=== PATIENT | female | born 1955 | race Caucasian/White ===

== ENCOUNTER → 2017-12-09 09:16 | Outpatient (CLI) | payer BC, SELFPAY ==
[2017-12-09 12:24] LABS: Absolute Lymphocyte Count 1.89 X10^3/ul (0.83-4.51); Absolute Neutrophil Count 3.3 X10^3/uL (2.0-7.7); Basophil# 0.02 X10^3/uL; Basophil% 0.3 % (0-1); Eosinophils% 3.3 % (0-5); Hematocrit 39.5 % (37-47); Hemoglobin 12.7 g/dl (12.0-15.0); Lymphocyte # 1.89 X10^3/ul (4.0); Lymphocyte % 31.1 % (19-41); Mean Corp Hgb Conc 32.2 g/gl (32-36); Mean Corpuscular Hgb 29.3 pg (27.0-32.0); Mean Corpuscular Volume 91.2 fL (81-99); Mean Platelet Vol. 10.8 fl (6.2-12.0); Monocyte# 0.71 X10^3/uL; Monocyte% 11.7 % (0-10); Neutrophil # 3.26 X10^3/uL (2.7-7.7); Neutrophil % 53.6 % (47-70); Platelet Count 286 K/mm3 (150-450); RBC Distribution Width CV 13.7 % (11.6-14.6); RBC Distribution Width SD 45.5 fl (35.1-43.9); Red Blood Count 4.33 M/mm3 (4.2-5.4); White Blood Count 6.1 K/mm3 (4.4-11.0)
[2017-12-09 12:36] LABS: POSITIVE COUNT NO; POSITIVE DIFFERENTIAL NO; POSITIVE MORPHOLOGY NO
[2017-12-09 12:37] LABS: Hemoglobin A1c 5.8 % (4.2-6.3)
[2017-12-09 12:40] LABS: ALB/GLOB Ratio 1.2 RATIO (0.9-2.4); AST(SGOT) 18 U/L (15-37); Alanine Aminotransfer ALT/SGPT 26 U/L (13-56); Albumin, Serum 3.7 g/dL (3.2-5.0); Alkaline Phosphatase 64 U/L (45-117); Anion Gap 4 (5-15); BUN 20 mg/dL (7-18); BUN/Creat Ratio 30.7 RATIO (10-20); Calcium,Total 8.4 mg/dL (8.5-10.1); Chloride 104 mmol/L (98-107); Creatinine, Serum 0.65 mg/dL (0.55-1.02); EST Glomerular Filtration Rate 98 mL/min (>60); Est Glom Filt Rate - Afr Amer 119 mL/min (>60); Globulin 3.2 g/dL (2.2-4.2); Glucose 98 mg/dL (74-106); Potassium 3.9 mmol/L (3.5-5.1); Protein, Total 6.9 g/dL (6.4-8.2); Sodium Level 139 mmol/L (136-145); T4 Free Direct 1.25 ng/dL (0.76-1.46); Thyroid Stim Hormone (TSH) 1.24 uIU/mL (0.358-3.74)
== END ==
PROVIDERS: Family Provider Family Medicine; PCP Family Medicine; Visit Provider Family Medicine
DX: E03.9 Hypothyroidism, unspecified (principal); I10 Essential (primary) hypertension; R73.01 Impaired fasting glucose
CPT/HCPCS: 36415; 80053; 83036; 84439; 84443; 85025

== ENCOUNTER → 2018-12-13 08:31 | Outpatient (CLI) | payer BC, SELFPAY ==
[2018-12-13 10:42] LABS: Absolute Lymphocyte Count 2.44 X10^3/ul (0.83-4.51); Absolute Neutrophil Count 2.4 X10^3/uL (2.0-7.7); Basophil# 0.04 X10^3/uL; Basophil% 0.7 % (0-1); Eosinophil# 0.22 X10^3/uL; Eosinophils% 3.8 % (0-5); Hematocrit 39.9 % (37-47); Hemoglobin 13.1 g/dl (12.0-15.0); Lymphocyte # 2.44 X10^3/ul (4.0); Lymphocyte % 42.3 % (19-41); Mean Corp Hgb Conc 32.8 g/gl (32-36); Mean Corpuscular Hgb 29.3 pg (27.0-32.0); Mean Corpuscular Volume 89.3 fL (81-99); Mean Platelet Vol. 10.7 fl (6.2-12.0); Monocyte# 0.68 X10^3/uL; Monocyte% 11.8 % (0-10); Neutrophil # 2.39 X10^3/uL (2.7-7.7); Neutrophil % 41.4 % (47-70); Platelet Count 239 K/mm3 (150-450); RBC Distribution Width CV 14.1 % (11.6-14.6); RBC Distribution Width SD 46.1 fl (35.1-43.9); Red Blood Count 4.47 M/mm3 (4.2-5.4); White Blood Count 5.8 K/mm3 (4.4-11.0)
[2018-12-13 10:53] LABS: POSITIVE COUNT NO; POSITIVE DIFFERENTIAL NO; POSITIVE MORPHOLOGY NO
[2018-12-13 11:00] LABS: ALB/GLOB Ratio 1.1 RATIO (0.9-2.4); AST(SGOT) 17 U/L (15-37); Alanine Aminotransfer ALT/SGPT 26 U/L (13-56); Albumin, Serum 3.8 g/dL (3.2-5.0); Alkaline Phosphatase 61 U/L (45-117); Anion Gap 6 (5-15); BUN 23 mg/dL (7-18); BUN/Creat Ratio 29.6 RATIO (10-20); Calcium,Total 8.7 mg/dL (8.5-10.1); Chloride 105 mmol/L (98-107); Creatinine, Serum 0.78 mg/dL (0.55-1.02); EST Glomerular Filtration Rate 80 mL/min (>60); Est Glom Filt Rate - Afr Amer 96 mL/min (>60); Globulin 3.4 g/dL (2.2-4.2); Glucose 108 mg/dL (74-106); Potassium 3.8 mmol/L (3.5-5.1); Protein, Total 7.2 g/dL (6.4-8.2); Sodium Level 141 mmol/L (136-145); Thyroid Stim Hormone (TSH) 0.35 uIU/mL (0.358-3.74)
== END ==
PROVIDERS: Family Provider Family Medicine; PCP Family Medicine; Visit Provider Family Medicine
DX: I10 Essential (primary) hypertension (principal); R73.01 Impaired fasting glucose; G25.81 Restless legs syndrome; E03.9 Hypothyroidism, unspecified
CPT/HCPCS: 36415; 80053; 84443; 85025

== ENCOUNTER → 2019-01-31 | Outpatient (CLI) | payer BC, SELFPAY | END | disposition home or self-care (01) | LOC: LAB.FUTURE 11:02 | PROVIDERS: Family Provider Family Medicine; PCP Family Medicine; Visit Provider Family Medicine | DX: E03.9 Hypothyroidism, unspecified (principal) | CPT/HCPCS: 36415; 84443 ==

== ENCOUNTER → 2020-07-09 09:59 | Outpatient (CLI) | payer OTHER, SELFPAY ==
[2020-07-09 12:20] LABS: Absolute Lymphocyte Count 1.84 X10^3/uL (0.83-4.51); Absolute Neutrophil Count 4.1 X10^3/uL (2.0-7.7); Basophil# 0.05 X10^3/uL; Basophil% 0.7 % (0-1); Eosinophil# 0.15 X10^3/uL; Eosinophils% 2.2 % (0-5); Hematocrit 42.5 % (37-47); Hemoglobin 13.4 g/dL (12.0-15.0); Lymphocyte # 1.84 X10^3/ul (4.0); Lymphocyte % 27.1 % (19-41); Mean Corp Hgb Conc 31.5 g/dL (32-36); Mean Corpuscular Hgb 28.6 pg (27.0-32.0); Mean Corpuscular Volume 90.8 fL (81-99); Mean Platelet Vol. 11.3 fl (6.2-12.0); Monocyte# 0.64 X10^3/uL; Monocyte% 9.4 % (0-10); NRBC Flagged by Analyzer 0 % (0-5); Neutrophil # 4.09 X10^3/uL (2.7-7.7); Neutrophil % 60.5 % (47-70); Platelet Count 263 K/mm3 (150-450); RBC Distribution Width CV 13.8 % (11.6-14.6); RBC Distribution Width SD 46.3 fl (35.1-43.9); Red Blood Count 4.68 M/mm3 (4.2-5.4); White Blood Count 6.8 K/mm3 (4.4-11.0)
[2020-07-09 12:52] LABS: ALB/GLOB Ratio 1.1 RATIO (0.9-2.4); AST(SGOT) 16 U/L (15-37); Alanine Aminotransfer ALT/SGPT 30 U/L (13-56); Albumin, Serum 3.8 g/dL (3.2-5.0); Alkaline Phosphatase 68 U/L (45-117); Anion Gap 8 (5-15); BUN 26 mg/dL (7-18); BUN/Creat Ratio 36.3 RATIO (10-20); Calcium,Total 8.7 mg/dL (8.5-10.1); Chloride 104 mmol/L (98-107); Creatinine, Serum 0.72 mg/dL (0.55-1.02); EST Glomerular Filtration Rate 87 mL/min (>60); Est Glom Filt Rate - Afr Amer 105 mL/min (>60); Globulin 3.4 g/dL (2.2-4.2); Glucose 99 mg/dL (74-106); Potassium 3.6 mmol/L (3.5-5.1); Protein, Total 7.2 g/dL (6.4-8.2); Sodium Level 140 mmol/L (136-145); Thyroid Stim Hormone (TSH) 0.95 uIU/mL (0.358-3.74)
== END ==
PROVIDERS: PCP Family Medicine; Visit Provider Family Medicine
DX: E03.9 Hypothyroidism, unspecified (principal); I10 Essential (primary) hypertension; R73.01 Impaired fasting glucose
CPT/HCPCS: 36415; 80053; 84443; 85025

== ENCOUNTER → 2021-01-07 09:55 | Outpatient (CLI) | payer MEDICARE, OTHER, SELFPAY ==
[2021-01-07 12:47] LABS: Absolute Lymphocyte Count 2.02 X10^3/uL (0.83-4.51); Absolute Neutrophil Count 4.6 X10^3/uL (2.0-7.7); Basophil# 0.04 X10^3/uL; Basophil% 0.5 % (0-1); Eosinophil# 0.18 X10^3/uL; Eosinophils% 2.4 % (0-5); Hematocrit 44.2 % (37-47); Hemoglobin 14.1 g/dL (12.0-15.0); Lymphocyte # 2.02 X10^3/ul (0.83-4.51); Lymphocyte % 26.8 % (19-41); Mean Corp Hgb Conc 31.9 g/dL (32-36); Mean Corpuscular Volume 90.9 fL (81-99); Mean Platelet Vol. 11.7 fl (6.2-12.0); Monocyte% 9.3 % (0-10); NRBC Flagged by Analyzer 0 % (0-5); Neutrophil # 4.57 X10^3/uL (2.7-7.7); Neutrophil % 60.7 % (47-70); Platelet Count 302 K/mm3 (150-450); RBC Distribution Width CV 13.4 % (11.6-14.6); RBC Distribution Width SD 45.4 fl (35.1-43.9); Red Blood Count 4.86 M/mm3 (4.2-5.4); White Blood Count 7.5 K/mm3 (4.4-11.0)
[2021-01-07 13:15] LABS: Anion Gap 5 (5-15); BUN 19 mg/dL (7-18); BUN/Creat Ratio 23.2 RATIO (10-20); Calcium,Total 9.1 mg/dL (8.5-10.1); Chloride 104 mmol/L (98-107); Creatinine, Serum 0.82 mg/dL (0.55-1.02); EST Glomerular Filtration Rate 74 mL/min (>60); Est Glom Filt Rate - Afr Amer 90 mL/min (>60); Glucose 102 mg/dL (74-106); Potassium 3.8 mmol/L (3.5-5.1); Sodium Level 140 mmol/L (136-145); T4 Free Direct 1.16 ng/dL (0.76-1.46); Thyroid Stim Hormone (TSH) 1.06 uIU/mL (0.358-3.74)
== END ==
PROVIDERS: PCP Family Medicine; Referring Provider Family Medicine; Visit Provider Family Medicine
DX: I10 Essential (primary) hypertension (principal); R73.01 Impaired fasting glucose; E03.9 Hypothyroidism, unspecified; R53.83 Other fatigue
CPT/HCPCS: 36415; 80048; 84439; 84443; 85025

== ENCOUNTER → 2021-02-06 09:15 | Outpatient (CLI) | payer MEDICARE, OTHER, SELFPAY ==
[2021-02-06 12:39] LABS: Thyroid Stim Hormone (TSH) 0.89 uIU/mL (0.358-3.74)
== END ==
PROVIDERS: PCP Family Medicine; Referring Provider Family Medicine; Visit Provider Family Medicine
DX: E03.9 Hypothyroidism, unspecified (principal)
CPT/HCPCS: 36415; 84443

== ENCOUNTER 2021-09-29 07:30 | Emergency (ER) | payer MEDICARE, OTHER, SELFPAY ==
[2021-09-29 07:31] VITALS: BP 151/86; PULSE 108; RESP 18; TEMP 36; O2SAT 92; BMI 37.3
--- NOTE | 2021-09-29 07:44 | CT_ITS ---
STUDY: CT ABDOMEN AND PELVIS WITH CONTRAST REASON FOR EXAM: Female, 65 years old. Abdominal pain -- IV PO Contrast RADIATION DOSAGE (If Supplied By Facility): CTDIvol = ( 20.22 ) mGy, DLP = ( 1380.55 ) mGycm TECHNIQUE: Transaxial images were obtained from the dome of the diaphragm to the symphysis pubis with oral contrast. Oral and amp; IV Gastrografin and amp; 100mL Isovue-370 was administered. Sagittal and coronal images were reconstructed. Individualized dose optimization techniques were used for this CT. COMPARISON: None. FINDINGS: The visualized lung bases are unremarkable. The visualized portions of the heart are within normal limits. Normal liver. Normal gallbladder and extrahepatic biliary system. Normal spleen. Normal pancreas. Normal bilateral adrenal glands. Normal right kidney. Normal left kidney. Normal visualized stomach. Moderately dilated ileum. Irregular circumferential wall thickening of the mid sigmoid colon worrisome for colonic carcinoma. Moderate dilatation of the colon proximal to the suspected mass. There is non-visualization of the appendix. Normal abdominal aorta. Normal inferior vena cava. Normal retroperitoneum. Normal urinary bladder. Small amount of free fluid in the pelvis. Normal abdominal wall. Normal osseous structures. 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 Electronically Signed: Tashi Brown MD at 11:04 EST Tel , Service support ,
--- NOTE | 2021-09-29 07:46 | ED.VIS.GI ---
HPI HPI - GI History of Present Illness Chief Complaint: Abd Pain Informant: patient Abdominal Pain/Flank Pain Onset: Weeks (1) Context: Gradual Onset Timing: Intermittent Quality: Aching, Burning and Stabbing Location: Diffuse Worsened by: Movement Relieved by: Nothing Nausea/Vomiting/Emesis GI Symptom: Positive for Nausea and Vomiting Diarrhea/Melena/Hematochezia GI Symptom: Negative for Diarrhea, Melena and Hematochezia Associated Symptoms Associated Symptoms: Negative for Dysuria, Frequency and Hematuria Narrative Narrative: Patient presents with abdominal pain and constipation that has been getting worse over the past week. Patient states it is gradually getting worse. Patient states her pain is burning, stabbing, and aching. Patient states her pain comes and goes. Patient states her pain is diffuse across her abdomen. Patient states it is worse when she moves certain ways. Patient states she has been constipated for the past week. Patient states she has tried magnesium citrate, seae-[id number]-[id number] enemas, and rull-jcg-sirpfac laxatives without relief. Patient states she started having some nausea and vomiting over the last couple days. Patient states her emesis is mostly dry heaves. Patient denies any melena or hematochezia. Patient denies any urinary complaints. [facility] Medical History (Updated 09/29/21 @ 13:[address] Maurice Plummer, ) Abnormal CT scan, colon Anxiety Depression Hypertension Hypothyroidism Home Medications fluoxetine 40 mg PO DAILY 09/29/21 [History Last Taken Unknown] hydrochlorothiazide 25 mg PO DAILY 09/29/21 [History Last Taken Unknown] hydrocodone-acetaminophen 1 tab PO Q6H PRN PRN 3 Days #10 tablet 09/29/21 [Rx Last Taken Unknown] levothyroxine 125 mcg PO DAILY 09/29/21 [History Last Taken Unknown] omeprazole 20 mg PO DAILY #30 capsule 09/29/21 [Rx Last Taken Unknown] ondansetron 4 mg PO Q8H PRN PRN #10 tab 09/29/21 [Rx Last Taken Unknown] Allergy/AdvReac Type Severity Reaction Status Date / Time Penicillins Allergy Anaphylaxis Verified 09/29/21 07:30 Social History Smoking Status: Unknown if ever smoked ROS ROS ED Constitutional Constitutional ED: Denies chills or fever(s) Eyes Eyes: Denies blurry vision or change in vision ENT ENT ED: Denies rhinorrhea or sore throat Cardiovascular Cardiovascular: Denies chest pain or palpitations Respiratory/Chest Respiratory/Chest: Reports dyspnea; Denies cough Gastrointestinal Gastrointestinal: Reports abdominal pain, constipation, nausea and vomiting Genitourinary Genitourinary ED: Denies dysuria or hematuria Musculoskeletal Musculoskeletal: Denies back pain or neck pain Integumentary Denies abscess or rash Neurologic Neurologic: Denies headache(s) or weakness Allergic/Immunologic Allergic/Immunologic ED: Denies mouth swelling or urticaria EXAM Physical Exam Const Vital Signs: 09/29/21 07:31 09/29/21 11:16 Temperature 96.8 F L 98.5 F Temperature Source Temporal Oral Pulse Rate 108 H 66 Respiratory Rate 18 16 Blood Pressure 151/86 H 155/65 H Blood Pressure Mean 107 95 Pulse Ox 92 95 Oxygen Delivery Method Room Air Room Air Positive well nourished and well developed General Appearance ED: well developed HEENT Reports moist mucous membranes Neck supple and no JVD Resp normal respiratory effort and clear to auscultation bilaterally Cardio regular rate, regular rhythm and no murmurs GI normal to inspection, nondistended, normoactive bowel sounds Palpation: soft and tender epigastric, LLQ, RLQ, LUQ, RUQ, periumbilical and suprapubic; Negative for guarding or rebound tenderness present Extremity normal to inspection General Extremety ED: Negative for edema or tenderness General Extremity: Negative for edema Neuro oriented x3, CN's II-XII intact bilaterally and no sensory deficits noted Sensorium / Orientation: alert Motor Exam: strength 5/5 throughout Psych mental status grossly normal Skin no rashes or lesions noted MDM MDM MDM Narrative Medical decision making narrative: Patient was given IV fluids, morphine, and Zofran. CBC shows a mild leukocytosis of 14.1. Hemoglobin was 15.6. Comprehensive metabolic profile showed a hypokalemia of 2.9. BUN was slightly elevated at 29. Creatinine was normal. Lipase was normal. Urinalysis does not show any evidence of urinary tract infection. CT scan of the abdomen pelvis was obtained. There is both colonic carcinoma of the sigmoid colon with moderate colonic and ileal obstruction. Because of this, case was discussed with Dr. Husain from general surgery. She was in to evaluate the patient and will follow up with the patient as an outpatient. She recommended discharging the patient home with [place], Zofran, and omeprazole. She will contact patient tomorrow to schedule follow-up treatments. Patient is feeling better on reevaluation. Patient was given a dose of potassium here prior to discharge. Patient understands and is agreeable with the plan. All questions were answered. Lab Data Attestation: I reviewed the patient's lab results. Labs: Laboratory Results - last 24 hr 09/29/21 09/29/21 09/29/21 08:00 08:00 10:10 WBC 14.1 H RBC 5.29 Hgb 15.6 H Hct 46.1 MCV 87.1 MCH 29.5 MCHC 33.8 RDW Std Deviation 41.9 RDW Coeff of [place]lee 13.2 Plt Count 366 MPV 10.7 Immature Gran % (Auto) 0.300 Neut % (Auto) 73.6 H Lymph % (Auto) 13.8 L [place] % (Auto) 11.9 H Eos % (Auto) 0.1 Baso % (Auto) 0.3 Absolute Neuts (auto) 10.4 H Absolute Lymphs (auto) 1.94 Nucleated RBC % 0 [address] Path Review May foll Sodium 137 Potassium 2.9 L Chloride 98 Carbon Dioxide 26.0 Anion Gap 13 BUN 29 H Creatinine 0.89 Estim Creat Clear Calc 68.15 Est GFR (MDRD) Af Amer 82 Est GFR (MDRD) Non-Af 68 BUN/Creatinine Ratio 32.6 H Glucose 149 H Calcium 9.9 Total Bilirubin 1.10 H AST 20 ALT 26 Alkaline Phosphatase 72 Total Protein 7.8 Albumin 3.9 Globulin 3.9 Albumin/Globulin Ratio 1.0 Lipase 27 L Urine Color Yellow Urine Clarity Clear Urine pH 6.0 Ur Specific [place] 1.025 Urine Protein 30 H Urine Glucose (UA) Normal Urine Ketones 150 A* Urine Occult Blood 25 H Urine Nitrite Negative Urine Bilirubin 3 H Urine Urobilinogen 4 H Ur Leukocyte Esterase Negative Urine RBC 0 SEEN Urine WBC 0 SEEN Ur Squamous Epith Cells 0-5 SEEN Urine Bacteria 0 SEEN Urine Mucus 0 SEEN Radiography Diagnostic Testing: Clinical Impression(s) from Imaging Studies Abdomen/Pelvis CT 09/29/21 07:44 IMPRESSION: 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 Electronically Signed: Tashi Brown MD at 11:04 EST Tel , Service support , Discharge Plan Triage Chief Complaint: Abd Pain ED Provider: Maurice Plummer Dx/Rx/DC Orders Clinical Impression: Abnormal CT scan, colon Instructions: ED Abdominal Pain Unkn Cause Fem Prescriptions: New hydrocodone-acetaminophen [hydrocodone-acetaminophen] 1 TABLET tablet 1 tab PO Q6H PRN PRN (Reason: Pain) 3 Days Qty: 10 RF: 0 omeprazole [omeprazole] 20 MG capsule 20 mg PO DAILY Qty: 30 RF: 0 ondansetron [ondansetron] 4 MG tablet 4 mg PO Q8H PRN PRN (Reason: Nausea) Qty: 10 RF: 0 No Action fluoxetine 40 mg capsule 40 mg PO DAILY RF: 0 levothyroxine 125 mcg tablet 125 mcg PO DAILY RF: 0 hydrochlorothiazide 25 mg tablet 25 mg PO DAILY RF: 0 Primary Care Provider: Raz Washington Referrals: Abi Husain MD [STAFF PHYSICIAN] - As soon as possible Raz Washington MD [Primary Care Provider] - Disposition Disposition: Home, Self Care
[2021-09-29] MEDS: 0.9% Normal Saline 1,000 ML 1000 ML IV (07:58)
[2021-09-29] MEDS: Ondansetron 4 MG/2 ML Vial IV ×2 (07:58→13:34)
[2021-09-29] MEDS: Morphine 4 MG/ML Syringe IV (07:58)
[2021-09-29 08:10] LABS: Absolute Lymphocyte Count 1.94 X10^3/uL (0.83-4.51); Absolute Neutrophil Count 10.4 X10^3/uL (2.0-7.7); Basophil# 0.04 X10^3/uL; Basophil% 0.3 % (0-1); Eosinophil# 0.01 X10^3/uL; Eosinophils% 0.1 % (0-5); Hematocrit 46.1 % (37-47); Hemoglobin 15.6 g/dL (12.0-15.0); Lymphocyte # 1.94 X10^3/ul (0.83-4.51); Lymphocyte % 13.8 % (19-41); Mean Corp Hgb Conc 33.8 g/dL (32-36); Mean Corpuscular Hgb 29.5 pg (27.0-32.0); Mean Corpuscular Volume 87.1 fL (81-99); Mean Platelet Vol. 10.7 fl (6.2-12.0); Monocyte# 1.67 X10^3/uL; Monocyte% 11.9 % (0-10); NRBC Flagged by Analyzer 0 % (0-5); Neutrophil # 10.39 X10^3/uL (2.7-7.7); Neutrophil % 73.6 % (47-70); POSITIVE DIFFERENTIAL YES; Platelet Count 366 K/mm3 (150-450); RBC Distribution Width CV 13.2 % (11.6-14.6); RBC Distribution Width SD 41.9 fl (35.1-43.9); Red Blood Count 5.29 M/mm3 (4.2-5.4); White Blood Count 14.1 K/mm3 (4.4-11.0)
[2021-09-29 08:11] LABS: Differential Indicated SCAN CRITERIA MET
[2021-09-29 08:24] LABS: AST(SGOT) 20 U/L (15-37); Alanine Aminotransfer ALT/SGPT 26 U/L (13-56); Albumin, Serum 3.9 g/dL (3.2-5.0); Alkaline Phosphatase 72 U/L (45-117); Anion Gap 13 (5-15); BUN 29 mg/dL (7-18); BUN/Creat Ratio 32.6 RATIO (10-20); Calcium,Total 9.9 mg/dL (8.5-10.1); Chloride 98 mmol/L (98-107); Creatinine, Serum 0.89 mg/dL (0.55-1.02); EST Glomerular Filtration Rate 68 mL/min (>60); Est Glom Filt Rate - Afr Amer 82 mL/min (>60); Estimated Creatinine Clearance 68.15 ml/min; Globulin 3.9 g/dL (2.2-4.2); Glucose 149 mg/dL (74-106); Lipase 27 U/L (73-393); Potassium 2.9 mmol/L (3.5-5.1); Protein, Total 7.8 g/dL (6.4-8.2); Sodium Level 137 mmol/L (136-145)
[2021-09-29 10:16] LABS: Bacteria 0 SEEN /hpf (None Seen); Mucous, Urine 0 SEEN /hpf (<or=2+); Red Blood Cells-Urine 0 SEEN /hpf (0-5); White Blood Cells 0 SEEN /hpf (0-5)
[2021-09-29 10:17] LABS: Color, Urine Yellow (Yellow); Glucose, Dipstick Normal (Normal); Leukocyte Esterase-Dipstick Negative /ul (Negative); Nitrite-Dipstick Negative (Negative); Occult Blood-Urine 25 /ul (Negative); Protein-Dipstick 30 mg/dl (Negative); Specific Gravity, Urine 1.025 (1.002-1.030); Urine Clarity Clear (Clear); Urine Urobilinogen 4 mg/dl (Normal)
[2021-09-29 10:22] LABS: Ketone-Dipstick 150 mg/dl (Negative); Urine Bilirubin Dipstick 3 mg/dL (Negative)
[2021-09-29 10:24] LABS: Squamous Epithelial Cells - UA 0-5 SEEN /hpf (5-10)
[2021-09-29 11:16] VITALS: BP 155/65; PULSE 66; RESP 16; TEMP 36.9; O2SAT 95
--- NOTE | 2021-09-29 13:01 | CON.PCM.SX_ITS ---
Assessment & Plan Assessment/Plan (1) Abnormal CT scan, colon: PLAN: Will plan for patient to stay on clear liquid diet, avoid carbonated beverages. I will contact her tomorrow to schedule for colonoscopy Discharge from ED on PPI, zofran and pain meds Her cell phone number is HPI Consult Data Date of Consult: 09/29/21 HPI Narrative HPI Narrative: KATIANA MIRANDA, is a 65 F who presents with abdominal pain. I was asked by Dr. Maurice Plummer to evaluate this patient at [facility]. The patient notes an increasing problem with constipation for the past several weeks.. She states that she has jeny using miralax, enemas, and suppositories. Her last bowel movement which she states was small was Thursday morning (yesterday). She has been passing flatus. She does complain of lower abdominal sharp pain intermittently, sometimes 8 out of 10, but presently 4 out of 10. She states that in the past several days, she has had the abdominal pain. She notes increased intraabdominal bloating and increased eructation. She has also noted dry heaves and nausea and with decreased appetite. She denies fevers. She presented to [facility] ED and found to have elevated WBC with left shift. CT scan is suggestive of large bowel obstruction She had a colonoscopy in 2012, but couldn't advance beyond splenic flexure, barium enema was read out as no colonic lesions. She denies anemia. She denies blood in her stools, she denies melena. She denies hematemesis. No colon cancer noted in immediate family. [facility] Medical History Abnormal CT scan, colon Anxiety Depression Hypertension Hypothyroidism Home Medications fluoxetine 40 mg PO DAILY 09/29/21 [History Last Taken Unknown] hydrochlorothiazide 25 mg PO DAILY 09/29/21 [History Last Taken Unknown] hydrocodone-acetaminophen 1 tab PO Q6H PRN PRN 3 Days #10 tablet 09/29/21 [Rx Last Taken Unknown] levothyroxine 125 mcg PO DAILY 09/29/21 [History Last Taken Unknown] omeprazole 20 mg PO DAILY #30 capsule 09/29/21 [Rx Last Taken Unknown] ondansetron 4 mg PO Q8H PRN PRN #10 tab 09/29/21 [Rx Last Taken Unknown] Allergy/AdvReac Type Severity Reaction Status Date / Time Penicillins Allergy Anaphylaxis Verified 09/29/21 07:30 Surgical History no surgical history no surgical history (Past surgical history: hysterectomy and tonsillectomy) Social History Smoking Status: Unknown if ever smoked ROS Constitutional Constitutional: Reports anorexia; Denies fever(s) Respiratory/Chest Respiratory/Chest: Reports shortness of breath with exertion Gastrointestinal Gastrointestinal: Reports other Details: see HPI Genitourinary Genitourinary: Denies hematuria Musculoskeletal Musculoskeletal: Reports joint pain Integumentary Integumentary: Reports jaundice Neurologic Neurologic: Reports abnormal gait Physical Exam Const alert, oriented x3 and no apparent distress HEENT normocephalic and head/scalp atraumatic Eyes EOMs intact bilaterally Neck supple Resp normal respiratory effort and no retractions Cardio Rate: regular rate GI soft to palpation GI Narrative: abdomen is soft and benign, no peritoneal signs noted, obese, cannot determine if any masses/organomegaly/hernias due to body habitus Extremity General Extremity: Negative for edema Skin no jaundice Lab / Micro Data Result Diagrams: 09/29/21 08:00 09/29/21 08:00 Labs: Laboratory Results - last 24 hr 09/29/21 08:00: WBC 14.1 H, RBC 5.29, Hgb 15.6 H, Hct 46.1, MCV 87.1, MCH 29.5, MCHC 33.8, RDW Std Deviation 41.9, RDW Coeff of Marlee 13.2, Plt Count 366, MPV 10.7, Immature Gran % (Auto) 0.300, Neut % (Auto) 73.6 H, Lymph % (Auto) 13.8 L, [place] % (Auto) 11.9 H, Eos % (Auto) 0.1, Baso % (Auto) 0.3, Absolute Neuts (auto) 10.4 H, Absolute Lymphs (auto) 1.94, Nucleated RBC % 0, Diff Path Review January09/29/21 08:00: Sodium 137, Potassium 2.9 L, Chloride 98, Carbon Dioxide 26.0, Anion Gap 13, BUN 29 H, Creatinine 0.89, Estim Creat Clear Calc 68.15, Est GFR ( MDRD) Af Amer 82, Est GFR (MDRD) Non-Af 68, BUN/Creatinine Ratio 32.6 H, Glucose 149 H, Calcium 9.9, Total Bilirubin 1.10 H, AST 20, ALT 26, Alkaline Phosphatase 72, Total Protein 7.8, Albumin 3.9, Globulin 3.9, Albumin/Globulin Ratio 1.0, Lipase 27 L 09/29/21 10:10: Urine Color Yellow, Urine Clarity Clear, Urine pH 6.0, Ur Specific [place] 1.025, Urine Protein 30 H, Urine Glucose (UA) Normal, Urine Ketones 150 A*, Urine Occult Blood 25 H, Urine Nitrite Negative, Urine Bilirubin 3 H, Urine Urobilinogen 4 H, Ur Leukocyte Esterase Negative, Urine RBC 0 SEEN, Urine WBC 0 SEEN, Ur Squamous Epith Cells 0-5 SEEN, Urine Bacteria 0 SEEN, Urine Mucus 0 SEEN Radiology Impression Abdomen/Pelvis CT 09/29/21 07:44 IMPRESSION: 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 Electronically Signed: Tashi Brown MD at 11:04 EST Tel , Service support ,
[2021-09-29 13:28] VITALS: BP 149/72; PULSE 78; RESP 18; O2SAT 99
[2021-09-29] MEDS: Potassium Chloride Oral Tablet 20 MEQ 40 MEQ PO (13:34)
[2021-09-30 13:52] LABS: Pathologist Review Reviewed
== END 2021-09-29 13:58 | disposition home or self-care (01) ==
PROVIDERS: Emergency Provider Emergency Medicine; PCP Family Medicine; Visit Provider Emergency Medicine
DX: R93.3 Abnormal findings on diagnostic imaging of other parts of digestive tract (principal); R11.2 Nausea with vomiting, unspecified; I10 Essential (primary) hypertension; E03.9 Hypothyroidism, unspecified; Z79.899 Other long term (current) drug therapy
CPT/HCPCS: 74177; 80053; 81001; 83690; 85025; 96361; 96374; 96375; 96376; 99284; J7030; Q9967; A4216; J2405

== ENCOUNTER 2021-10-08 07:56 | Outpatient (CLI) | payer MEDICARE, OTHER, SELFPAY ==
--- NOTE | 2021-10-08 08:08 | RAD_ITS ---
STUDY: GASTROGRAFIN ENEMA. REASON FOR EXAM: Female, 65 years old. Colonic obstruction FLUOROSCOPY TIME (if supplied): ( 62 seconds ) minutes/seconds. 14 images were obtained. TECHNIQUE: A college scouting coordinator film was obtained. Following this, contrast was introduced retrograde through the rectum. COMPARISON: None. FINDINGS: On the college scouting coordinator film, there is a gaseous distention of the colon and multiple small bowel loops. Retrograde flow of GASTROGRAFIN was obtained. There is retrograde obstruction to the flow of contrast in the mid sigmoid level. RAD/Barium Enema No Air Cont IMPRESSION: Obstruction to the retrograde flow of GASTROGRAFIN in the mid sigmoid level. Electronically Signed: [place] MD at 9:47 EST , Service support ,
== END 2021-10-08 23:59 | disposition short-term general hospital (02) ==
LOC: RAD 07:57
PROVIDERS: PCP Family Medicine; Referring Provider Surgery; Visit Provider Surgery
DX: K56.609 Unspecified intestinal obstruction, unspecified as to partial versus complete obstruction (principal)
CPT/HCPCS: 74270

== ENCOUNTER 2021-10-08 11:48 | Inpatient (IN) | payer MEDICARE, OTHER, SELFPAY ==
[2021-10-08] VITALS (8 sets, daily range): BP systolic 111–152; BP diastolic 51–85; PULSE 64–95; RESP 16–18; TEMP 36.3–37.1; O2SAT 95–99; BMI 35.9; BMI 37.5
--- NOTE | 2021-10-08 12:30 | EX.ED.DYSGE1 ---
HPI History of Present Illness Chief Complaint: Abd Pain Informant: patient Onset/Context/Timing Onset: Weeks Narrative Narrative: Patient sent in by Dr. Chacon secondary to large bowel obstruction. Patient reportedly was seen on the and found to have a large bowel obstruction. Dr. Husain attempted a colonoscopy but was unable to get through. She had a barium enema today that shows continued obstruction. Dr. Chacon was sending the patient to the emergency room. Dr. Gardiner was going to try a colonoscopy with possible stent placement. If this was unsuccessful Dr. Chacon may be taking the patient to surgery. Patient reports intermittent problems with constipation in the past but never anything this severe. She states she has not had a natural bowel movement in approximately week and a half. [facility] Medical History Abnormal CT scan, colon Anxiety Depression Hypertension Hypothyroidism Home Medications fluoxetine 40 mg PO DAILY 09/29/21 [History Last Taken Unknown] hydrochlorothiazide 25 mg PO DAILY 09/29/21 [History Last Taken Unknown] hydrocodone-acetaminophen 1 tab PO Q6H PRN PRN 3 Days #10 tablet 09/29/21 [Rx Last Taken Unknown] levothyroxine 125 mcg PO DAILY 09/29/21 [History Last Taken Unknown] omeprazole 20 mg PO DAILY #30 capsule 09/29/21 [Rx Last Taken Unknown] ondansetron 4 mg PO Q8H PRN PRN #10 tab 09/29/21 [Rx Last Taken Unknown] Allergy/AdvReac Type Severity Reaction Status Date / Time lisinopril Allergy Other Verified 10/08/21 13:00 Penicillins Allergy Anaphylaxis Verified 10/08/21 11:49 Social History Smoking Status: Unknown if ever smoked ROS ROS ED Constitutional Constitutional ED: Denies chills or fever(s) Eyes Eyes: Denies change in vision ENT ENT ED: Denies sore throat Cardiovascular Cardiovascular: Denies chest pain Respiratory/Chest Respiratory/Chest: Denies cough or dyspnea Gastrointestinal Gastrointestinal: Reports constipation, nausea, vomiting and other Details: Nausea and vomiting early in the course of illness, improved with antiemetics. ; Denies abdominal pain or diarrhea Genitourinary Genitourinary ED: Denies dysuria Musculoskeletal Musculoskeletal: Denies back pain Integumentary Denies rash Neurologic Neurologic: Denies headache(s) or weakness Psychiatric Psychiatric: Denies anxiety or depression Allergic/Immunologic Allergic/Immunologic ED: Denies urticaria EXAM Physical Exam Const Vital Signs: 10/08/21 11:48 Temperature 97.3 F L Temperature Source Temporal Pulse Rate 95 Respiratory Rate 18 Blood Pressure 152/82 H Blood Pressure Mean 105 Pulse Ox 98 Oxygen Delivery Method Room Air Positive well nourished and well developed General Appearance ED: well developed HEENT Reports moist mucous membranes Eyes PERRL and EOMs intact bilaterally Neck supple Chest Wall inspection of chest normal and palpation of chest normal Resp normal respiratory effort and clear to auscultation bilaterally Cardio regular rate and regular rhythm GI GI Narrative: Mild tenderness to palpation. No guarding or rebound. Hypoactive bowel sounds present. Palpation: soft Neuro Sensorium / Orientation: alert Psych mental status grossly normal Skin no rashes or lesions noted MDM MDM MDM Narrative Medical decision making narrative: Lab work and COVID test obtained per Dr. Chacon's request. Lab Data Labs: Laboratory Results - last 24 hr 10/08/21 10/08/21 12:18 12:35 WBC 12.8 H RBC 4.95 Hgb 14.9 Hct 43.3 MCV 87.5 MCH 30.1 MCHC 34.4 RDW Std Deviation 44.4 H RDW Coeff of [place] 14.0 Plt Count 341 MPV 10.0 Immature Gran % (Auto) 1.300 H Neut % (Auto) 68.1 Lymph % (Auto) 19.2 [place] % (Auto) 10.9 H Eos % (Auto) 0.2 Baso % (Auto) 0.3 Absolute Neuts (auto) 8.7 H Absolute Lymphs (auto) 2.46 Nucleated RBC % 0 PT 13.9 INR 1.1 APTT 30.3 Treatment and Re-Evaluation Comments:: Dr. Gardiner has been paged but I have yet to speak with him. I was notified by the OR that they are ready to take her down to endoscopy. I will speak with Dr. Gardiner when he is available but patient will be taken down to the endoscopy suite. Discharge Plan Triage Chief Complaint: Abd Pain ED Provider: Katey Collado Dx/Rx/DC Orders Clinical Impression: Large bowel obstruction Primary Care Provider: Raz Washington Disposition Disposition: [facility]
[2021-10-08 12:34] LABS: Absolute Lymphocyte Count 2.46 X10^3/uL (0.83-4.51); Absolute Neutrophil Count 8.7 X10^3/uL (2.0-7.7); Basophil# 0.04 X10^3/uL; Basophil% 0.3 % (0-1); Eosinophil# 0.03 X10^3/uL; Eosinophils% 0.2 % (0-5); Hematocrit 43.3 % (37-47); Hemoglobin 14.9 g/dL (12.0-15.0); Lymphocyte # 2.46 X10^3/ul (0.83-4.51); Lymphocyte % 19.2 % (19-41); Mean Corp Hgb Conc 34.4 g/dL (32-36); Mean Corpuscular Hgb 30.1 pg (27.0-32.0); Mean Corpuscular Volume 87.5 fL (81-99); Monocyte# 1.39 X10^3/uL; Monocyte% 10.9 % (0-10); NRBC Flagged by Analyzer 0 % (0-5); Neutrophil % 68.1 % (47-70); Platelet Count 341 K/mm3 (150-450); RBC Distribution Width SD 44.4 fl (35.1-43.9); Red Blood Count 4.95 M/mm3 (4.2-5.4); White Blood Count 12.8 K/mm3 (4.4-11.0)
[2021-10-08 12:51] LABS: International Normalized Ratio 1.1; Prothrombin Time (Protime)PT. 13.9 SECONDS (11.7-14.9)
[2021-10-08 12:52] LABS: Partial Thromboplast Time 30.3 Seconds (24.1-36.2)
[2021-10-08 13:10] LABS: AST(SGOT) 31 U/L (15-37); Alanine Aminotransfer ALT/SGPT 40 U/L (13-56); Albumin, Serum 3.8 g/dL (3.2-5.0); Alkaline Phosphatase 69 U/L (45-117); Anion Gap 11 (5-15); BUN 9 mg/dL (7-18); BUN/Creat Ratio 10.2 RATIO (10-20); Bilirubin, Direct 0.14 mg/dL (0.00-0.30); Calcium,Total 8.8 mg/dL (8.5-10.1); Chloride 103 mmol/L (98-107); Creatinine, Serum 0.88 mg/dL (0.55-1.02); EST Glomerular Filtration Rate 68 mL/min (>60); Est Glom Filt Rate - Afr Amer 83 mL/min (>60); Estimated Creatinine Clearance 68.92 ml/min; Globulin 3.2 g/dL (2.2-4.2); Glucose 105 mg/dL (74-106); Potassium 3.2 mmol/L (3.5-5.1); Prealbumin 21.3 mg/dL (20.0-40.0); Sodium Level 140 mmol/L (136-145)
[2021-10-08] MEDS: 0.9% Normal Saline 1,000 ML 15 ML IV (13:27)
--- NOTE | 2021-10-08 14:51 | EX.PCM.CON.G ---
HPI Consult Data Date of Consult: 10/08/21 HPI Narrative HPI Narrative: KATIANA MIRANDA, is a 65 F who presents to the ED with abdominal pain. She was here back on 09/29/2021 with worsening abdominal pain after having several weeks of worsening constipation. She had tried MiraLAX, enemas, suppositories and was not able to have a good bowel movement. She came into the ED for worsening abdominal distention and was seen by Dr. Abi Husain. A CT scan of the abdomen pelvis was suggestive of a large bowel obstruction. A colonoscopy for decompression was attempted but was unsuccessful. The patient was sent home and a consultation was put in for Dr. Anamaria Chacon to evaluate the patient. I was contacted for possible colonic stent placement. I requested that the patient get a double contrast barium enema. It displayed obstruction at the level of the sigmoid colon. Today she is coming for possible colonic decompression and possible sigmoid colectomy versus stent placement. All other 16 review of systems are negative except as per positive mentioned HPI [facility] Medical History Abnormal CT scan, colon Anxiety Depression Hypertension Hypothyroidism Home Medications fluoxetine 40 mg PO DAILY 09/29/21 [History Last Taken Unknown] hydrochlorothiazide 25 mg PO DAILY 09/29/21 [History Last Taken Unknown] hydrocodone-acetaminophen 1 tab PO Q6H PRN PRN 3 Days #10 tablet 09/29/21 [Rx Last Taken Unknown] levothyroxine 125 mcg PO DAILY 09/29/21 [History Last Taken Unknown] omeprazole 20 mg PO DAILY #30 capsule 09/29/21 [Rx Last Taken Unknown] ondansetron 4 mg PO Q8H PRN PRN #10 tab 09/29/21 [Rx Last Taken Unknown] Allergy/AdvReac Type Severity Reaction Status Date / Time Penicillins Allergy Anaphylaxis Verified Surgical History no surgical history Past surgical history: hysterectomy and tonsillectomy) Social History Smoking Status: Unknown if ever smoked Radiology Impression Abdomen/Pelvis CT 09/29/21 07:44 IMPRESSION: 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 Double contrast barium enema 10/08/21 Obstruction to the retrograde flow of GASTROGRAFIN in the mid sigmoid level. [facility] Medical History Abnormal CT scan, colon Anxiety Depression Hypertension Hypothyroidism Home Medications fluoxetine 40 mg PO DAILY 09/29/21 [History Last Taken Unknown] hydrochlorothiazide 25 mg PO DAILY 09/29/21 [History Last Taken Unknown] hydrocodone-acetaminophen 1 tab PO Q6H PRN PRN 3 Days #10 tablet 09/29/21 [Rx Last Taken Unknown] levothyroxine 125 mcg PO DAILY 09/29/21 [History Last Taken 10/08/21 09:30] omeprazole 20 mg PO DAILY #30 capsule 09/29/21 [Rx Last Taken Unknown] ondansetron 4 mg PO Q8H PRN PRN #10 tab 09/29/21 [Rx Last Taken Unknown] Allergy/AdvReac Type Severity Reaction Status Date / Time lisinopril Allergy Other Verified 10/08/21 13:00 Penicillins Allergy Anaphylaxis Verified 10/08/21 11:49 Social History Smoking Status: Unknown if ever smoked ROS Gastrointestinal Gastrointestinal: Reports bloating and early satiety Physical Exam Const alert General Appearance: cooperative Orientation / Consciousness: oriented to person HEENT hearing grossly normal bilaterally Head and Scalp: normal to inspection Face and Sinus: face symmetric Nose: external nose normal Mouth: oral and palatal mucosa normal Eyes conjunctivae normal General Eye: normal appearance of both eyes Neck full ROM General: normal visual inspection Lymph Lymphatic: no lymphadenopathy noted Chest inspection of chest normal and palpation of chest normal Chest: symmetrical chest wall rise Resp normal respiratory effort Effort and Inspection: able to speak in complete sentences Cardio regular rate GI Auscultation: normoactive bowel sounds Percussion: normal to percussion Rectal Exam: deferred Neuro Speech: speech normal Gait (Neuro): normal gait Lab / Micro Data Result Diagrams: 10/08/21 12:18 10/08/21 12:18 Labs: Laboratory Results - last 24 hr 10/08/21 12:18: WBC 12.8 H, RBC 4.95, Hgb 14.9, Hct 43.3, MCV 87.5, MCH 30.1, MCHC 34.4, RDW Std Deviation 44.4 H, RDW Coeff of Marlee 14.0, Plt Count 341, MPV 10.0, Immature Gran % (Auto) 1.300 H, Neut % (Auto) 68.1, Lymph % (Auto) 19.2, Worth % (Auto) 10.9 H, Eos % (Auto) 0.2, Baso % (Auto) 0.3, Absolute Neuts (auto) 8.7 H, Absolute Lymphs (auto) 2.46, Nucleated RBC % 0 10/08/21 12:18: Sodium 140, Potassium 3.2 L, Chloride 103, Carbon Dioxide 26.0, Anion Gap 11, BUN 9, Creatinine 0.88, Estim Creat Clear Calc 68.92, Est GFR (MDRD) Af Amer 83, Est GFR (MDRD) Non-Af 68, BUN/Creatinine Ratio 10.2, Glucose 105, Calcium 8.8, Total Bilirubin 0.50, Direct Bilirubin 0.14, AST 31, ALT 40, Alkaline Phosphatase 69, Total Protein 7.0, Albumin 3.8, Globulin 3.2, Prealbumin 21.3 10/08/21 12:35: PT 13.9, INR 1.1, APTT 30.3 Micro: Microbiology 10/08/21 12:35 Nasal Secretion SARS-CoV-2 Antigen (Rapid) - Final Assessment & Plan Assessment/Plan (1) Large bowel obstruction: PLAN: I will attempt decompression by colonoscopy. She was explained alternatives, risk, benefits including not withstanding bleeding, infection, sepsis, perforation, need for emergent . She will have an ASA of 1.
--- NOTE | 2021-10-08 16:01 | OP.CCLET_ITS ---
05/29/2022 Raz Washington Re : Colonoscopy procedure for Joanne Issa Dear Padmini This procedure was performed on Friday, October 08, 2021. My impressions and recommendations are as follows: Impressions : - Stricture in the sigmoid colon. - No specimens collected. Recommendations : - Admit the patient to hospital [facility] for ongoing care. - NPO. - No recommendation at this time regarding repeat colonoscopy. - Continue present medications. My findings are described in the full procedure note, which is enclosed. If I can be of further assistance, please feel free to contact me at . Sincerely, Yannick Gardiner, DO 10/08/2021 4:00:49 PM This report has been signed electronically.
--- NOTE | 2021-10-08 16:01 | OP.COLON_ITS ---
Patient Name: Joanne Issa Procedure Date: 10/08/2021 3:08 PM Date of : 1955 Age: 65 Procedure: Colonoscopy Indications: Abnormal barium enema Providers: Yannick Gardiner DO Medicines: See the Anesthesia note for documentation of the administered medications Patient Profile: This is a 65 year old female. Last Colonoscopy: 10 years ago. Complications: No immediate complications. Procedure: Pre-Anesthesia Assessment: - Prior to the procedure, a History and Physical was performed, and patient medications and allergies were reviewed. The patient is competent. The risks and benefits of the procedure and the sedation options and risks were discussed with the patient. All questions were answered and informed consent was obtained. Patient identification and proposed procedure were verified by the physician in the pre-procedure area. Mental Status Examination: alert and oriented. Respiratory Examination: clear to auscultation. CV Examination: normal. Prophylactic Antibiotics: The patient does not require prophylactic antibiotics. Prior Anticoagulants: The patient has taken no previous anticoagulant or antiplatelet agents. ASA Grade Assessment: II - A patient with mild systemic disease. After reviewing the risks and benefits, the patient was deemed in satisfactory condition to undergo the procedure. The anesthesia plan was to use moderate sedation / analgesia (conscious sedation). Immediately prior to administration of medications, the patient was re-assessed for adequacy to receive sedatives. The heart rate, respiratory rate, oxygen saturations, blood pressure, adequacy of pulmonary ventilation, and response to care were monitored throughout the procedure. The physical status of the patient was re-assessed after the procedure. After I obtained informed consent, the scope was passed under direct vision. Throughout the procedure, the patient's blood pressure, pulse, and oxygen saturations were monitored continuously. The colonoscope was introduced through the anus and advanced to the sigmoid colon to examine a stricture. This was the intended extent. The colonoscopy was performed without difficulty. The patient tolerated the procedure well. The quality of the bowel preparation was good. Moderate Sedation: Moderate (conscious) sedation was administered by the endoscopy nurse and supervised by the endoscopist. The patient's oxygen saturation, heart rate, blood pressure and response to care were monitored. Total physician intraservice time was 15 minutes. Scope In: 3:13:55 PM Scope Out: 3:50:00 PM Total Procedure Duration Time 0 hours 36 minutes 5 seconds Findings: The perianal and digital rectal examinations were normal. A benign-appearing, intrinsic severe stenosis measuring of unknown length was found in the sigmoid colon and was non-traversed. Impression: - Stricture in the sigmoid colon. - No specimens collected. Recommendation: - Admit the patient to hospital [facility] for ongoing care. - NPO. - No recommendation at this time regarding repeat colonoscopy. - Continue present medications. Procedure Code(s): --- Professional --- 29035, 53, Colonoscopy, flexible; diagnostic, including collection of specimen(s) by brushing or washing, when performed (separate procedure) 25696, 59, Moderate sedation services provided by the same physician or other qualified health home health care worker performing the diagnostic or therapeutic service that the sedation supports, requiring the presence of an independent trained observer to assist in the monitoring of the patient's level of consciousness and physiological status; initial 15 minutes of intraservice time, patient age 5 years or older CPT copyright 2017 [employer]. All rights reserved. The codes documented in this report are preliminary and upon machine riveter review may be revised to meet current compliance requirements. Yannick Gardiner DO 10/08/2021 4:00:49 PM This report has been signed electronically. Number of Addenda: 1 Note Initiated On: 10/08/2021 3:08 PM Addendum Number: 1 Addendum Date: 05/29/2022 6:15:03 AM MAC was used instead of moderate sedation for the patient. Yannick Gardiner DO 05/29/2022 6:15:09 AM This report has been signed electronically.
--- NOTE | 2021-10-08 16:07 | PCM.HP.STD ---
HPI - General General Date of Admission: 10/08/21 HPI Narrative KATIANA MIRANDA, is a 65 F who presented initially to the ER due to abdominal pain nausea and vomiting. Patient states since 09/23/2021 she has not been able to eat any solid food. Patient had a CT abdomen pelvis done on 09/29/2021 at the ER which showed a large bowel obstruction due to a stricture in the sigmoid. Patient denies previous episodes of diverticulitis. Last colonoscopy in 2012 was incomplete but BE was normal. Patient did see surgery and had an outpatient follow-up for colonoscopy last Thursday; however unable to get to the area of concern due to stool in the rectum. Patient did get a Gastrografin enema today which showed a very tight stricture and minimal contrast was able to get into the stricture and does not really look like any contrast got past. Dr. Gardiner did try to do a colonoscopy to get past the strictured area however he was not successful. [facility] Medical History Abnormal CT scan, colon Anxiety Depression Diverticulitis Hypertension Hypothyroidism Migraines Home Medications fluoxetine 40 mg PO DAILY 09/29/21 [History Last Taken Unknown] hydrochlorothiazide 25 mg PO DAILY 09/29/21 [History Last Taken Unknown] levothyroxine 125 mcg PO DAILY 09/29/21 [History Last Taken 10/08/21 09:30] omeprazole 20 mg PO DAILY #30 capsule 09/29/21 [Rx Last Taken Unknown] ondansetron 4 mg PO Q8H PRN PRN #10 tab 09/29/21 [Rx Last Taken Unknown] losartan 25 mg PO DAILY 10/08/21 [History Last Taken Unknown] Allergy/AdvReac Type Severity Reaction Status Date / Time lisinopril Allergy Other Verified 10/08/21 13:00 Penicillins Allergy Anaphylaxis Verified 10/08/21 11:49 Social History Smoking Status: Former smoker ROS Constitutional Constitutional: Reports anorexia; Denies chills ENT HEENT: Denies dizziness Cardiovascular Cardiovascular: Denies chest pain Respiratory/Chest Respiratory/Chest: Denies shortness of breath at rest Gastrointestinal Gastrointestinal: Reports abdominal pain and constipation; Denies diarrhea, heartburn, hematemesis, melena, nausea or vomiting Genitourinary Genitourinary: Denies burning urination Musculoskeletal Musculoskeletal: Denies joint pain Integumentary Integumentary: Denies rash Neurologic Neurologic: Denies abnormal gait, abnormal hearing or focal weakness Endocrine Endocrinology: Denies palpitations Hematologic/Lymphatic Hematologic/Lymphatic: Denies anemia, easy bleeding or easy bruising Vital Signs Vital Signs Vital Signs: 10/08/21 11:48 10/08/21 15:53 10/08/21 15:55 Temperature 97.3 F L 97.6 F L Temperature Source Temporal Temporal Pulse Rate 95 69 73 Respiratory Rate 18 16 16 Respiratory Pattern Normal Blood Pressure 152/82 H 119/85 H 127/58 H Blood Pressure Mean 105 96 81 Blood Pressure Source Monitor Monitor Blood Pressure Position Left Lateral Left Lateral Blood Pressure Location Right Arm Right Arm Baseline BP 152/82 152/82 Pulse Ox 98 97 98 Oxygen Delivery Method Room Air Room Air Room Air 10/08/21 16:00 Temperature Temperature Source Pulse Rate 69 Respiratory Rate 16 Respiratory Pattern Blood Pressure 132/65 H Blood Pressure Mean 87 Blood Pressure Source Monitor Blood Pressure Position Left Lateral Blood Pressure Location Right Arm Baseline BP 152/82 Pulse Ox 97 Oxygen Delivery Method Room Air Weight Weight: 250 lb Body Mass Index (BMI) 35.9 Physical Exam Const alert, oriented x3 and no apparent distress HEENT normocephalic and head/scalp atraumatic Resp normal respiratory effort Cardio regular rate GI soft to palpation; Negative for non-distended Palpation: Negative for tender or guarding Extremity no clubbing, cyanosis or edema Neuro CN's II-XII intact bilaterally Psych mental status grossly normal Results Lab / Micro Data Result Diagrams: 10/08/21 12:18 10/08/21 12:18 Labs: Laboratory Results - last 24 hr 10/08/21 12:18: WBC 12.8 H, RBC 4.95, Hgb 14.9, Hct 43.3, MCV 87.5, MCH 30.1, MCHC 34.4, RDW Std Deviation 44.4 H, RDW Coeff of Marlee 14.0, Plt Count 341, MPV 10.0, Immature Gran % (Auto) 1.300 H, Neut % (Auto) 68.1, Lymph % (Auto) 19.2, Harlan % (Auto) 10.9 H, Eos % (Auto) 0.2, Baso % (Auto) 0.3, Absolute Neuts (auto) 8.7 H, Absolute Lymphs (auto) 2.46, Nucleated RBC % 0 10/08/21 12:18: Sodium 140, Potassium 3.2 L, Chloride 103, Carbon Dioxide 26.0, Anion Gap 11, BUN 9, Creatinine 0.88, Estim Creat Clear Calc 68.92, Est GFR (MDRD) Af Amer 83, Est GFR (MDRD) Non-Af 68, BUN/Creatinine Ratio 10.2, Glucose 105, Calcium 8.8, Total Bilirubin 0.50, Direct Bilirubin 0.14, AST 31, ALT 40, Alkaline Phosphatase 69, Total Protein 7.0, Albumin 3.8, Globulin 3.2, Prealbumin 21.3 10/08/21 12:35: PT 13.9, INR 1.1, APTT 30.3 Micro: Microbiology 10/08/21 12:35 Nasal Secretion SARS-CoV-2 Antigen (Rapid) - Final Assessment & Plan Assessment/Plan (1) Large bowel obstruction: PLAN: Did review patient's previous CT scans barium enemas as well as labs with the patient and her [id number]. Patient was unable to get decompressed with GI due to tight stricture/anatomy. Discussed with patient and her [id number] we will plan for a laparoscopic sigmoidectomy, possible open. Including risks, but not limited to, bleeding, infection (superficial or intraabdominal), injury to another organ (small bowel, colon, ureter, etc.) requiring additional procedures, and blood clots. Also, discussed the pre-op, and antibiotics. All questions were answered. Scheduled for 730 tomorrow morning. Karina Chacon M.D. Pager: [phone] [facility] [address] [place] [address], [facility], [address] [place] [address] Office: [phone] Charges/Coding Visit Charges Inpatient E&M: 75914 Init Hosp L3
--- NOTE | 2021-10-08 16:09 | EKG12_ITS ---
Test Reason : PRE OP Blood Pressure : / mmHG Vent. Rate : 075 BPM Atrial Rate : 075 BPM P-R Int : 158 ms QRS Dur : 092 ms QT Int : 390 ms P-R-T Axes : 000 211 144 degrees QTc Int : 435 ms Suspect arm lead reversal, interpretation assumes no reversal Normal sinus rhythm Anterolateral infarct , age undetermined Abnormal ECG Confirmed by SADIA DOWD, TRISTAN ([id number]), videotape editor LKUE FABIAN ([id number]) on 10/09/2021 1:34:00 PM Referred By: aKrina Chacon Confirmed By:TRISTAN MCCULLOUGH MD
[2021-10-08] MEDS: metroNIDAZOLE 500 MG Tablet 1000 MG PO ×3 (17:26→21:59)
[2021-10-08] MEDS: Potassium Chloride Oral Tablet 20 MEQ 40 MEQ PO (17:43)
--- NOTE | 2021-10-08 19:50 | PCS.PANDOC ---
PANDEMIC DOCUMENTATION INITIATED: Date: 10/08/2021 Time: 9374
[2021-10-09] VITALS (17 sets, daily range): BP systolic 77–152; BP diastolic 41–82; PULSE 71–97; RESP 16–20; TEMP 36.1–37.2; O2SAT 92–98
--- NOTE | 2021-10-09 | COL._PTH ---
PATIENT: KATIANA MIRANDA LOC: MS2 U#:[id number] AGE/SX: 65/F ROOM: [facility] RE10/08/[address]: Dr. Karina Chacon MD : 1955 BED: 1 DIS: 10/13/2021 SPEC #: [id number] RECD: 10/09/21 14:21 STATUS: ANUJ RETerrence #: [id number] RAMONE: 10/09/21 00:[address]: Karina Chacon DEPT: SURGICAL PATHOLOGY RECD BY: Jose Roberto Nowak ENTERED: 10/10/21 12:18 SP TYPE: COLON OTHR DR: Dr. Raz Washington MD Tissues: A - Colon, NOS B - Colon Donuts C - Colon Donuts Procedures: Surgery Specimen Level III Surgery Specimen Level HEADER OPERATION: Laparoscopic sigmoid colectomy with TAP block PRE-OP DIAGNOSIS: Sigmoid mass with obstruction TISSUE SUBMITTED: A ? Sigmoid colon, long stitch ? distal, B ? Rectal donut, C ? Sigmoid donut MICROSCOPIC DIAGNOSIS A. Sigmoid colon, colectomy: Diverticulosis with focal area of marked stricture formation. Separate segment of colon with mucosal congestion and hemorrhage. See comment. B. Rectal donut: Colonic donut, no pathologic diagnosis. A minute benign lymph node. C. Sigmoid donut: Colonic donut, no pathologic diagnosis. SJ:rg 10/11/2021 COMMENT A. Area of stricture show marked thickening of the bowel wall. This case was reviewed and diagnosis discussed with Dr. Chacon on 10/11/2021 at 12:28 p.m. MICROSCOPIC DESCRIPTION Slides are reviewed. GROSS DESCRIPTION A - Received in fixative is one container labeled with the patient's name and designated sigmoid colon, long stitch - distal. The specimen consists of a segment of colon with attached pericolonic adipose tissue measuring 16 cm in length. Both resection margins are stapled. 6 cm away from the distal resection margin an area of stricture is noted. The serosal surface is inked black. The colon appears to be dilated proximal to the stricture. Corresponding to the area of stricture, a pedunculated congested polyp is noted in the mucosa measuring 1 cm in length. No additional mucosal lesion is identified. Sections of the other areas reveal a few diverticula. The bowel wall also shows thickening in the area of stricture. Also present in the container is a detached piece of bowel tissue with a staple on one side measuring 1.5 cm in length and 4 cm in diameter. The mucosa is congested in this area. No mucosal lesion is identified. Sections of pericolonic adipose tissue do not reveal any obviously enlarged lymph node. Manager Of Medical sections are submitted in 12 cassettes as follows: 1 - distal resection margin, 2??proximal resection margin, 3 - polyp, entirely submitted with underlying wall, 4-7 - area of stricture, 8?&?9 - diverticula, 10 - separately received segment of bowel wall, 11 & 12 - pericolonic adipose tissue. B - Received in fixative is one container labeled with the patient's name and designated rectal donut. The specimen consists of a donut-shaped piece of colonic tissue measuring 1 x 1 x 1.5 cm. The specimen is bisected and submitted entirely in one cassette. C - Received in fixative is one container labeled with the patient's name and designated sigmoid donut. The specimen consists of a strip of colonic tissue measuring 5 x 1 x 0.3 cm. Multiple sutures are noted. Manager Of Medical sections are submitted in one cassette. / MORELIA:ashleigh 10/10/2021 TC:5 CPT: 49413, 34208 x2
[2021-10-09] MEDS: Lactated Ringers 1,000 ML 40 ML IV (01:31)
[2021-10-09 03:18] LABS: Absolute Lymphocyte Count 2.09 X10^3/uL (0.83-4.51); Basophil# 0.04 X10^3/uL; Basophil% 0.5 % (0-1); Eosinophil# 0.06 X10^3/uL; Eosinophils% 0.7 % (0-5); Hematocrit 38.6 % (37-47); Hemoglobin 12.9 g/dL (12.0-15.0); Lymphocyte # 2.09 X10^3/ul (0.83-4.51); Lymphocyte % 24.6 % (19-41); Mean Corp Hgb Conc 33.4 g/dL (32-36); Mean Corpuscular Hgb 29.7 pg (27.0-32.0); Mean Corpuscular Volume 88.9 fL (81-99); Mean Platelet Vol. 10.4 fl (6.2-12.0); Monocyte# 1.25 X10^3/uL; Monocyte% 14.7 % (0-10); NRBC Flagged by Analyzer 0 % (0-5); Neutrophil # 4.99 X10^3/uL (2.7-7.7); Neutrophil % 58.7 % (47-70); Platelet Count 295 K/mm3 (150-450); RBC Distribution Width CV 13.9 % (11.6-14.6); RBC Distribution Width SD 45.1 fl (35.1-43.9); Red Blood Count 4.34 M/mm3 (4.2-5.4); White Blood Count 8.5 K/mm3 (4.4-11.0)
[2021-10-09 03:44] LABS: Anion Gap 7 (5-15); BUN 8 mg/dL (7-18); BUN/Creat Ratio 13.4 RATIO (10-20); Calcium,Total 8.2 mg/dL (8.5-10.1); Chloride 105 mmol/L (98-107); EST Glomerular Filtration Rate 107 mL/min (>60); Est Glom Filt Rate - Afr Amer 130 mL/min (>60); Estimated Creatinine Clearance 97.69 ml/min; Glucose 102 mg/dL (74-106); Potassium 3.1 mmol/L (3.5-5.1); Sodium Level 138 mmol/L (136-145)
[2021-10-09] MEDS: Ciprofloxacin 400 MG/200 ML BAG 200 MG IV (06:00)
[2021-10-09] MEDS: metroNIDAZOLE 500 MG/100 ML BAG 100 MG IV (07:56)
[2021-10-09] MEDS: BUPIVACAINE LIPOSOME/PF 20 ML VIAL OPERA.SITE (08:30)
[2021-10-09] MEDS: 0.9% Normal Saline (Pres. free 10 ML Vial (08:30)
[2021-10-09] MEDS: Bupivacaine 0.25% 30 ML Vial (08:30)
--- NOTE | 2021-10-09 12:05 | PCM.CONS.U ---
HPI Consult Data Date of Consult: 10/09/21 HPI Narrative HPI Narrative: KATIANA MIRANDA, is a 65 female who is having a bowel resection by general surgery and I was called in to see the patient while the patient was under a general anesthetic because of an injury to the ureter it appears that she had a thermal injury to the ureter 50% very high risk of stricture so again I have to proceed with a reconstruction of the ureter. This was on the left side [facility] Medical History Abnormal CT scan, colon Anxiety Depression Diverticulitis Hypertension Hypothyroidism Migraines Home Medications fluoxetine 40 mg PO DAILY 09/29/21 [History Last Taken Unknown] hydrochlorothiazide 25 mg PO DAILY 09/29/21 [History Last Taken Unknown] levothyroxine 125 mcg PO DAILY 09/29/21 [History Last Taken 10/08/21 09:30] omeprazole 20 mg PO DAILY #30 capsule 09/29/21 [Rx Last Taken Unknown] ondansetron 4 mg PO Q8H PRN PRN #10 tab 09/29/21 [Rx Last Taken Unknown] losartan 25 mg PO DAILY 10/08/21 [History Last Taken Unknown] Allergy/AdvReac Type Severity Reaction Status Date / Time lisinopril Allergy Other Verified 10/08/21 13:00 Penicillins Allergy Anaphylaxis Verified 10/08/21 11:49 Social History Smoking Status: Former smoker Lab / Micro Data Result Diagrams: 10/09/21 02:32 10/09/21 02:32 Labs: Laboratory Results - last 24 hr 10/08/21 12:18: WBC 12.8 H, RBC 4.95, Hgb 14.9, Hct 43.3, MCV 87.5, MCH 30.1, MCHC 34.4, RDW Std Deviation 44.4 H, RDW Coeff of Marlee 14.0, Plt Count 341, MPV 10.0, Immature Gran % (Auto) 1.300 H, Neut % (Auto) 68.1, Lymph % (Auto) 19.2, [place] % (Auto) 10.9 H, Eos % (Auto) 0.2, Baso % (Auto) 0.3, Absolute Neuts (auto) 8.7 H, Absolute Lymphs (auto) 2.46, Nucleated RBC % 0 10/08/21 12:18: Sodium 140, Potassium 3.2 L, Chloride 103, Carbon Dioxide 26.0, Anion Gap 11, BUN 9, Creatinine 0.88, Estim Creat Clear Calc 68.92, Est GFR (MDRD) Af Amer 83, Est GFR (MDRD) Non-Af 68, BUN/Creatinine Ratio 10.2, Glucose 105, Calcium 8.8, Total Bilirubin 0.50, Direct Bilirubin 0.14, AST 31, ALT 40, Alkaline Phosphatase 69, Total Protein 7.0, Albumin 3.8, Globulin 3.2, Prealbumin 21.3 10/08/21 12:35: PT 13.9, INR 1.1, APTT 30.3 10/09/21 02:32: WBC 8.5, RBC 4.34, Hgb 12.9, Hct 38.6, MCV 88.9, MCH 29.7, MCHC 33.4, RDW Std Deviation 45.1 H, RDW Coeff of Marlee 13.9, Plt Count 295, MPV 10.4, Immature Gran % (Auto) 0.800, Neut % (Auto) 58.7, Lymph % (Auto) 24.6, [place] % (Auto) 14.7 H, Eos % (Auto) 0.7, Baso % (Auto) 0.5, Absolute Neuts (auto) 5.0, Absolute Lymphs (auto) 2.09, Nucleated RBC % 0 10/09/21 02:32: Sodium 138, Potassium 3.1 L, Chloride 105, Carbon Dioxide 26.0, Anion Gap 7, BUN 8, Creatinine 0.60, Estim Creat Clear Calc 97.69, Est GFR (MDRD) Af Amer 130, Est GFR (MDRD) Non-Af 107, BUN/Creatinine Ratio 13.4, Glucose 102, Calcium 8.2 L Micro: Microbiology 10/08/21 12:35 Nasal Secretion SARS-CoV-2 Antigen (Rapid) - Final
--- NOTE | 2021-10-09 12:06 | PCM.OPRPT ---
Report of Operation Date of Procedure: 10/09/21 Pre-Operative Diagnosis: Left ureteral injury thermal injury mid ureter Post-Operative Diagnosis: Same Surgery/Procedure Performed:: Open repair of ureteral injury with a ureteroureterostomy, and left stent placement Description of Surgical Findings:: 65-year-old female who was in surgery having bowel resection done for obstruction of the sigmoid colon I was called in emergently to see the patient because during the dissection of the colon the left ureter was injured with a LigaSure and the injury was immediately recognized it was a 50% injury of the ureter with darkened injury of the ureter appeared to be a significant injury, I came in the patient was already asleep under general anesthetic the abdomen was opened retractors were in place the bowel had been retracted out of the pelvis and I could see the ureter and then see the injury at this point I discussed with the general surgery the options of management [address] a stent to see if possibly the ureter will heal it is very likely with this approach the patient would end up with a severe stricture in the ureter given the nature of the injury and the thermal injury the other option would be to do an excision of the injury site and a primary anastomosis of the 2 ureters to connect together patient had had prior extensive amount of abdominal surgery and if we just place a stent she did be a high risk that this would fail and would need another major operation to repair it so therefore after discussing the case with the general surgeon and myself I decided to proceed with a repair of the injured ureter with a primary anastomosis and excision of the segment that was injured. The 2 ends of the ureter had already been exposed to the injury site was seen and was crossing over the vessels fairly far away from the bladder I did not think a primary anastomosis from the ureter to the bladder would be an easy procedure plus the patient also needed to have an anastomosis of the colon a very complex procedure therefore I decided to do a primary anastomosis and would excise the damage section so using Platt scissors I transected and remove the damaged section I then this was only a very small section I then spatulated both the ends of the ureter opposite to each other to allow for anastomosis between the 2 ureters. I then placed my first stay stitch from the posterior aspect of the ureter to the posterior aspect of the healthy ureter bringing the 2 ends together we then used a Glidewire up the ureter and also advance a 6 Hebrew by 26 cm stent over the Glidewire then to place the distal aspect of the stent we backloaded the wire through one of the side holes in the stent and then advance pushed the stent down into the bladder. Once this was successfully done this did nicely aligned up the ureter with both sides with the spatulated side opposite to each other I then proceeded with anastomosing the ureters in interrupted fashion circumferentially all the way on the ureter took about five 4-0 Vicryl stitch to reanastomose the ureter and and. After the ureter was anastomosed together was very happy with the repair nice and open. Of note when I was excising the damaged ureter after cutting through the excision the damaged ureter I did have a hydronephrotic drip again consistent with development of a stricture from the thermal injury. After the anastomosis was completed I cut all the excessive suture the surgeons getting continue with the repair of the intestinal blockage and instructions were given to the surgeon to leave a drain around the site of the anastomosis and she will need not leave the stent in plan to leave the stent in for at least 6 weeks allow this heal completely. Certainly it is always possible that they could still scar down given the nature of the injury with a thermal injury but I thought it was a very good repair at the end. Surgeon: fernando Type of Anesthesia: General Drains: 6fr x 26cm stent Admit VTE Documentation VTE Present on Admission: No VTE Mechan Device Prophylaxis: SCD's VTE Pharm Prophylaxis ordered?: No
--- NOTE | 2021-10-09 13:09 | PCM.OPRPT ---
Report of Operation Date of Procedure: 10/09/21 Pre-Operative Diagnosis: Large bowel obstruction, sigmoid mass Post-Operative Diagnosis: Large bowel obstruction, sigmoid mass, injury to left ureter-repaired Surgery/Procedure Performed:: Laparoscopic converted to open sigmoidectomy, mobilization of splenic flexure, placement of VERENA drain, transversus abdominis plane block Description of Surgical Findings:: There was an inadvertent thermal injury to the left ureter. Please see Dr. Brooks's note for more detail on the left ureter primary repair. Surgeon: Karina Chacon Type of Anesthesia: General/Supplemental Anesthesiologist: Steve Zimmer Special Medications: Cipro 400 mg IV x1, Flagyl 500 mg IV x1 Specimen's removed: Sigmoid colon Estimated Blood Loss (mL): 150 cc Description of Procedure: Indications this is a 65-year-old female who initially presented with a large bowel obstruction due to a sigmoid mass/stricture. Patient was unable to be decompressed with colonoscopy. Laparoscopic sigmoidectomy possible open was elected. Description procedure: The patient was placed on operating table in low lithotomy position with appropriate padding. General Anesthesia was induced. Koenig catheter was placed. A timeout was completed verifying correct patient, procedure, site, position, social, and special equipment prior to beginning procedure. The rectum was irrigated with Betadine solution. The abdomen was prepped and draped in usual sterile fashion. An incision was made in the natural skin line above the umbilicus. The fascia was elevated and incised. The peritoneum was elevated and incised. Entry into the peritoneum was confirmed visually and no bowel was noted in the vicinity of the incision. Tee trocar was placed. The abdomen was insufflated with carbon dioxide to a pressure of 12-15 mmHg. Patient tolerated insufflation well. The laparoscope was then inserted and abdomen inspected. No injuries from initial trocar placement were noted. Additional trochars were then inserted in the following locations 5 mm trocar in the right lower quadrant and another in the lower midline. The abdomen was inspected there was noted to be distended small bowel and colon, which interferes with visualization. The table is placed in Trendelenburg position with the left side up. Tap block was done using 20 cc of Exparel, 50 cc of normal saline, 30 cc of Marcaine on lateral sides of the patient. The Eseal was used to mobilize the white line of Toldt up to the splenic flexure along with mobilization of splenic flexure. Due to the distended small bowel and colon decision was made to convert to a laparotomy. Midline incision was enlarged using 10 blade scalpel and electrocautery was used to deepen to the fascia. An extra-large wound protector was placed. In order for adequate visualization the distended gas/fluid filled small bowel was bought through the wound and covered with moist sponges-- intermittently replacing in abdominal cavity. The junction of the rectosigmoid colon was identified and was circumferential dissected. The contour stapler was used to divide the colon at the rectosigmoid junction. The sigmoid mesentery was divided using the Enseal. A high suture ligation of the DENEEN was done with 0 silk suture x2. The area of proximal sigmoid colon plan for the anastomosis appeared normal/viable and divided with the JO stapler. The sigmoid colon was handed off table and marked with long stitch distally and sent to pathology. A thermal injury to the left ureter was noticed immediately upon injury. Dr. Brooks was consulted Intra-Op. Please refer to 's note for repair of left ureter primarily over stent. The proximal sigmoid colon was cut using scissors, good blood supply to edges. 29 sizer fit easily in the colon. Anvil was sutured in place with 1 Prolene. The 29 EEA stapler was introduced to the rectum brought up to the staple line. Was opened and the anvil was attached after ensuring the mesentery was not twisted and there was no tension. The stapler was closed carefully making sure nothing was caught in the stapler. Stapler was fired and carefully removed. The proximal donut was thin/incomplete in 1 area and the distal donut was complete. Placed additional 3-0 silk sutures at the anastomosis. A leak test with air was completed prior to addition silk sutures and after--no evidence of a leak with either test. Abdominal cavity was irrigated with saline and suctioned. 15 Fr VERENA was placed in the LLQ near ureteral anastomosis and exiting the RLQ. Wound protector was removed and all gowns and gloves were changed. The midline incision fascia was closed with a running looped 1 PDS. All wounds were irrigated. Skin was closed skin jacque. 4 x 4 and tape were placed. Sponge and instrument counts were correct at the end of case; however 1 needle was not accounted for fluoroscopy was done to the patient's abdomen which did not show any foreign material consistent with a needle. The patient was extubated. The patient tolerated procedure well and was taken to the postanesthesia care unit in stable condition. Complications Inadvertent thermal injury to the left ureter
--- NOTE | 2021-10-09 13:30 | RAD_ITS ---
STUDY: X-RAY - ABDOMEN/PELVIS REASON FOR EXAM: Female, 65 years old. LOST NEEDLE IN OR TECHNIQUE: Single AP view of the abdomen / pelvis. COMPARISON: None. FINDINGS: No radiopaque foreign body is seen. A left-sided double-J stent catheter is present. RAD/Abdomen Single View IMPRESSION: No radiopaque foreign body is seen. Electronically Signed: North Lowe MD at 14:09 EST , Service support ,
--- NOTE | 2021-10-09 13:30 | CASEMGMT ---
RN CM NOTE: To room for initial RN CM assessment. Pt remains out of room. RN CM to attempt at a later time. Landen CUMMINGSN RN CM
[2021-10-09 16:08] LABS: Hematocrit 42.9 % (37-47); Hemoglobin 14.1 g/dL (12.0-15.0); Mean Corp Hgb Conc 32.9 g/dL (32-36); Mean Corpuscular Hgb 29.6 pg (27.0-32.0); Mean Corpuscular Volume 90.1 fL (81-99); Mean Platelet Vol. 10.6 fl (6.2-12.0); POSITIVE COUNT YES; Platelet Count 263 K/mm3 (150-450); RBC Distribution Width CV 14.1 % (11.6-14.6); RBC Distribution Width SD 47.2 fl (35.1-43.9); Red Blood Count 4.76 M/mm3 (4.2-5.4)
[2021-10-09 16:10] LABS: Anion Gap 8 (5-15); BUN 8 mg/dL (7-18); BUN/Creat Ratio 12.2 RATIO (10-20); Calcium,Total 7.5 mg/dL (8.5-10.1); Chloride 110 mmol/L (98-107); Creatinine, Serum 0.66 mg/dL (0.55-1.02); EST Glomerular Filtration Rate 96 mL/min (>60); Est Glom Filt Rate - Afr Amer 116 mL/min (>60); Estimated Creatinine Clearance 85.72 ml/min; Glucose 168 mg/dL (74-106); Potassium 3.8 mmol/L (3.5-5.1); Sodium Level 140 mmol/L (136-145)
[2021-10-09 16:37] LABS: Scan Indicated on CBC? Y/N YES- FLAGS NOTED; White Blood Count 45.1 K/mm3 (4.4-11.0)
[2021-10-09 16:38] LABS: Differential Comment SCANNED
[2021-10-09] MEDS: Lactated Ringers 1,000 ML 120 ML IV (17:02)
[2021-10-09] MEDS: Morphine 2 MG/ML Syringe IV (19:36)
[2021-10-09] MEDS: 0.9% Saline Lock 10 ML Syringe IV (19:37)
[2021-10-09] MEDS: Enoxaparin 40 MG/0.4 ML Syringe SC (21:52)
[2021-10-09] MEDS: Lactated Ringers 500 ML 999 ML IV (23:50)
[2021-10-10] VITALS (7 sets, daily range): BP systolic 123–149; BP diastolic 60–83; PULSE 86–96; RESP 16–18; TEMP 36.6–37.4; O2SAT 93–98
[2021-10-10] MEDS: Morphine 2 MG/ML Syringe IV ×5 (01:21→20:21)
[2021-10-10 04:23] LABS: Absolute Lymphocyte Count 2.04 X10^3/uL (0.83-4.51); Absolute Neutrophil Count 32.7 X10^3/uL (2.0-7.7); Basophil% 0.3 % (0-1); Hemoglobin 13.8 g/dL (12.0-15.0); Lymphocyte # 2.04 X10^3/ul (0.83-4.51); Lymphocyte % 5.3 % (19-41); Mean Corp Hgb Conc 33.7 g/dL (32-36); Mean Corpuscular Volume 89.1 fL (81-99); Mean Platelet Vol. 10.4 fl (6.2-12.0); Monocyte% 7.6 % (0-10); NRBC Flagged by Analyzer 0 % (0-5); Neutrophil # 32.71 X10^3/uL (2.7-7.7); Neutrophil % 85.5 % (47-70); POSITIVE COUNT YES; POSITIVE DIFFERENTIAL YES; Platelet Count 305 K/mm3 (150-450); RBC Distribution Width CV 14.4 % (11.6-14.6)
[2021-10-10 04:36] LABS: Differential Indicated SCAN CRITERIA MET; White Blood Count 38.3 K/mm3 (4.4-11.0)
[2021-10-10 04:45] LABS: Anion Gap 6 (5-15); BUN 8 mg/dL (7-18); BUN/Creat Ratio 14.7 RATIO (10-20); Calcium,Total 7.5 mg/dL (8.5-10.1); Chloride 108 mmol/L (98-107); Creatinine, Serum 0.54 mg/dL (0.55-1.02); EST Glomerular Filtration Rate 119 mL/min (>60); Est Glom Filt Rate - Afr Amer 144 mL/min (>60); Estimated Creatinine Clearance 104.77 ml/min; Glucose 124 mg/dL (74-106); Potassium 3.7 mmol/L (3.5-5.1); Sodium Level 139 mmol/L (136-145)
[2021-10-10 05:25] LABS: Differential Comment SCANNED
[2021-10-10] MEDS: Lactated Ringers 1,000 ML 120 ML IV ×2 (06:07→18:41)
--- NOTE | 2021-10-10 07:41 | PN.SURG_ITS ---
Subjective Subjective Patient's NG put about 300 out overnight. Patient states she is having flatus from her bottom but also burping/patient also had some stool out in OR/PACU. Patient's white blood cell count was 45 after surgery and this points down to 38. Patient did receive some Decadron to help with postoperative nausea and vomiting at time of surgery Objective Data Objective Data Vital Signs: Vital Signs Temp Pulse Resp BP Pulse Ox 98.5 F 95 18 128/80 H 94 10/10/21 06:23 10/10/21 06:23 10/10/21 06:23 10/10/21 06:23 10/10/21 06:23 Oxygen Flow Rate (L/min) 2 Oxygen Delivery Method Nasal Cannula Weight: 253 lb 15.983 oz Body Mass Index (BMI) 37.5 Intake & Output: Intake and Output for Last 24 Hours 10/08/21 10/09/21 10/10/21 23:59 23:59 23:59 Intake Total 420.75 / 660.75 5420.67 / 5420.67 1670 / 1670 Output Total 1330 / 1330 640 / 640 Balance 420.75 / 660.75 4090.67 / 4090.67 1030 / 1030 Lab / Micro Data Result Diagrams: 10/10/21 04:10 10/10/21 04:10 Labs: Laboratory Results - last 24 hr 10/09/21 15:41: WBC 45.1 H*, RBC 4.76, Hgb 14.1, Hct 42.9, MCV 90.1, MCH 29.6, MCHC 32.9, RDW Std Deviation 47.2 H, RDW Coeff of Marlee 14.1, Plt Count 263, MPV 10.6, Differential Comment SCANNED, Diff Path Review January10/09/21 15:41: Sodium 140, Potassium 3.8, Chloride 110 H, Carbon Dioxide 22.0, Anion Gap 8, BUN 8, Creatinine 0.66, Estim Creat Clear Calc 85.72, Est GFR (MDRD) Af Amer 116, Est GFR (MDRD) Non-Af 96, BUN/Creatinine Ratio 12.2, Glucose 168 H, Calcium 7.5 L 10/10/21 04:10: WBC 38.3 H*, RBC 4.60, Hgb 13.8, Hct 41.0, MCV 89.1, MCH 30.0, MCHC 33.7, RDW Std Deviation 46.0 H, RDW Coeff of Marlee 14.4, Plt Count 305, MPV 10.4, Immature Gran % (Auto) 1.300 H, Neut % (Auto) 85.5 H, Lymph % (Auto) 5.3 L , [place] % (Auto) 7.6, Eos % (Auto) 0.0, Baso % (Auto) 0.3, Absolute Neuts (auto) 32.7 H, Absolute Lymphs (auto) 2.04, Nucleated RBC % 0, Differential Comment SCANNED, Diff Path Review January foll 10/10/21 04:10: Sodium 139, Potassium 3.7, Chloride 108 H, Carbon Dioxide 25.0, Anion Gap 6, BUN 8, Creatinine 0.54 L, Estim Creat Clear Calc 104.77, Est GFR (MDRD) Af Amer 144, Est GFR (MDRD) Non-Af 119, BUN/Creatinine Ratio 14.7, Glucose 124 H, Calcium 7.5 L Micro: Microbiology 10/08/21 12:35 Nasal Secretion SARS-CoV-2 Antigen (Rapid) - Final Radiography Diagnostic Testing: Radiology Impression KUB X-Ray 10/09/21 13:30 IMPRESSION: No radiopaque foreign body is seen. Electronically Signed: North Lowe MD at 14:09 EST , Service support , Physical Exam Const oriented x3 and no apparent distress Resp normal respiratory effort Cardio regular rate GI GI Narrative: Abdomen: Soft, nondistended, tender near incision's dressed dry and intact with jacque, no peritoneal signs, VERENA drain serosanguineous Extremity no clubbing, cyanosis or edema Assessment & Plan Assessment/Plan (1) S/P colectomy: (2) Ureter injury: (3) Large bowel obstruction: PLAN: Postop day 1 status post open sigmoidectomy, repair of left ureter over a stent Continue n.p.o./IV fluids/NG. Patient is having flatus this is likely due to her previous large bowel obstruction as her small bowel and colon were distended with gas previous/during the case. Leukocytosis patient does have an extremely high white blood count 45 after surgery 38 this morning patient did get some Decadron for postoperative nausea and vomiting per anesthesia. Unsure if this is playing into it the blood count. Patient otherwise is doing well--not have any fevers vital signs are stable. We will continue to monitor-- no additional antibiotics at this time--will check lactic acid. Addendum: lactic acid wnl- 1.3 Okay to clamp NG encourage ambulating. VERENA and Koenig will stay in place until Dr. Brooks removes them Karina Chacon M.D. Pager: [phone] [facility] [address] [place] [address], [address] [place] [address] Office: [phone]
[2021-10-10] MEDS: Lactated Ringers 500 ML 999 ML IV (08:57)
[2021-10-10] MEDS: Enoxaparin 40 MG/0.4 ML Syringe SC (08:57)
[2021-10-10 10:58] LABS: Lactic Acid 1.3 mmol/L (0.4-1.9)
--- NOTE | 2021-10-10 13:15 | CASEMGMT ---
RN ALDAIR MEDICAL COMMUNICATION SPECIALIST CM to room to meet with patient for initial transition planning/care coordination assessment. RN ALDAIR introduced self and role at [facility]. Pt voices understanding and consents to assessment at this time. Pt resting in bed in no distress at this time. Pt is A/O at this time and answers all questions appropriately. Care providers, pharmacy, and demographics verified/updated at this time. PCP: Dr Raz [place] Specialists: Dr Husain--surgeon Preferred Pharmacy: [facility] Insurance: [employer], [employer]/Other Commercial Prescription Benefit: Yes Living Will/HPOA: Has both LW and HPOA, who is her , John Masterson LNOK: , John Masterson Living Arrangements: Lives w/ in one-story home w/1 small step to enter. Pt is independent and helps to take care of . Son lives nearby and assisting while pt in the hospital. Transportation: Pt states drives self and states no transportation concerns at this time. also drives some DME: Denies using any DME and denies needs. HHC/SNF: No hx of either. No needs identified. Pt wishes to return home and states has no concerns with going home at time of discharge. CM to follow for any discharge planning/needs. Pt voices no concerns/needs at this time. Advised pt to ask for CM if any questions/concerns/needs arise. Voices understanding. PLAN: Home Landen ZAPATA RN, CM
[2021-10-10] MEDS: BENZOCAINE/MENTHOL 1 LOZENGE MUCOUS MEM (13:24)
[2021-10-10] MEDS: 0.9% Saline Lock 10 ML Syringe IV (20:21)
[2021-10-11 03:00] VITALS: BP 153/62; PULSE 90; RESP 16; TEMP 36.9; O2SAT 94
[2021-10-11] MEDS: 0.9% Saline Lock 10 ML Syringe IV ×2 (03:04→20:09)
[2021-10-11] MEDS: Morphine 2 MG/ML Syringe IV (03:04)
[2021-10-11] MEDS: Lactated Ringers 1,000 ML 120 ML IV (03:04)
[2021-10-11 04:26] LABS: Absolute Lymphocyte Count 1.89 X10^3/uL (0.83-4.51); Absolute Neutrophil Count 18.1 X10^3/uL (2.0-7.7); Basophil# 0.04 X10^3/uL; Basophil% 0.2 % (0-1); Eosinophil# 0.08 X10^3/uL; Eosinophils% 0.4 % (0-5); Hematocrit 32.8 % (37-47); Hemoglobin 10.8 g/dL (12.0-15.0); Lymphocyte # 1.89 X10^3/ul (0.83-4.51); Lymphocyte % 8.4 % (19-41); Mean Corp Hgb Conc 32.9 g/dL (32-36); Mean Corpuscular Hgb 29.9 pg (27.0-32.0); Mean Corpuscular Volume 90.9 fL (81-99); Mean Platelet Vol. 11.3 fl (6.2-12.0); Monocyte# 2.37 X10^3/uL; Monocyte% 10.5 % (0-10); NRBC Flagged by Analyzer 0 % (0-5); Neutrophil # 18.08 X10^3/uL (2.7-7.7); Neutrophil % 79.8 % (47-70); POSITIVE DIFFERENTIAL YES; Platelet Count 245 K/mm3 (150-450); RBC Distribution Width CV 14.4 % (11.6-14.6); RBC Distribution Width SD 47.7 fl (35.1-43.9); Red Blood Count 3.61 M/mm3 (4.2-5.4); White Blood Count 22.6 K/mm3 (4.4-11.0)
[2021-10-11 04:32] LABS: Differential Indicated SCAN CRITERIA MET
[2021-10-11 05:03] LABS: Anion Gap 6 (5-15); BUN 6 mg/dL (7-18); BUN/Creat Ratio 17.6 RATIO (10-20); Calcium,Total 7.3 mg/dL (8.5-10.1); Chloride 105 mmol/L (98-107); Creatinine, Serum 0.34 mg/dL (0.55-1.02); EST Glomerular Filtration Rate 204 mL/min (>60); Est Glom Filt Rate - Afr Amer 247 mL/min (>60); Estimated Creatinine Clearance 166.41 ml/min; Glucose 97 mg/dL (74-106); Potassium 2.9 mmol/L (3.5-5.1); Sodium Level 141 mmol/L (136-145)
[2021-10-11 05:09] LABS: Differential Comment SCANNED
--- NOTE | 2021-10-11 07:05 | PCM.PN.SRG ---
Subjective Subjective Patient had 400 out of the NG overnight. Patient still having flatus and did have some liquid stool last night as well. Potassium is 2.9, white blood count down to 22, patient was up to the chair but did not ambulate yesterday Objective Data Objective Data Vital Signs: Vital Signs Temp Pulse Resp BP Pulse Ox 98.5 F 90 16 153/62 H 94 10/11/21 03:00 10/11/21 03:00 10/11/21 03:00 10/11/21 03:00 10/11/21 03:00 Oxygen Flow Rate (L/min) 2 Oxygen Delivery Method Room Air Weight: 253 lb 15.983 oz Body Mass Index (BMI) 37.5 Intake & Output: Intake and Output for Last 24 Hours 10/09/21 10/10/21 10/11/21 23:59 23:59 23:59 Intake Total 5420.67 / 5420.67 3500 / 3500 1150 / 1150 Output Total 1330 / 1330 1590 / 1840 1150 / 1150 Balance 4090.67 / 4090.67 1910 / 1660 0 / 0 Lab / Micro Data Result Diagrams: 10/11/21 03:37 10/11/21 03:37 Labs: Laboratory Results - last 24 hr 10/10/21 10:22: Lactic Acid 1.3 10/11/21 03:37: WBC 22.6 H, RBC 3.61 L, Hgb 10.8 L, Hct 32.8 L, MCV 90.9, MCH 29.9, MCHC 32.9, RDW Std Deviation 47.7 H, RDW Coeff of Marlee 14.4, Plt Count 245, MPV 11.3, Immature Gran % (Auto) 0.700, Neut % (Auto) 79.8 H, Lymph % (Auto) 8.4 L, Dixon % (Auto) 10.5 H, Eos % (Auto) 0.4, Baso % (Auto) 0.2, Absolute Neuts (auto) 18.1 H, Absolute Lymphs (auto) 1.89, Nucleated RBC % 0, Differential Comment SCANNED, Diff Path Review January10/11/21 03:37: Sodium 141, Potassium 2.9 L, Chloride 105, Carbon Dioxide 30.0, Anion Gap 6, BUN 6 L, Creatinine 0.34 L, Estim Creat Clear Calc 166.41, Est GFR (MDRD) Af Amer 247, Est GFR (MDRD) Non-Af 204, BUN/Creatinine Ratio 17.6, Glucose 97, Calcium 7.3 L Micro: Microbiology 10/08/21 12:35 Nasal Secretion SARS-CoV-2 Antigen (Rapid) - Final Physical Exam Const oriented x3 and no apparent distress Resp normal respiratory effort Cardio regular rate GI GI Narrative: Abdomen: Soft, nondistended, tender near incision's dressed dry and intact with jacque, no peritoneal signs, VERENA drain serosanguineous Extremity no clubbing, cyanosis or edema Assessment & Plan Assessment/Plan (1) S/P colectomy: (2) Ureter injury: (3) Large bowel obstruction: PLAN: Postop day 2 status post open sigmoidectomy, repair of left ureter over a stent Continue n.p.o./IV fluids/NG. Patient is having flatus/also had some liquid stool ---this is likely due to her previous large bowel obstruction as her small bowel and colon were distended with gas previous/during the case. Leukocytosis down to 22 Hypokalemia?2.9 we will give 40 KCl IV as well as 40 KCl liquid down the NG. Okay to clamp NG encourage ambulating. VERENA and Koenig will stay in place until Dr. Brooks removes them Karina Chacon M.D. Pager: [phone] [facility] [address] [place] [address], Outpatient Pavilion, [address] [place] [address] Office: [phone]
[2021-10-11 07:48] VITALS: O2SAT 90
[2021-10-11 09:00] VITALS: BP 154/76; PULSE 89; RESP 16; TEMP 36.6; O2SAT 93
[2021-10-11] MEDS: Potassium Chloride Oral Soln 20 MEQ/15 ML UDC 40 MEQ PO (09:54)
[2021-10-11] MEDS: Enoxaparin 40 MG/0.4 ML Syringe SC (09:57)
[2021-10-11] MEDS: Potassium Chloride 10mEq/100mL 10 MEQ/100 ML IV.SOLN. 100 MEQ IV BOLUS ×4 (10:23→13:49)
[2021-10-11] MEDS: Ketorolac 15 MG/ML Vial IV ×2 (12:33→20:08)
[2021-10-11 13:51] VITALS: BP 145/72; PULSE 86; RESP 16; TEMP 36.6; O2SAT 93
[2021-10-11 16:02] VITALS: BP 133/55; PULSE 84; RESP 16; TEMP 37; O2SAT 95
[2021-10-11] MEDS: Lactated Ringers 1,000 ML 75 ML IV (16:06)
--- NOTE | 2021-10-11 18:21 | NURSING ---
ng to suction for 20 minutes drained [address] green [address] Deleon notified ordered ng removed, ng removed as per ordered allowed sips & chips until am
[2021-10-11 19:53] VITALS: BP 134/77; PULSE 87; RESP 15; TEMP 37; O2SAT 94
[2021-10-12] MEDS: Acetaminophen 325 MG Tablet 650 MG PO ×4 (01:15→21:15)
[2021-10-12 01:24] VITALS: BP 126/84; PULSE 87; RESP 16; TEMP 36.6; O2SAT 98
[2021-10-12] MEDS: Lactated Ringers 1,000 ML 75 ML IV (04:15)
[2021-10-12 05:11] LABS: Absolute Lymphocyte Count 1.77 X10^3/uL (0.83-4.51); Absolute Neutrophil Count 10.7 X10^3/uL (2.0-7.7); Basophil# 0.03 X10^3/uL; Basophil% 0.2 % (0-1); Eosinophil# 0.22 X10^3/uL; Eosinophils% 1.6 % (0-5); Hematocrit 31.9 % (37-47); Hemoglobin 10.3 g/dL (12.0-15.0); Lymphocyte # 1.77 X10^3/ul (0.83-4.51); Lymphocyte % 12.7 % (19-41); Mean Corp Hgb Conc 32.3 g/dL (32-36); Mean Corpuscular Hgb 29.3 pg (27.0-32.0); Mean Corpuscular Volume 90.6 fL (81-99); Mean Platelet Vol. 10.9 fl (6.2-12.0); Monocyte# 1.11 X10^3/uL; NRBC Flagged by Analyzer 0 % (0-5); Neutrophil # 10.74 X10^3/uL (2.7-7.7); Neutrophil % 76.9 % (47-70); Platelet Count 245 K/mm3 (150-450); RBC Distribution Width CV 14.3 % (11.6-14.6); Red Blood Count 3.52 M/mm3 (4.2-5.4)
[2021-10-12 05:24] LABS: Anion Gap 8 (5-15); BUN 5 mg/dL (7-18); BUN/Creat Ratio 25.4 RATIO (10-20); Calcium,Total 7.5 mg/dL (8.5-10.1); Chloride 102 mmol/L (98-107); EST Glomerular Filtration Rate 384 mL/min (>60); Est Glom Filt Rate - Afr Amer 465 mL/min (>60); Estimated Creatinine Clearance 282.89 ml/min; Glucose 84 mg/dL (74-106); Potassium 2.9 mmol/L (3.5-5.1); Sodium Level 139 mmol/L (136-145)
[2021-10-12 07:48] VITALS: BP 132/60; PULSE 70; RESP 18; TEMP 36.4
--- NOTE | 2021-10-12 07:48 | RAD_ITS ---
STUDY: X-RAY - ABDOMEN/PELVIS REASON FOR EXAM: Female, 65 years old. History of ileus TECHNIQUE: Single AP view of the abdomen / pelvis. COMPARISON: 10/09/2021. FINDINGS: Left-sided double J stent catheter is again seen. Drainage catheter and the right-sided the pelvis. Surgical clips in the right lower quadrant and right pelvic region. Nonspecific gas pattern. The gas pattern is nonobstructive at this time. Stable soft tissues and osseous structures. RAD/Abdomen Single View (Portable) IMPRESSION: Nonspecific gas pattern. Electronically Signed: Frandy Crump, at 11:47 EST Tel , Service support ,
--- NOTE | 2021-10-12 07:57 | PN.SURG_ITS ---
Subjective Subjective Patient was able to have the NG removed yesterday as after 6-hour clamp only had 40 cc amount. Patient states she is only occasionally burping is having flatus and stool. VERENA still serosanguineous good urine output will decrease IV fluids Objective Data Objective Data Vital Signs: Vital Signs Temp Pulse Resp BP Pulse Ox 97.6 F L 70 18 132/60 H 98 10/12/21 07:48 10/12/21 07:48 10/12/21 07:48 10/12/21 07:48 10/12/21 01:24 Oxygen Flow Rate (L/min) 2 Oxygen Delivery Method Room Air Weight: 253 lb 15.983 oz Body Mass Index (BMI) 37.5 Intake & Output: Intake and Output for Last 24 Hours 10/10/21 10/11/21 10/12/21 23:59 23:59 23:59 Intake Total 3500 / 3500 2516 / 2516 911.25 / 911.25 Output Total 1590 / 1840 3630 / 3630 1800 / 1800 Balance 1910 / 1660 -1114 / -1114 -888.75 / -888.75 Lab / Micro Data Result Diagrams: 10/12/21 04:34 10/12/21 04:34 Labs: Laboratory Results - last 24 hr 10/12/21 04:34: WBC 14.0 H, RBC 3.52 L, Hgb 10.3 L, Hct 31.9 L, MCV 90.6, MCH 29.3, MCHC 32.3, RDW Std Deviation 47.0 H, RDW Coeff of Marlee 14.3, Plt Count 245, MPV 10.9, Immature Gran % (Auto) 0.600, Neut % (Auto) 76.9 H, Lymph % (Auto) 12.7 L, [place] % (Auto) 8.0, Eos % (Auto) 1.6, Baso % (Auto) 0.2, Absolute Neuts (auto) 10.7 H, Absolute Lymphs (auto) 1.77, Nucleated RBC % 0 10/12/21 04:34: Sodium 139, Potassium 2.9 L, Chloride 102, Carbon Dioxide 29.0, Anion Gap 8, BUN 5 L, Creatinine 0.20 L, Estim Creat Clear Calc 282.89, Est GFR (MDRD) Af Amer 465, Est GFR (MDRD) Non-Af 384, BUN/Creatinine Ratio 25.4 H, Glucose 84, Calcium 7.5 L Micro: Microbiology 10/08/21 12:35 Nasal Secretion SARS-CoV-2 Antigen (Rapid) - Final Physical Exam Const oriented x3 and no apparent distress Resp normal respiratory effort Cardio regular rate GI GI Narrative: Abdomen: Soft, nondistended, tender near incision's dressed dry and intact with jacque, no peritoneal signs, VERENA drain serosanguineous Extremity no clubbing, cyanosis or edema Assessment & Plan Assessment/Plan (1) S/P colectomy: (2) Ureter injury: (3) Large bowel obstruction: PLAN: Postop day 3 status post open sigmoidectomy, repair of left ureter over a stent We will try clears some today. Also check a KUB as difficult to tell if patient still has an ileus as she has been having bowel function ever since surgery but also has been having some burping-which has improved. Leukocytosis down to 14 Hypokalemia?2.9 we will give 40 KCl IV as well as 40 KCl PO x1 and recheck at 6PM---likely low due to diarrhea/hx of large bowel obstruction Out of bed and ambulation VERENA and Koenig will stay in place until Dr. Brooks removes them Karina Chacon M.D. Pager: [phone] [facility] [address] [place] [address], Outpatient Pavilion, [address] [place] [address] Office: [phone]
[2021-10-12 08:00] VITALS: O2SAT 96
[2021-10-12] MEDS: Potassium Chloride Oral Soln 20 MEQ/15 ML UDC 40 MEQ PO (09:45)
[2021-10-12] MEDS: Enoxaparin 40 MG/0.4 ML Syringe SC (09:46)
[2021-10-12] MEDS: FLUoxetine 20 MG Capsule 40 MG PO (09:46)
[2021-10-12] MEDS: Potassium Chloride 10mEq/100mL 10 MEQ/100 ML IV.SOLN. 100 MEQ IV BOLUS (10:00)
[2021-10-12] MEDS: Potassium Chloride 10mEq/100mL 10 MEQ/100 ML IV.SOLN. 60 MEQ IV BOLUS ×3 (11:19→14:46)
[2021-10-12 18:38] LABS: Potassium 3.3 mmol/L (3.5-5.1)
[2021-10-12] MEDS: Potassium Chloride Oral Tablet 20 MEQ 60 MEQ PO (21:03)
[2021-10-12] MEDS: Lactated Ringers 1,000 ML 40 ML IV (21:04)
[2021-10-12 21:23] VITALS: BP 144/72; PULSE 83; RESP 17; TEMP 36.8; O2SAT 95
[2021-10-13] MEDS: Ketorolac 15 MG/ML Vial IV (01:18)
[2021-10-13 03:40] VITALS: BP 115/79; PULSE 78; RESP 16; TEMP 36.4; O2SAT 93
[2021-10-13 05:04] LABS: Absolute Lymphocyte Count 1.63 X10^3/uL (0.83-4.51); Absolute Neutrophil Count 8.2 X10^3/uL (2.0-7.7); Basophil# 0.04 X10^3/uL; Basophil% 0.4 % (0-1); Eosinophil# 0.23 X10^3/uL; Hematocrit 33.4 % (37-47); Hemoglobin 10.9 g/dL (12.0-15.0); Lymphocyte # 1.63 X10^3/ul (0.83-4.51); Lymphocyte % 14.5 % (19-41); Mean Corp Hgb Conc 32.6 g/dL (32-36); Mean Corpuscular Hgb 29.3 pg (27.0-32.0); Mean Corpuscular Volume 89.8 fL (81-99); Monocyte# 1.08 X10^3/uL; Monocyte% 9.6 % (0-10); NRBC Flagged by Analyzer 0 % (0-5); Neutrophil # 8.23 X10^3/uL (2.7-7.7); Neutrophil % 73.1 % (47-70); Platelet Count 292 K/mm3 (150-450); RBC Distribution Width CV 14.1 % (11.6-14.6); RBC Distribution Width SD 45.9 fl (35.1-43.9); Red Blood Count 3.72 M/mm3 (4.2-5.4); White Blood Count 11.3 K/mm3 (4.4-11.0)
[2021-10-13] MEDS: Levothyroxine 125 MCG Tablet PO (05:22)
[2021-10-13 05:33] LABS: Anion Gap 6 (5-15); BUN 4 mg/dL (7-18); BUN/Creat Ratio 12.5 RATIO (10-20); Calcium,Total 7.8 mg/dL (8.5-10.1); Chloride 106 mmol/L (98-107); Creatinine, Serum 0.32 mg/dL (0.55-1.02); EST Glomerular Filtration Rate 219 mL/min (>60); Est Glom Filt Rate - Afr Amer 265 mL/min (>60); Estimated Creatinine Clearance 176.81 ml/min; Glucose 97 mg/dL (74-106); Potassium 3.7 mmol/L (3.5-5.1); Sodium Level 139 mmol/L (136-145)
[2021-10-13 07:58] VITALS: BP 150/84; PULSE 75; RESP 18; TEMP 36.9; O2SAT 98
--- NOTE | 2021-10-13 09:04 | PN.URO_ITS ---
Subjective Subjective 65-year-old female who underwent resection of a bowel obstruction during the surgery left ureter was injured and I came in and did a repair of the injury but with her primary ureteral to ureteral anastomosis. She fortunately has recovered well from her surgery urine output is adequate. VERENA output is low. Her creatinine is normal and her white blood count is resolving. Today I met with the patient and explained the situation I talked to the patient about the options of management for the ureteral injury and why I chose a ureteral to ureteral anastomosis given her current critical situation. We discussed postop care and management she will need to go home with a catheter in and the VERENA drain and I will need to see her in a week to remove the catheter and then the following week after that to remove the VERENA drain she will need to have the stent in for about 6 weeks to allow the anastomosis to heal we discussed the very rare chance that the anastomosis could result in a stricture. All her questions were addr essed and she will need my office information to schedule an appointment next week. Call with questions Objective Data Objective Data Vital Signs: Vital Signs Temp Pulse Resp BP Pulse Ox 98.5 F 75 18 150/84 H 98 10/13/21 07:58 10/13/21 07:58 10/13/21 07:58 10/13/21 07:58 10/13/21 07:58 Oxygen Flow Rate (L/min) 2 Oxygen Delivery Method Room Air Weight: 115.212 kg Body Mass Index (BMI) 37.5 Intake & Output: Intake and Output for Last 24 Hours 10/11/21 10/12/21 10/13/21 23:59 23:59 23:59 Intake Total 2516 / 2516 2225.17 / 2225.17 800 / 800 Output Total 3630 / 3630 4230 / 4230 2450 / 2450 Balance -1114 / -1114 -2004.83 / -2004.83 -1650 / -1650 Lab / Micro Data Result Diagrams: 10/13/21 04:40 10/13/21 04:40 Labs: Laboratory Results - last 24 hr 10/12/21 18:00: Potassium 3.3 L 10/13/21 04:40: WBC 11.3 H, RBC 3.72 L, Hgb 10.9 L, Hct 33.4 L, MCV 89.8, MCH 29.3, MCHC 32.6, RDW Std Deviation 45.9 H, RDW Coeff of Marlee 14.1, Plt Count 292, MPV 10.0, Immature Gran % (Auto) 0.400, Neut % (Auto) 73.1 H, Lymph % (Auto) 14.5 L, [place] % (Auto) 9.6, Eos % (Auto) 2.0, Baso % (Auto) 0.4, Absolute Neuts (auto) 8.2 H, Absolute Lymphs (auto) 1.63, Nucleated RBC % 0 10/13/21 04:40: Sodium 139, Potassium 3.7, Chloride 106, Carbon Dioxide 27.0, Anion Gap 6, BUN 4 L, Creatinine 0.32 L, Estim Creat Clear Calc 176.81, Est GFR (MDRD) Af Amer 265, Est GFR (MDRD) Non-Af 219, BUN/Creatinine Ratio 12.5, Glucose 97, Calcium 7.8 L Micro: Microbiology 10/08/21 12:35 Nasal Secretion SARS-CoV-2 Antigen (Rapid) - Final Radiography Diagnostic Testing: Radiology Impression KUB X-Ray 10/12/21 07:48 IMPRESSION: Nonspecific gas pattern. Electronically Signed: Frandy Crump, at 11:47 EST Tel , Service support ,
--- NOTE | 2021-10-13 09:06 | PCM.DC ---
Discharge Instructions Activity Discharge Activity: May Not Drive (while taking narcotic pain medications.) Dressing / Incision Call your doctor if you observe: Fever of 101 or Higher Catheter: Koenig to leg bag and Koenig to large bag Drain: [place] Additional Dressing/Incision Instructions:: VERENA drain, drain and record daily Follow Up Care Please Follow Up With: Abbe Brooks MD When: Call [phone] for an appointment Test Results: Test results from this visit will be discussed in further detail at your follow-up appointment, if applicable. Discharge Plan Admission Admit Date/Time: 10/08/21 16:10 Attending Provider: Karina Chacon Primary Care Provider: aRz Washington Consulting Providers: Abbe Brooks Discharge Orders/Prescriptions Prescriptions: No Action fluoxetine 40 mg capsule 40 mg PO DAILY RF: 0 levothyroxine 125 mcg tablet 125 mcg PO DAILY RF: 0 hydrochlorothiazide 25 mg tablet 25 mg PO DAILY RF: 0 omeprazole [omeprazole] 20 MG capsule 20 mg PO DAILY Qty: 30 RF: 0 ondansetron [ondansetron] 4 MG tablet 4 mg PO Q8H PRN PRN (Reason: Nausea) Qty: 10 RF: 0 losartan 25 mg Tablet 25 mg PO DAILY RF: 0
--- NOTE | 2021-10-13 09:49 | PN.SURG_ITS ---
Subjective Subjective Patient tolerating full liquids. Still having flatus and bowel movements. Patient is ambulating. Objective Data Objective Data Vital Signs: Vital Signs Temp Pulse Resp BP Pulse Ox 98.5 F 75 18 150/84 H 98 10/13/21 07:58 10/13/21 07:58 10/13/21 07:58 10/13/21 07:58 10/13/21 07:58 Oxygen Flow Rate (L/min) 2 Oxygen Delivery Method Room Air Weight: 253 lb 15.983 oz Body Mass Index (BMI) 37.5 Intake & Output: Intake and Output for Last 24 Hours 10/11/21 10/12/21 10/13/21 23:59 23:59 23:59 Intake Total 2516 / 2516 2225.17 / 2225.17 800 / 800 Output Total 3630 / 3630 4230 / 4230 2450 / 2450 Balance -1114 / -1114 -2003.83 / -2003.83 -0 / -165 Lab / Micro Data Result Diagrams: 10/13/21 04:40 10/13/21 04:40 Labs: Laboratory Results - last 24 hr 10/12/21 18:00: Potassium 3.3 L 10/13/21 04:40: WBC 11.3 H, RBC 3.72 L, Hgb 10.9 L, Hct 33.4 L, MCV 89.8, MCH 29.3, MCHC 32.6, RDW Std Deviation 45.9 H, RDW Coeff of Marlee 14.1, Plt Count 292, MPV 10.0, Immature Gran % (Auto) 0.400, Neut % (Auto) 73.1 H, Lymph % (Auto) 14.5 L, [place] % (Auto) 9.6, Eos % (Auto) 2.0, Baso % (Auto) 0.4, Absolute Neuts (auto) 8.2 H, Absolute Lymphs (auto) 1.63, Nucleated RBC % 0 10/13/21 04:40: Sodium 139, Potassium 3.7, Chloride 106, Carbon Dioxide 27.0, Anion Gap 6, BUN 4 L, Creatinine 0.32 L, Estim Creat Clear Calc 176.81, Est GFR (MDRD) Af Amer 265, Est GFR (MDRD) Non-Af 219, BUN/Creatinine Ratio 12.5, Gluco se 97, Calcium 7.8 L Micro: Microbiology 10/08/21 12:35 Nasal Secretion SARS-CoV-2 Antigen (Rapid) - Final Radiography Diagnostic Testing: Radiology Impression KUB X-Ray 10/12/21 07:48 IMPRESSION: Nonspecific gas pattern. Electronically Signed: Frandy Crump, at 11:47 EST Tel , Service support , Physical Exam Const oriented x3 and no apparent distress Resp normal respiratory effort Cardio regular rate GI GI Narrative: Abdomen: Soft, nondistended, tender near incision's dressed dry and intact with jacque, no peritoneal signs, VERENA drain serosanguineous Extremity no clubbing, cyanosis or edema Assessment & Plan Assessment/Plan (1) S/P colectomy: (2) Ureter injury: (3) Large bowel obstruction: PLAN: Postop day 4 status post open sigmoidectomy, repair of left ureter over a stent Patient is tolerating full's will have transitional diet for lunch if tolerates okay to DC home Leukocytosis down to 11.3--not been on any antibiotics except for during surgery Hypokalemia?resolved 3.7 did give additional 40 mg KCl p.o. today due to patient's diarrhea Continue ambulation VERENA and Koenig will stay in place until follow-up with Dr. Cecilia Chacon M.D. Pager: [phone] [facility] [address] [place] [address], [facility], [address] [place] [address] Office: [phone]
--- NOTE | 2021-10-13 10:02 | DCINST_ITS ---
Discharge Instructions Diet Discharge Diet: Light diet - advance as tolerated Activity Discharge Activity: May Not Drive (while taking narcotic pain medications.) May shower in (days): 1 Lifting Restrictions: no lifting >20 lbs x 2 wks, no strenuous exercise for 4 wks Dressing / Incision Call your doctor if your incision/area has: Continuous Slow Oozing, Sudden Increased Bleeding, Increased Pain/ Swelling, Increased Redness, Foul Smelling Discharge and Swelling at the incision site Call your doctor if you observe: Fever of 101 or Higher Remove Dressing in: 2 days Cleanse incision/area with: Soap & Water Catheter: Koenig to leg bag and Koenig to large bag Drain: [place] Additional Dressing/Incision Instructions:: VERENA drain, drain and record daily Follow Up Care Please Follow Up With: Karina Chacon MD When: Call the office for a follow-up appointment for 10/18/2021 for staple removal; after 5 PM and on the weekends call [phone] with any concerns. Test Results: Test results from this visit will be discussed in further detail at your follow-up appointment, if applicable. Discharge Plan Admission Admit Date/Time: 10/08/21 16:10 Attending Provider: Karina Chacon Primary Care Provider: Raz Washington Consulting Providers: Abbe Brooks Discharge Orders/Prescriptions Prescriptions: New acetaminophen [Tylenol] 325 mg Tablet 650 mg PO Q6H PRN PRN (Reason: PAIN 1-10) Qty: 0 RF: 0 Continued fluoxetine 40 mg capsule 40 mg PO DAILY RF: 0 levothyroxine 125 mcg tablet 125 mcg PO DAILY RF: 0 hydrochlorothiazide 25 mg tablet 25 mg PO DAILY RF: 0 omeprazole 20 MG capsule 20 mg PO DAILY Qty: 30 RF: 0 ondansetron 4 MG tablet 4 mg PO Q8H PRN PRN (Reason: Nausea) Qty: 10 RF: 0 losartan 25 mg Tablet 25 mg PO DAILY RF: 0 Referrals / Follow Up: Abbe Brooks MD [STAFF PHYSICIAN] - (Call [phone] for an appointment) Raz Washington MD [Primary Care Provider] - Karina Chacon MD [STAFF PHYSICIAN] - (Please call the office for follow-up for this Thursday10/18/2021 for staple removal) Disposition Disposition (needs filled in before D/C Order can be placed): Home, Self Care
[2021-10-13] MEDS: Enoxaparin 40 MG/0.4 ML Syringe SC (10:04)
[2021-10-13] MEDS: Pantoprazole Sodium 40 MG Tablet PO (10:05)
[2021-10-13] MEDS: FLUoxetine 20 MG Capsule 40 MG PO (10:05)
--- NOTE | 2021-10-13 10:09 | PCM.DC.SUM ---
Providers Date of Admission: 10/08/21 Primary Care Physician: Dr. Raz Washington MD Consultations 10/11/21 10:15 Consult: Urology Routine Consulting Provider: Abbe Brooks Reason for Consult: intra op consult--completed EMERGENT Consult: No MD Notified: Yes Date Notified: 10/09/21 Time Notified: 10:15 Method of Notification: Verbal Reason For Visit: large bowel obstruction Diagnosis Discharge Diagnosis (1) S/P colectomy: Status: Acute Code(s): Z90.49 - Acquired absence of other specified parts of digestive tract (2) Ureter injury: Status: Acute Code(s): S37.10XA - Unspecified injury of ureter, initial encounter (3) Large bowel obstruction: Status: Resolved Code(s): K56.609 - Unspecified intestinal obstruction, unspecified as to partial versus complete obstruction Medications at Discharge Home Medications fluoxetine 40 mg PO DAILY 09/29/21 hydrochlorothiazide 25 mg PO DAILY 09/29/21 levothyroxine 125 mcg PO DAILY 09/29/21 omeprazole 20 mg PO DAILY #30 capsule 09/29/21 ondansetron 4 mg PO Q8H PRN PRN #10 tab 09/29/21 losartan 25 mg PO DAILY 10/08/21 acetaminophen [Tylenol] 650 mg PO Q6H PRN PRN #0 tab 10/13/21 Hospital Course Operations colectomy (Open sigmoidectomy on 10/09/[address] Chacon, repair of left ureter by Dr. Brooks) Procedures Colonoscopy (Aborted due to stricture 10/08/[address] Gardiner) Summary of Care Provided Minutes Spent on Discharge: 15 Hospital Course: Patient was admitted to the hospital on 10/08/2021 after coming to the ER due to patient's known issue of a large bowel obstruction due to a mass/stricture at the sigmoid colon. Dr. Gardiner did attempt to do a colonoscopy to decompress the colon however he was unable to pass this sigmoid mass/stricture. Placement was taken to the OR on 10/09/2021 for laparoscopic converted to open sigmoidectomy due to the distended small bowel/colon. During the case there was an inadvertent injury to the left ureter. Dr. Brooks did come and repair the left ureter over a stent. And a VERENA was placed at the ureter anastomosis. Postoperatively patient did initially have an NG until she was having less burping than that was able to be removed. Patient was having bowel function flatus and liquid stool after the operation. By postop day 3 patient was able to be started on clears and tolerated advance to full's. Postop day 4 patient was placed on transitional and able to be DC home. Patient will be DC'd home with her VERENA per Dr. Brooks annual along with her Koenig. Patient follow-up with me on Thursday for staple removal. Patient states prior to coming into the hospital she was not taking her antihypertensives as she has lost weight due to not really being able to eat anything but liquids since the beginning of September. In the hospital patient was also not on her antihypertensives. Since 10/10/2021 patient did have systolic blood pressures 130s/140s and occasional diastolic in the 80s. Will have patient follow-up with PCP to addressed antihypertensives. Physical Exam Const oriented x3 and no apparent distress Resp normal respiratory effort Cardio regular rate GI GI Narrative: Abdomen: Soft, nondistended, tender near incision's dressed dry and intact with jacque, no peritoneal signs, VERENA drain serosanguineous Extremity no clubbing, cyanosis or edema Weight / BMI Weight Weight: 253 lb 15.983 oz Body Mass Index (BMI) 37.5 ABG / Lab / Microbiology Data Result Diagrams: 10/13/21 04:40 10/13/21 04:40 Laboratory: Laboratory Results - last 24 hr 10/12/21 18:00: Potassium 3.3 L 10/13/21 04:40: WBC 11.3 H, RBC 3.72 L, Hgb 10.9 L, Hct 33.4 L, MCV 89.8, MCH 29.3, MCHC 32.6, RDW Std Deviation 45.9 H, RDW Coeff of Marlee 14.1, Plt Count 292, MPV 10.0, Immature Gran % (Auto) 0.400, Neut % (Auto) 73.1 H, Lymph % (Auto) 14.5 L, [place] % (Auto) 9.6, Eos % (Auto) 2.0, Baso % (Auto) 0.4, Absolute Neuts (auto) 8.2 H, Absolute Lymphs (auto) 1.63, Nucleated RBC % 0 10/13/21 04:40: Sodium 139, Potassium 3.7, Chloride 106, Carbon Dioxide 27.0, Anion Gap 6, BUN 4 L, Creatinine 0.32 L, Estim Creat Clear Calc 176.81, Est GFR (MDRD) Af Amer 265, Est GFR (MDRD) Non-Af 219, BUN/Creatinine Ratio 12.5, Glucose 97, Calcium 7.8 L Microbiology: Microbiology 10/08/21 12:35 Nasal Secretion SARS-CoV-2 Antigen (Rapid) - Final Radiography Diagnostic Testing: Radiology Impression KUB X-Ray 10/12/21 07:48 IMPRESSION: Nonspecific gas pattern. Electronically Signed: Frandy Crump, at 11:47 EST Tel , Service support , D/C Instructions Discharge Diet: Light diet - advance as tolerated May shower in (days): 1 Call your doctor if your incision/area has: Continuous Slow Oozing, Sudden Increased Bleeding, Increased Pain/ Swelling, Increased Redness, Foul Smelling Discharge and Swelling at the incision site Call your doctor if you observe: Fever of 101 or Higher Cleanse incision/area with: Soap & Water Catheter: Koenig to leg bag and Koenig to large bag Drain: [place] Additional Dressing/Incision Instructions: VERENA drain, drain and record daily Please Follow Up With: Karina Chacon MD When: Call the office for a follow-up appointment for 10/18/2021 for staple removal; after 5 PM and on the weekends call [phone] with any concerns. Meaningful Use Info Meaningful Use Diagnoses (Choose all that apply): None applicable Discharge Plan Admission Admit Date/Time: 10/08/21 16:10 Attending Provider: Karina Chacon Primary Care Provider: Raz Washington Consulting Providers: Abbe Brooks Discharge Orders/Prescriptions Prescriptions: New acetaminophen [Tylenol] 325 mg Tablet 650 mg PO Q6H PRN PRN (Reason: PAIN 1-10) Qty: 0 RF: 0 Continued fluoxetine 40 mg capsule 40 mg PO DAILY RF: 0 levothyroxine 125 mcg tablet 125 mcg PO DAILY RF: 0 hydrochlorothiazide 25 mg tablet 25 mg PO DAILY RF: 0 omeprazole 20 MG capsule 20 mg PO DAILY Qty: 30 RF: 0 ondansetron 4 MG tablet 4 mg PO Q8H PRN PRN (Reason: Nausea) Qty: 10 RF: 0 losartan 25 mg Tablet 25 mg PO DAILY RF: 0 Referrals / Follow Up: Abbe Brooks MD [STAFF PHYSICIAN] - (Call [phone] for an appointment) Raz Washington MD [Primary Care Provider] - Karina Chacon MD [STAFF PHYSICIAN] - (Please call the office for follow-up for this Thursday10/18/2021 for staple removal) Disposition Disposition (needs filled in before D/C Order can be placed): Home, Self Care
[2021-10-13] MEDS: Potassium Chloride Oral Tablet 20 MEQ 40 MEQ PO (10:24)
[2021-10-13] MEDS: Acetaminophen 325 MG Tablet 650 MG PO (11:39)
[2021-10-13 14:00] VITALS: BP 128/63; PULSE 82; RESP 16; TEMP 37; O2SAT 98
[2021-10-14 09:10] LABS: Pathologist Review Reviewed
[2021-10-14 09:12] LABS: Pathologist Review Reviewed
[2021-10-14 09:25] LABS: Pathologist Review Reviewed
== END 2021-10-13 16:10 | disposition home or self-care (01) | DRG 331 ==
LOC: ED 12:31 → SDC 12:32 → ACINP 12:35 → SDC 16:26 → MS2 16:26
PROVIDERS: Internal Medicine Gastroenterology; Urology; Admitting Provider Surgery; Emergency Provider Emergency Medicine; PCP Family Medicine; Visit Provider Surgery
PROC: 0DJD8ZZ Inspection of Lower Intestinal Tract, Via Natural or Artificial Opening Endoscopic (ICD-10-PCS; CPT 45378; principal; 2021-10-08 15:30)
PROC: 0DTN0ZZ Resection of Sigmoid Colon, Open Approach (ICD-10-PCS; CPT 44204; principal; 2021-10-09 07:05)
PROC: 0TB70ZZ Excision of Left Ureter, Open Approach (ICD-10-PCS; 2021-10-09 07:05)
DX: K56.699 Other intestinal obstruction unspecified as to partial versus complete obstruction (principal); E03.9 Hypothyroidism, unspecified; I10 Essential (primary) hypertension; E87.6 Hypokalemia; F41.9 Anxiety disorder, unspecified; N99.81 Other intraoperative complications of genitourinary system; F32.A Depression, unspecified; Z87.891 Personal history of nicotine dependence; Z79.899 Other long term (current) drug therapy; Z79.890 Hormone replacement therapy; Y92.234 Operating room of hospital as the place of occurrence of the external cause
CPT/HCPCS: 36415; 74018; 74270; 76000; 80048; 80076; 83605; 84132; 84134; 85025; 85027; 85610; 85730; 87426; 88304; 88309; 93005; 99251; 99282; J7030; J7120; A4216; C1760; C2617; G0463; J0744; J2405; J3490

== ENCOUNTER 2021-10-18 09:25 | Outpatient (CLI) | payer MEDICARE, OTHER, SELFPAY ==
[2021-10-18 09:32] LABS: Mucous, Urine 0 SEEN /hpf (<or=2+); Squamous Epithelial Cells - UA 0 SEEN /hpf (5-10)
[2021-10-18 09:42] LABS: Color, Urine Yellow (Yellow); Glucose, Dipstick Normal (Normal); Ketone-Dipstick 5 mg/dl (Negative); Leukocyte Esterase-Dipstick 100 /ul (Negative); Nitrite-Dipstick Negative (Negative); Occult Blood-Urine 250 /ul (Negative); Protein-Dipstick 100 mg/dl (Negative); Specific Gravity, Urine 1.025 (1.002-1.030); Urine Bilirubin Dipstick Negative (Negative); Urine Clarity Turbid (Clear); Urine Urobilinogen Normal (Normal)
[2021-10-18 09:52] LABS: Amorphous Sediment 2+; Bacteria 2+ /hpf (None Seen); Red Blood Cells-Urine 25-50 SEEN /hpf (0-5); White Blood Cells 10-25 SEEN /hpf (0-5)
== END 2021-10-18 23:59 | disposition short-term general hospital (02) ==
LOC: LABSPEC 09:27
PROVIDERS: PCP Family Medicine; Referring Provider Surgery; Visit Provider Surgery
DX: R39.89 Other symptoms and signs involving the genitourinary system (principal)
CPT/HCPCS: 81001; 87086

== ENCOUNTER 2021-12-18 08:08 | Outpatient (CLI) | payer MEDICARE, OTHER, SELFPAY ==
--- NOTE | 2021-12-18 08:10 | BI_ITS ---
MAMMOGRAPHY - BILATERAL SCREENING REASON FOR EXAM: Female, 66 years old. Routine annual screening examination. PERTINENT HISTORY: Grandmother with breast cancer. TECHNIQUE: Digital bilateral breast herman (3D mammographic acquisition) in the CC and MLO projections. 2-D mediolateral oblique (MLO) and craniocaudad (CC) views of both breasts were obtained. CAD: Full Field Digital Mammography with Computer Added Detection was performed. COMPARISON: Comparison is made with prior examination dated 12/28/2017. FINDINGS: Breast Composition: There are scattered areas of fibroglandular density. There are no dominant masses or suspicious calcifications. Stable benign-appearing bilateral axillary lymph nodes. Stable 6.6 mm well-defined nodule in the deep upper outer aspect of the left breast most likely representing a small intramammary lymph node. Stable 3 mm well-defined nodule in the upper lateral aspect of the right breast. No other significant abnormalities are identified. There has been no significant change since the prior study. BI/SCRN MAMM (CAD)W/HERMAN BILAT IMPRESSION: Stable bilateral screening mammogram. Yearly follow-up mammogram recommended. (A) ASSESSMENT CATEGORY: BIRADS Category 2: Benign. A letter regarding these results will be sent to the patient by the facility within 30 days. Approximately 10% of breast cancers are not detected by mammography. A normal mammogram should not delay biopsy of a clinically suspicious abnormality. [id number] Electronically Signed: North Lowe MD at 11:14 EDT ,
== END 2021-12-18 23:59 | disposition home or self-care (01) ==
LOC: OPBI 08:08
PROVIDERS: PCP Family Medicine; Visit Provider Family Medicine
DX: Z12.31 Encounter for screening mammogram for malignant neoplasm of breast (principal); Z80.3 Family history of malignant neoplasm of breast
CPT/HCPCS: 77063; 77067

== ENCOUNTER 2022-02-19 07:16 | Day surgery (SDC) | payer MEDICARE, OTHER, SELFPAY ==
[2022-02-19] VITALS (7 sets, daily range): BP systolic 103–139; BP diastolic 44–80; PULSE 56–73; RESP 14–16; TEMP 36.1–36.7; O2SAT 95–99; BMI 33.5
[2022-02-19] MEDS: Lactated Ringers 1,000 ML 15 ML IV (07:33)
--- NOTE | 2022-02-19 08:15 | COLBX_PTH ---
PATIENT: KATIANA MIRANDA LOC: EN U#:[id number] AGE/SX: 66/F ROOM: RE02/19/[address]: Dr. Yannick Gardiner DO : 1955 BED: DIS: 02/19/2022 SPEC #: [id number] RECD: 02/19/22 12:56 STATUS: ANUJ RETerrence #: [id number] RAMONE: 02/19/22 08:[address]: Yannick Gardiner DEPT: SURGICAL PATHOLOGY RECD BY: Candace Hutchison ENTERED: 02/19/22 13:59 SP TYPE: COLON BX OTHR DR: Dr. Raz Washington MD Tissues: COLON BIOPSY Procedures: Surgery Specimen Level IV HEADER OPERATION: Colonoscopy with dilation, biopsy and [place] (MAC) PRE-OP DIAGNOSIS: Status post colectomy TISSUE SUBMITTED: Anastomosis biopsy at 20 cm MICROSCOPIC DIAGNOSIS Gastric anastomosis at 20 cm, biopsy: Ulceration with acute and chronic inflammation, fibrinopurulent material and granulation. Hyperplastic change. AM:ashleigh 02/20/2022 MICROSCOPIC DESCRIPTION Slides are reviewed. GROSS DESCRIPTION Received in fixative is one container labeled with the patient's name and designated anastomosis 20 cm. The specimen consists of multiple irregular fragments of light blum soft tissue that in aggregate measure 1 x 0.5 x 0.1 cm. The specimen is totally submitted in one cassette. / AM:ashleigh 02/19/2022 TC:2 CPT: 86502
--- NOTE | 2022-02-19 08:40 | HP.PCM_ITS ---
History and Physical Date of Admission: 02/19/22 KATIANA MIRANDA, is a 66 F who presents to the office today for Evaluation of large bowel obstruction. Katiana established with this clinic 10.08.[address] [facility] hospitalization. She presented to [facility] ED originally 09.29.[address] with abdominal pain[address] Following CT scan finding large bowel obstruction and biochemical workup she was discharged with instructions to follow up with Dr. Husain as an outpatient. Presented to [facility] ED again 10.08.21 following an unsuccessful colonoscopy for decompression. Gastroenterology consulted 10.08.21 for possible colonic stent placement and performed colonoscopy same day. She was discharged 10.13.21. Reports that since surgery she is doing well. 1-3 BM a day which continue to be soft and without straining. She is not currently taking medication for her bowels. Currently increased fiber through her diet and feels this is working well. Reports that ureter stent will be removed next week. CT abd/pel 09.29.21 found irregular circumferential wall thickening of mid sigmoid colon worrisome for colonic carcinoma and moderate dilation of colon proximal to suspected mass. Barium enema 10.08.21 found obstruction at sigmoid colon. Colonoscopy 10.08.21 finding stricture in sigmoid colon. Sigmoidectomy 10.09.[address] Chacon with complication of thermal inj ury to left ureter. Biopsy revealed diverticulosis of sigmoid colon with focal area of marked stricture formation with marked thickening of bowel wall, separate area found mucosal congestion and hemorrhage. Rectal donut had minute benign lymph node present. Sigmoid donut without pathologic diagnosis. Ureter repair 10.09.[address] Brooks. Ureter sustained thermal injury during sigmoidectomy. Stent placed to prevent stricture. ROS Const Constitutional: No fatigue, malaise, night sweats, weight change, sleep problems, abnormal sleep pattern or change in appetite ENT ENT: No difficulty swallowing, hoarseness or sore throat Cardio Cardiology: No chest pain at rest Gastro GI: No abdominal pain, belching, bloating, change in bowel habits, change in stool character, coffee ground emesis, constipation, cramping, diarrhea, heartburn, difficulty swallowing, feeling full early, excessive flatus, incontinent of stools, Vomiting blood/hematemesis, Blood in stool, loose stools, Black,tarry stools, nausea/dyspepsia, pain with swallowing or other Skin Skin: No yellowing of the eye or itchy eyes Neuro Neurology: No behavioral changes Psych Psychiatric: No abnormal sleep pattern, No behavioral changes, No change in appetite and No depression Endo Endocrine: No fatigue or weight change Aller/Imm Allergy/Immunologic: No itchy eyes Brant/Lymp Hematologic/Lymphatic: No easy bleeding or easy bruising Exam Const General: cooperative and comfortable Nutritional Appearance: average body habitus and well nourished HENTX Head: normal to inspection Ears: hearing grossly normal bilaterally Nose: external nose normal Face and sinus: normal facial exam Mouth: oral mucosae normal Throat: posterior oropharynx normal Eyes General: appearance normal, both eyes and all related structures Neck Neck: normal visual inspection Chest Chest palpation & inspection: normal inspection of the chest and normal palpation of entire chest wall Resp Effort & Inspection: normal respiratory effort Auscultation: Bilateral: Clear to Auscultation Cardio Palpation: normal PMI Rate: regular rate Rhythm: regular rhythm GI Inspection: normal to inspection Auscultation: normal bowel sounds Percussion: normal to percussion Palpation: no hepatosplenomegaly Skin General: no rashes or lesions noted Neuro General: patient alert Extrem General: normal to inspection Psych Affect: normal affect Quality Reporting Tobacco Screening ([facility] 138) Smoking Status: Former smoker Assessment and Plan Assessment and Plan (1) S/P colectomy: Status: Acute Comment: sigmoidectomy 10/09/21 Plan - Dr. Lanier Friend, DO: Undergo colonoscopy for evaluation of her total colonoscopy. She has never had a full colonoscopy only a sigmoidoscopy and double contrast barium enema. She was explained alternatives, risk, benefits including not withstanding bleeding, infection, sepsis, perforation, need for emergent surgery. She has been ASA 1. I have re-examined the patient. There are no clinical changes since date of exam.
--- NOTE | 2022-02-19 09:42 | OP.COLON_ITS ---
Patient Name: Joanne Issa Procedure Date: 02/19/2022 8:40 AM Date of : 1955 Age: 66 Procedure: Colonoscopy Indications: Screening for colorectal malignant neoplasm Providers: Yannick Gardiner DO Medicines: Monitored Anesthesia Care Patient Profile: This is a 66 year old female. Refer to note in patient chart for documentation of history and physical. Last Colonoscopy: none. The patient's first colonoscopy is today. Complications: No immediate complications. Procedure: Pre-Anesthesia Assessment: - Prior to the procedure, a History and Physical was performed, and patient medications and allergies were reviewed. The risks and benefits of the procedure and the sedation options and risks were discussed with the patient. All questions were answered and informed consent was obtained. Patient identification and proposed procedure were verified by the physician in the pre-procedure area. Mental Status Examination: alert and oriented. Airway Examination: normal oropharyngeal airway and neck mobility. Respiratory Examination: clear to auscultation. CV Examination: normal. Prophylactic Antibiotics: The patient does not require prophylactic antibiotics. Prior Anticoagulants: The patient has taken no previous anticoagulant or antiplatelet agents. ASA Grade Assessment: II - A patient with mild systemic disease. After reviewing the risks and benefits, the patient was deemed in satisfactory condition to undergo the procedure. The anesthesia plan was to use moderate sedation / analgesia (conscious sedation). Immediately prior to administration of medications, the patient was re-assessed for adequacy to receive sedatives. The heart rate, respiratory rate, oxygen saturations, blood pressure, adequacy of pulmonary ventilation, and response to care were monitored throughout the procedure. The physical status of the patient was re-assessed after the procedure. After I obtained informed consent, the scope was passed under direct vision. Throughout the procedure, the patient's blood pressure, pulse, and oxygen saturations were monitored continuously. The pediatric colonoscope was introduced through the anus and advanced to the cecum, identified by appendiceal orifice and ileocecal valve. The colonoscopy was performed without difficulty. The patient tolerated the procedure well. The quality of the bowel preparation was good. Scope In: 8:53:45 AM Scope Withdrawal Time 0 hours 22 minutes 11 seconds Scope Out: 9:31:23 AM Total Procedure Duration Time 0 hours 37 minutes 38 seconds Findings: The perianal and digital rectal examinations were normal. There was evidence of a prior end-to-side colo-colonic anastomosis in the recto-sigmoid colon. This was non-patent and was characterized by edema, erythema, friable mucosa and inflammation. The anastomosis was traversed after dilation. Biopsies were taken with a cold forceps for histology. Verification of patient identification for the specimen was done. Estimated blood loss was minimal. A TTS dilator was passed through the scope. Dilation with a 15 mm colonic balloon dilator was performed. The dilation site was examined following endoscope reinsertion and showed complete resolution of luminal narrowing. Estimated blood loss was minimal. Coagulation for hemostasis of bleeding caused by the procedure using argon plasma at 0.3 liters/minute and 20 whitfield was successful. Estimated blood loss was minimal. The exam was otherwise without abnormality on direct and retroflexion views. Impression: - Non-patent end-to-side colo-colonic anastomosis, characterized by edema, erythema, friable mucosa and inflammation. Biopsied. Dilated. Treated with argon plasma coagulation (APC). - The examination was otherwise normal on direct and retroflexion views. Recommendation: - Discharge patient to home. - Full liquid diet today. - No aspirin, ibuprofen, naproxen, or other non-steroidal anti-inflammatory drugs for 7 days. - Await pathology results. - Repeat colonoscopy in 5 years for surveillance based on pathology results. - Return to GI office. Procedure Code(s): --- Professional --- 05797, Colonoscopy, flexible; with transendoscopic balloon dilation 79821, Colonoscopy, flexible; with biopsy, single or multiple CPT copyright 2017 [employer]. All rights reserved. The codes documented in this report are preliminary and upon butadiene converter helper review may be revised to meet current compliance requirements. Yannick Gardiner DO 02/19/2022 9:41:40 AM This report has been signed electronically. Number of Addenda: 1 Note Initiated On: 02/19/2022 8:40 AM Addendum Number: 1 Addendum Date: 06/24/2022 6:33:10 AM MAC was used as sedation for this procedure. Yannick Gardiner DO 06/24/2022 6:33:14 AM This report has been signed electronically.
--- NOTE | 2022-02-19 09:42 | OP.CCLET_ITS ---
06/24/2022 Raz [place] Re : Colonoscopy procedure for Joanne Issa Dear Padmini This procedure was performed on Saturday, February 19, 2022. My impressions and recommendations are as follows: Impressions : - Non-patent end-to-side colo-colonic anastomosis, characterized by edema, erythema, friable mucosa and inflammation. Biopsied. Dilated. Treated with argon plasma coagulation (APC). - The examination was otherwise normal on direct and retroflexion views. Recommendations : - Discharge patient to home. - Full liquid diet today. - No aspirin, ibuprofen, naproxen, or other non-steroidal anti-inflammatory drugs for 7 days. - Await pathology results. - Repeat colonoscopy in 5 years for surveillance based on pathology results. - Return to GI office. My findings are described in the full procedure note, which is enclosed. If I can be of further assistance, please feel free to contact me at . Sincerely, Yannick Gardiner, 02/19/2022 9:41:40 AM This report has been signed electronically.
== END 2022-02-19 10:35 | disposition home or self-care (01) ==
LOC: EN 07:17 → AC 07:18
PROVIDERS: PCP Family Medicine; Referring Provider Family Medicine; Visit Provider Internal Medicine Gastroenterology
PROC: 0DJD8ZZ Inspection of Lower Intestinal Tract, Via Natural or Artificial Opening Endoscopic (ICD-10-PCS; CPT 45378; principal; 2022-02-19 08:10)
DX: Z12.11 Encounter for screening for malignant neoplasm of colon (principal); K91.89 Other postprocedural complications and disorders of digestive system; F41.9 Anxiety disorder, unspecified; F32.A Depression, unspecified; M19.90 Unspecified osteoarthritis, unspecified site; I10 Essential (primary) hypertension; E03.9 Hypothyroidism, unspecified; Z78.0 Asymptomatic menopausal state; G25.81 Restless legs syndrome; G43.909 Migraine, unspecified, not intractable, without status migrainosus; Z79.82 Long term (current) use of aspirin; Z79.899 Other long term (current) drug therapy; Z87.19 Personal history of other diseases of the digestive system; E07.9 Disorder of thyroid, unspecified; Z90.49 Acquired absence of other specified parts of digestive tract; Z87.891 Personal history of nicotine dependence; Z98.0 Intestinal bypass and anastomosis status
CPT/HCPCS: 45386; 45380; 88305; J7120; J2405

== ENCOUNTER → 2022-07-23 | Outpatient (CLI) | payer MEDICARE, OTHER, SELFPAY ==
[2022-07-23 12:56] LABS: Absolute Lymphocyte Count 1.98 X10^3/uL (0.83-4.51); Absolute Neutrophil Count 4.1 X10^3/uL (2.0-7.7); Basophil# 0.04 X10^3/uL; Basophil% 0.6 % (0-1); Eosinophils% 2.8 % (0-5); Hematocrit 41.7 % (37-47); Hemoglobin 13.6 g/dL (12.0-15.0); Lymphocyte # 1.98 X10^3/ul (0.83-4.51); Lymphocyte % 27.9 % (19-41); Mean Corp Hgb Conc 32.6 g/dL (32-36); Mean Corpuscular Volume 92.1 fL (81-99); Mean Platelet Vol. 11.3 fl (6.2-12.0); Monocyte# 0.77 X10^3/uL; Monocyte% 10.9 % (0-10); NRBC Flagged by Analyzer 0 % (0-5); Neutrophil # 4.07 X10^3/uL (2.7-7.7); Neutrophil % 57.4 % (47-70); Platelet Count 273 K/mm3 (150-450); RBC Distribution Width CV 13.5 % (11.6-14.6); RBC Distribution Width SD 45.6 fl (35.1-43.9); Red Blood Count 4.53 M/mm3 (4.2-5.4); White Blood Count 7.1 K/mm3 (4.4-11.0)
[2022-07-23 13:21] LABS: Anion Gap 7 (5-15); BUN 29 mg/dL (7-18); BUN/Creat Ratio 42.2 RATIO (10-20); Calcium,Total 9.1 mg/dL (8.5-10.1); Chloride 106 mmol/L (98-107); Creatinine, Serum 0.69 mg/dL (0.55-1.02); EST Glomerular Filtration Rate 91 mL/min (>60); Est Glom Filt Rate - Afr Amer 110 mL/min (>60); Glucose 106 mg/dL (74-106); Potassium 3.8 mmol/L (3.5-5.1); Sodium Level 141 mmol/L (136-145); Thyroid Stim Hormone (TSH) 1.19 uIU/mL (0.358-3.74)
== END | disposition home or self-care (01) ==
LOC: BFHLAB 08:55
PROVIDERS: PCP Family Medicine; Visit Provider Family Medicine
DX: I10 Essential (primary) hypertension (principal); E03.9 Hypothyroidism, unspecified
CPT/HCPCS: 36415; 80048; 84443; 85025

== ENCOUNTER → 2022-10-27 | Outpatient (CLI) | payer MEDICARE, OTHER, SELFPAY ==
--- NOTE | 2022-10-27 06:49 | CT_ITS ---
PROCEDURE: CT RIGHT KNEE WITHOUT CONTRAST REASON FOR EXAM: Female, 66 years old. Preoperative planning for the MakoPlasty Robotic knee surgery. Knee pain. TECHNIQUE: Transaxial CT of the hip, knee and ankle were obtained. Coronal and sagittal reconstruction images of the knee were provided. Individualized dose optimization techniques were used for this CT. COMPARISON: None. FINDINGS: Standard protocol for the preoperative planning for the MakoPlasty robotic knee surgery was performed. Moderate arthrosis of the right hip, severe tricompartmental arthrosis of the right knee and moderate arthrosis of the tibiotalar joint. CT/Extremity Lower without Contra IMPRESSION: Preoperative MakoPlasty Robotic knee surgical CT evaluation with findings as described above. Electronically Signed: Case Roman, at 13:27 EST ,
== END | disposition home or self-care (01) ==
PROVIDERS: PCP Family Medicine; Visit Provider Specialist
DX: M21.161 Varus deformity, not elsewhere classified, right knee (principal)
CPT/HCPCS: 73700

== ENCOUNTER → 2022-10-28 | Outpatient (CLI) | payer MEDICARE, OTHER, SELFPAY ==
--- NOTE | 2022-10-28 10:27 | EKG12_ITS ---
Test Reason : PRE-OP Blood Pressure : / mmHG Vent. Rate : 060 BPM Atrial Rate : 060 BPM P-R Int : 154 ms QRS Dur : 094 ms QT Int : 438 ms P-R-T Axes : -03 -25 044 degrees QTc Int : 438 ms Normal sinus rhythm with sinus arrhythmia Normal ECG Confirmed by SADIA DOWD, TRISTAN ([id number]), deputy editor in chief LUKE FABIAN ([id number]) on 10/29/2022 9:28:37 AM Referred By: FARHAD Confirmed By:TRISTAN MCCULLOUGH MD
[2022-10-28 11:22] LABS: Absolute Lymphocyte Count 2.69 X10^3/uL (0.83-4.51); Absolute Neutrophil Count 3.4 X10^3/uL (2.0-7.7); Basophil# 0.05 X10^3/uL; Basophil% 0.7 % (0-1); Eosinophil# 0.23 X10^3/uL; Eosinophils% 3.2 % (0-5); Hematocrit 42.5 % (37-47); Hemoglobin 13.9 g/dL (12.0-15.0); Lymphocyte # 2.69 X10^3/ul (0.83-4.51); Lymphocyte % 37.8 % (19-41); Mean Corp Hgb Conc 32.7 g/dL (32-36); Mean Corpuscular Hgb 29.6 pg (27.0-32.0); Mean Corpuscular Volume 90.4 fL (81-99); Mean Platelet Vol. 10.5 fl (6.2-12.0); Monocyte% 9.8 % (0-10); NRBC Flagged by Analyzer 0 % (0-5); Neutrophil # 3.43 X10^3/uL (2.7-7.7); Neutrophil % 48.2 % (47-70); Platelet Count 288 K/mm3 (150-450); RBC Distribution Width CV 13.3 % (11.6-14.6); RBC Distribution Width SD 43.8 fl (35.1-43.9); White Blood Count 7.1 K/mm3 (4.4-11.0)
[2022-10-28 12:29] LABS: Albumin, Serum 4.2 g/dL (3.2-5.0); Anion Gap 6 (5-15); BUN 19 mg/dL (7-18); BUN/Creat Ratio 23.9 RATIO (10-20); Calcium,Total 9.5 mg/dL (8.5-10.1); Chloride 104 mmol/L (98-107); EST Glomerular Filtration Rate 77 mL/min (>60); Est Glom Filt Rate - Afr Amer 93 mL/min (>60); Glucose 114 mg/dL (74-106); Potassium 3.7 mmol/L (3.5-5.1); Sodium Level 139 mmol/L (136-145)
== END | disposition home or self-care (01) ==
PROVIDERS: Physician Assistant Surgical; PCP Family Medicine; Visit Provider Specialist
DX: Z01.818 Encounter for other preprocedural examination (principal); E11.9 Type 2 diabetes mellitus without complications; Z01.810 Encounter for preprocedural cardiovascular examination
CPT/HCPCS: 36415; 80048; 82040; 85025; 93005

== ENCOUNTER → 2023-02-17 | Outpatient (CLI) | payer MEDICARE, OTHER, SELFPAY ==
--- NOTE | 2023-02-17 09:24 | BI_ITS ---
MAMMOGRAPHY - BILATERAL SCREENING REASON FOR EXAM: Female, 67 years old. Routine annual screening examination. PERTINENT HISTORY: Grandmother with breast cancer. TECHNIQUE: Digital bilateral breast herman (3D mammographic acquisition) in the CC and MLO projections. 2-D mediolateral oblique (MLO) and craniocaudad (CC) views of both breasts were obtained. CAD: Full Field Digital Mammography with Computer Added Detection was performed. COMPARISON: Comparison is made with prior study dated December 18, 2021. FINDINGS: Breast Composition: The breasts are almost entirely fatty. There are no dominant masses or suspicious calcifications. Stable small benign-appearing bilateral axillary lymph nodes. Stable 6.6 mm well-defined nodule in the deep upper outer aspect of the left breast most likely representing a small intramammary lymph node. No other significant abnormalities are identified. There has been no significant change since the prior study. BI/SCRN MAMM (CAD)W/HERMAN BILAT IMPRESSION: Stable bilateral screening mammogram. Yearly follow-up mammogram recommended. (A) ASSESSMENT CATEGORY: BIRADS Category 2: Benign. A letter regarding these results will be sent to the patient by the facility within 30 days. Approximately 10% of breast cancers are not detected by mammography. A normal mammogram should not delay biopsy of a clinically suspicious abnormality. [id number] Electronically Signed: North Lowe MD at 11:13 EDT ,
== END | disposition home or self-care (01) ==
LOC: OPBI 09:23
PROVIDERS: PCP Family Medicine; Referring Provider Family Medicine; Visit Provider Family Medicine
DX: Z12.31 Encounter for screening mammogram for malignant neoplasm of breast (principal)
CPT/HCPCS: 77063; 77067

== ENCOUNTER → 2023-03-06 | Outpatient (CLI) | payer MEDICARE, OTHER, SELFPAY | END | disposition home or self-care (01) | PROVIDERS: PCP Family Medicine; Visit Provider Specialist | DX: Z01.812 Encounter for preprocedural laboratory examination (principal) | CPT/HCPCS: 36415 ==

== ENCOUNTER 2023-03-23 14:30 | Outpatient (RCR) | payer MEDICARE, OTHER, SELFPAY ==
--- NOTE | 2023-02-24 10:11 | HP.PTEVAL_ITS ---
Patient's Visit Information KATIANA MIRANDA is a 67 year old F referred to Physical Therapy by Jr Ramirez PA-C with a diagnosis of R TKA 11/13/22, L knee OA. Date of Evaluation: 02/24/23 Physical Therapist: Duong Whelan, PT, ATC - Visit Plan Frequency: 2-3x /Week Duration: 4-6 Weeks Plan: Aquatic therapy consisting of B LE stretching and strengthening, core stab ex's, and HEP - Subjective DOS: 11/13/22. Pt reports she had a R TKA performed at time. Pt reports she had PT after her surgery and she is doing well now. Pt is scheduled to have L TKA on 05/14/23. Pt reports she is here for some aquatic therapy in hopes of further strengthening her L and R knees. Pt reports her L knee is pretty sore today. Pt notes she has had x-rays for her L knee and notes her knee is bone on bone. Pt reports she feels like she has been very sedentary and needs to improve her tolerance for work. Pt denies tingling or numbness in L knee. Pt reports she has difficulty with sit to stand after sitting for a prolonged period of time secondary to L knee pain. Pt reports no stairs at home. Pt reports occasional sleep difficulty secondary to pain. Pt reports she is very limited when it comes to prolonged ambulation. 1/10 at rest, 5/10 pain at worst. - Pain L knee Pain Intensity (Out of 10): 0 Pain Intensity Range: 5 - Objective Neuro: B LE sensation is WNL to light touch. B achilles reflex= 2/3. Girth at joint line: R knee 44 cm, L knee 46 cm. MMT: R knee flex= 25, ext= 53; L knee flex= 32, ext= 30 #F. ROM: R knee 0-7-105; L knee 0-17-115 degrees. Gait: Pt is able to ambulate 510 feet until needing to rest secondary to fatigue. - Balance/Special Test Scores Lower Extremity Functional Score: 48 - Goals Goal 1:: Decrease L knee pain x 50% to aid with sleep Goal Time Frame: 4-6 Weeks Goal 2:: Increase L knee strength x 10 #F to aid with stair negotiation Goal Time Frame: 4-6 Weeks Goal 3:: I with HEP Goal Time Frame: 4-6 Weeks Goal 4:: Pt will be able to ambulate 1000 feet until needing to rest secondary to pain Goal Time Frame: 4-6 Weeks - Rehabilitation Potential Physical Therapy Diagnosis: Pt has B knee pain, L knee weakness, and L knee limited ROM secondary to degenerative changes to L knee and R TKA Rehabilitation Potential: Good - Anticipated Interventions Patient/Client Instruction: Educate patient on: Condition, Plan of Care For the Purpose of:: To improve self management Therapeutic Exercise to Include: Strength training, Endurance training, Flexibilty training, In an aquatic setting, Active ROM, Dynamic Lumbar Stabilization For the Purpose of:: To decrease pain, To increase ROM, To improve muscle performance and motor function Thank you for the opportunity to evaluate your patient. For Medicare and Medicare HMO plans, please review the plan of care and approve it. It will need to be FAXED BACK to us at [phone] for Medicare purposes. For Medicare only, by signing this I certify the plan of care. Please let me know if there are questions or concerns regarding this plan of care. Physician Signature: Date:
--- NOTE | 2023-03-23 15:03 | HP.PTDCSUM ---
Discharge Summary D/C summary: It has been my pleasure to treat KATIANA MIRANDA referred by Jr Ramirez PA-C, with the diagnosis of R TKA 11/13/22, L knee OA for a total of 9 visit(s). Discharge Date: Please see the following information for a summary of their discharge status. Subjective Subjective: I feel like I have improved Pain L knee: Pain Intensity (Out of 10): 4 Overall Improvement % Improvement: 20 Objective Objective/Function: L knee pain ranges from 2-4/10 L knee MMT: flex= 39, ext= 50#F Gait: Pt is able to ambulate approximately 750 feet until needing to rest secondary to L hip pain Pt is I with HEP Goals Goal 1:: Decrease L knee pain x 50% to aid with sleep Goal Progress: Goal Met Goal 2:: Increase L knee strength x 10 #F to aid with stair negotiation Goal Progress: Goal Met Goal 3:: I with HEP Goal Progress: Goal Met Goal 4:: Pt will be able to ambulate 1000 feet until needing to rest secondary to pain Goal Progress: Progressing Plan Plan: Discontinue to I HEP D/C Information d/c sentence: If there are questions or concerns regarding this patient's physical therapy, please feel free to call me at [phone]. Thank you for the referral of this patient. Sincerely, Duong Whelan, PT, ATC Balance/Gait/Functional tests Balance/Special Test Scores Lower Extremity Functional Score: 49
== END 2023-03-23 15:08 | disposition home or self-care (01) ==
LOC: PT 14:30
PROVIDERS: PCP Family Medicine; Visit Provider Physician Assistant Surgical
DX: M17.11 Unilateral primary osteoarthritis, right knee (principal); M17.12 Unilateral primary osteoarthritis, left knee; Z96.651 Presence of right artificial knee joint
CPT/HCPCS: 97113; 97161; 97164

== ENCOUNTER → 2023-04-21 | Outpatient (CLI) | payer MEDICARE, OTHER, SELFPAY ==
--- NOTE | 2023-04-21 10:45 | EKG12_ITS ---
Test Reason : PREOP Blood Pressure : / mmHG Vent. Rate : 066 BPM Atrial Rate : 066 BPM P-R Int : 152 ms QRS Dur : 084 ms QT Int : 424 ms P-R-T Axes : 032 -25 046 degrees QTc Int : 444 ms Sinus rhythm with occasional Premature ventricular complexes Nonspecific ST and T wave abnormality Abnormal ECG When compared with ECG of 28-OCT-2022 10:30, Premature ventricular complexes are now Present Confirmed by SADIA DOWD, TRISTAN ([id number]), editor greeting card LUKE FABIAN ([id number]) on 04/21/2023 2:11:27 PM Referred By: Noman Carlos Confirmed By:TRISTAN MCCULLOUGH MD
--- NOTE | 2023-04-21 10:47 | CT_ITS ---
PROCEDURE: CT LEFT KNEE WITHOUT CONTRAST REASON FOR EXAM: Female, 67 years old. Preoperative planning for the MakoPlasty Robotic knee surgery. Knee pain. TECHNIQUE: Transaxial CT of the hip, knee and ankle were obtained. Coronal and sagittal reconstruction images of the knee were provided. Individualized dose optimization techniques were used for this CT. COMPARISON: None. FINDINGS: Standard protocol for the preoperative planning for the MakoPlasty robotic knee surgery was performed. Osteopenia. Moderate arthrosis of the left hip with osteophytes. Moderate to marked tricompartmental arthrosis of the knee with osteophytes. Mild arthrosis of the tibiotalar joint, subtalar joint and mid foot. CT/Extremity Lower without Contra IMPRESSION: Preoperative MakoPlasty Robotic knee surgical CT evaluation with findings as described above. Electronically Signed: Case Roman MD at 13:28 EDT ,
[2023-04-21 11:44] LABS: Absolute Lymphocyte Count 2.29 X10^3/uL (0.83-4.51); Basophil# 0.06 X10^3/uL; Basophil% 0.8 % (0-1); Eosinophil# 0.22 X10^3/uL; Hematocrit 41.5 % (37-47); Hemoglobin 13.7 g/dL (12.0-15.0); Lymphocyte # 2.29 X10^3/ul (0.83-4.51); Lymphocyte % 31.2 % (19-41); Mean Corpuscular Hgb 29.7 pg (27.0-32.0); Mean Platelet Vol. 10.4 fl (6.2-12.0); Monocyte# 0.77 X10^3/uL; Monocyte% 10.5 % (0-10); NRBC Flagged by Analyzer 0 % (0-5); Neutrophil # 3.97 X10^3/uL (2.7-7.7); Neutrophil % 54.2 % (47-70); Platelet Count 251 K/mm3 (150-450); RBC Distribution Width SD 45.6 fl (35.1-43.9); Red Blood Count 4.61 M/mm3 (4.2-5.4); White Blood Count 7.3 K/mm3 (4.4-11.0)
[2023-04-21 12:07] LABS: Albumin, Serum 3.7 g/dL (3.2-5.0); Anion Gap 2 (5-15); BUN 23 mg/dL (7-18); BUN/Creat Ratio 29.3 RATIO (10-20); Calcium,Total 8.9 mg/dL (8.5-10.1); Chloride 108 mmol/L (98-107); Creatinine, Serum 0.79 mg/dL (0.55-1.02); EST Glomerular Filtration Rate 78 mL/min (>60); Est Glom Filt Rate - Afr Amer 94 mL/min (>60); Glucose 106 mg/dL (74-106); Potassium 3.8 mmol/L (3.5-5.1); Sodium Level 141 mmol/L (136-145)
== END | disposition home or self-care (01) ==
PROVIDERS: PCP Family Medicine; Referring Provider Specialist; Visit Provider Specialist
DX: Z01.818 Encounter for other preprocedural examination (principal); M17.12 Unilateral primary osteoarthritis, left knee; M21.162 Varus deformity, not elsewhere classified, left knee
CPT/HCPCS: 36415; 73700; 80048; 82040; 85025; 93005

== ENCOUNTER → 2023-06-08 | Outpatient (CLI) | payer MEDICARE, OTHER, SELFPAY | END | disposition home or self-care (01) | PROVIDERS: PCP Family Medicine; Referring Provider Ophthalmology; Visit Provider Ophthalmology | DX: H53.2 Diplopia (principal) | CPT/HCPCS: 36415 ==

== ENCOUNTER → 2023-06-18 | Outpatient (CLI) | payer MEDICARE, OTHER, SELFPAY ==
[2023-06-18 10:50] LABS: Vitamin B12 427 pg/mL (211-911)
[2023-06-18 11:53] LABS: ALB/GLOB Ratio 1.1 RATIO (0.9-2.4); AST(SGOT) 16 U/L (15-37); Alanine Aminotransfer ALT/SGPT 22 U/L (13-56); Albumin, Serum 3.8 g/dL (3.2-5.0); Alkaline Phosphatase 101 U/L (45-117); Anion Gap 6 (5-15); BUN 17 mg/dL (7-18); BUN/Creat Ratio 22.9 RATIO (10-20); Calcium,Total 8.9 mg/dL (8.5-10.1); Chloride 105 mmol/L (98-107); Creatinine, Serum 0.74 mg/dL (0.55-1.02); EST Glomerular Filtration Rate 83 mL/min (>60); Est Glom Filt Rate - Afr Amer 100 mL/min (>60); Globulin 3.6 g/dL (2.2-4.2); Glucose 113 mg/dL (74-106); Potassium 3.7 mmol/L (3.5-5.1); Protein, Total 7.4 g/dL (6.4-8.2); Sodium Level 138 mmol/L (136-145); T4 Free Direct 1.19 ng/dL (0.76-1.46)
[2023-06-23 00:06] LABS: Free Kappa Light Chains 21.9 mg/L (3.3-19.4); Free Lambda Light Chains 14.8 mg/L (5.7-26.3); Vitamin B1, Thiamine 128.9 nmol/L (66.5-200.0)
== END | disposition home or self-care (01) ==
LOC: MTLAB 08:37
PROVIDERS: PCP Family Medicine; Referring Provider Psychiatry & Neurology Neurology; Visit Provider Psychiatry & Neurology Neurology
DX: G62.9 Polyneuropathy, unspecified (principal); E03.9 Hypothyroidism, unspecified
CPT/HCPCS: 36415; 80053; 82607; 82746; 83883; 84425; 84439; 84443

== ENCOUNTER → 2023-06-19 | Outpatient (CLI) | payer MEDICARE, OTHER, SELFPAY ==
--- NOTE | 2023-06-19 07:15 | MRI_ITS ---
EXAM: MR ORBITS WITHOUT AND WITH INTRAVENOUS CONTRAST () CLINICAL INDICATION: DIPLOPLIA TECHNIQUE: Multiplanar and multisequence MR images of the orbits without and with intravenous contrast. CONTRAST: CLARISCAN IV 24 CC COMPARISON: No relevant prior studies available. FINDINGS: BRAIN: No intracranial hemorrhage. No mass or mass effect. Diffuse cerebral volume loss. Chronic periventricular small vessel ischemic changes. No abnormal areas of enhancement within the brain parenchyma or elsewhere after contrast administration. No hydrocephalus. Chaudhry and white matter otherwise demonstrate normal signal characteristics throughout. ORBITS: Unremarkable. Optic globes are unremarkable.. Unremarkable optic nerve sheath and nerves. Unremarkable intraconal and extraconal spaces. Extra-ocular muscles are unremarkable. OPTIC CHIASM: Unremarkable. Unremarkable chiasm and post chiasmatic tracts. SELLA: Unremarkable. Pituitary gland is normal in size and signal. Normal sella Turcica and suprasellar structures. CAVERNOUS SINUSES: Unremarkable. SINUSES: Unremarkable as visualized. Clear. SOFT TISSUES: Unremarkable. Preseptal and superficial soft tissues are unremarkable. Lacrimal glands are unremarkable. VASCULATURE: Unremarkable. Superior ophthalmic veins are symmetric. MRI/Brain W/WO Contrast IMPRESSION: 1. Age-related changes. 2. Otherwise unremarkable MRI of the brain orbits. Electronically Signed: Duong Cneteno MD at 0:28 EDT ,
--- NOTE | 2023-06-19 07:42 | CT_ITS ---
HISTORY: Myasthenia gravis; assess for possible thymoma. TECHNIQUE: CT of the chest was performed after the intravenous administration of IV 100mL Isovue-300. Coronal and sagittal reformatted images. Individualized dose optimization techniques were used for this CT. 870 images. COMPARISON: None. FINDINGS: CENTRAL AIRWAYS: Patent. LUNGS: Minimal linear scarring in the lingula and right middle lobe. 3 mm pleural-based left lower lobe scar. PLEURA: No pneumothorax or significant pleural effusion. HEART/PERICARDIUM: Heart within normal limits in size with coronary artery disease. No pericardial effusion. AORTA/VESSELS: No thoracic aortic aneurysm or dissection flap. Mild atelectasis versus. MEDIASTINUM/DANYELLE: 1.3 cm peripherally calcified right thyroid nodule. No pathologically enlarged lymph nodes or mediastinal mass. OSSEOUS STRUCTURES: Mild degenerative change without suspicious osteoblastic or osteolytic lesion. UPPER ABDOMEN: Fatty infiltration of the liver. Mildly nodular adrenal glands. Colonic diverticulosis observed. CT/Chest WITH Contrast IMPRESSION: No evidence for thymic mass, lung mass, or mediastinal lymphadenopathy. 1.3 cm peripherally calcified right thyroid nodule. No acute abnormality identified in the chest. Electronically Signed: Sridevi Birmingham MD at 11:02 EDT ,
== END | disposition home or self-care (01) ==
PROVIDERS: PCP Family Medicine; Referring Provider Ophthalmology; Visit Provider Ophthalmology
DX: H53.2 Diplopia (principal)
CPT/HCPCS: 70553; 71260; A9575; Q9967; A4216

== ENCOUNTER → 2023-07-14 | Outpatient (CLI) | payer MEDICARE, OTHER, SELFPAY | END | disposition home or self-care (01) | LOC: SL 13:17 | PROVIDERS: PCP Family Medicine; Visit Provider Psychiatry & Neurology Neurology | DX: G47.10 Hypersomnia, unspecified (principal) | CPT/HCPCS: 95806 ==

== ENCOUNTER → 2023-07-15 | Outpatient (CLI) | payer MEDICARE, OTHER, SELFPAY ==
[2023-07-15 09:35] LABS: Absolute Lymphocyte Count 2.55 X10^3/uL (0.83-4.51); Absolute Neutrophil Count 3.6 X10^3/uL (2.0-7.7); Basophil# 0.06 X10^3/uL; Basophil% 0.8 % (0-1); Eosinophil# 0.19 X10^3/uL; Eosinophils% 2.6 % (0-5); Hematocrit 43.5 % (37-47); Hemoglobin 13.9 g/dL (12.0-15.0); Lymphocyte # 2.55 X10^3/ul (0.83-4.51); Lymphocyte % 35.4 % (19-41); Mean Corpuscular Hgb 29.2 pg (27.0-32.0); Mean Corpuscular Volume 91.4 fL (81-99); Mean Platelet Vol. 10.6 fl (6.2-12.0); Monocyte# 0.77 X10^3/uL; Monocyte% 10.7 % (0-10); NRBC Flagged by Analyzer 0 % (0-5); Neutrophil # 3.62 X10^3/uL (2.7-7.7); Neutrophil % 50.2 % (47-70); Platelet Count 308 K/mm3 (150-450); RBC Distribution Width CV 13.7 % (11.6-14.6); RBC Distribution Width SD 46.4 fl (35.1-43.9); Red Blood Count 4.76 M/mm3 (4.2-5.4); White Blood Count 7.2 K/mm3 (4.4-11.0)
[2023-07-15 10:01] LABS: Hemoglobin A1c 5.3 % (3.8-5.6)
[2023-07-15 10:05] LABS: ALB/GLOB Ratio 1.1 RATIO (0.9-2.4); AST(SGOT) 15 U/L (15-37); Alanine Aminotransfer ALT/SGPT 23 U/L (13-56); Albumin, Serum 3.9 g/dL (3.2-5.0); Alkaline Phosphatase 87 U/L (45-117); Anion Gap 4 (5-15); BUN 21 mg/dL (7-18); Calcium,Total 9.1 mg/dL (8.5-10.1); Chloride 104 mmol/L (98-107); Cholesterol 215 mg/dL (200); Creatinine, Serum 0.75 mg/dL (0.55-1.02); EST Glomerular Filtration Rate 82 mL/min (>60); Est Glom Filt Rate - Afr Amer 99 mL/min (>60); Globulin 3.6 g/dL (2.2-4.2); Glucose 116 mg/dL (74-106); High Density Lipoprotein 59 mg/dL; Potassium 3.5 mmol/L (3.5-5.1); Protein, Total 7.5 g/dL (6.4-8.2); Sodium Level 140 mmol/L (136-145); T4 Free Direct 1.13 ng/dL (0.76-1.46); Thyroid Stim Hormone (TSH) 1.31 uIU/mL (0.358-3.74); Triglycerides 170 mg/dL; Very Low Density Lipoprotein 34 mg/dL (5-40)
== END | disposition home or self-care (01) ==
LOC: LAB 08:38
PROVIDERS: PCP Family Medicine; Referring Provider Family Medicine; Visit Provider Family Medicine
DX: I10 Essential (primary) hypertension (principal); E03.9 Hypothyroidism, unspecified; R73.01 Impaired fasting glucose
CPT/HCPCS: 36415; 80053; 80061; 83036; 84439; 84443; 85025

== ENCOUNTER → 2023-07-21 | Outpatient (CLI) | payer MEDICARE, OTHER, SELFPAY ==
[2023-07-24 14:09] LABS: Albumin 3.9 g/dL (2.9-4.4); Alpha-1-Globulins 0.2 g/dL (0.0-0.4); Alpha-2-Globulins 0.8 g/dL (0.4-1.0); Gamma Globulin 1.1 g/dL (0.4-1.8); Immunoglobulin A 112 mg/dL (87-352); Immunoglobulin G 1034 mg/dL (586-1602); Immunoglobulin M 126 mg/dL (26-217); PROEL- TOTAL PROTEIN 7.1 g/dL (6.0-8.5)
== END | disposition home or self-care (01) ==
LOC: MTLAB 14:50
PROVIDERS: PCP Family Medicine; Referring Provider Psychiatry & Neurology Neurology; Visit Provider Psychiatry & Neurology Neurology
DX: G62.9 Polyneuropathy, unspecified (principal)
CPT/HCPCS: 36415; 82784; 84165; 86334; 86335

== ENCOUNTER → 2024-03-15 | Outpatient (CLI) | payer MEDICARE, OTHER, SELFPAY ==
--- NOTE | 2024-03-15 09:58 | BI_ITS ---
MAMMOGRAPHY - BILATERAL SCREENING REASON FOR EXAM: Female, 68 years old. Routine annual screening examination. PERTINENT HISTORY: Grandmother with breast cancer. TECHNIQUE: Digital bilateral breast herman (3D mammographic acquisition) in the CC and MLO projections. 2-D mediolateral oblique (MLO) and craniocaudad (CC) views of both breasts were obtained. CAD: Full Field Digital Mammography with Computer Added Detection was performed. COMPARISON: Comparison is made with prior study dated February 17, 2023 and December 19, 2019. FINDINGS: Breast Composition: There are scattered areas of fibroglandular density. There are no dominant masses or suspicious calcifications. Stable benign-appearing bilateral axillary lymph nodes. Stable 6.6 mm well-defined nodule in the deep upper outer aspect of the left breast most likely representing a small intramammary lymph node. No other significant abnormalities are identified. There has been no significant change since the prior study. BI/SCRN MAMM (CAD)W/HERMAN BILAT IMPRESSION: Stable bilateral screening mammogram. Yearly follow-up mammogram recommended. (A) ASSESSMENT CATEGORY: BIRADS Category 2: Benign. A letter regarding these results will be sent to the patient by the facility within 30 days. Approximately 10% of breast cancers are not detected by mammography. A normal mammogram should not delay biopsy of a clinically suspicious abnormality. [id number] Electronically Signed: North Lowe MD at 11:12 EDT ,
--- NOTE | 2024-03-15 10:02 | BD_ITS ---
STUDY: DUAL ENERGY X-RAY ABSORPTIOMETRY / DXA REASON FOR EXAM: Female, 68 years old. M810 TECHNIQUE: Bone Mineral Density (BMD) measurements of lumbar spine and bilateral hips were obtained. COMPARISON: None. FINDINGS: Lumbar Spine (L1-L4): g/cm2 (1.272) / T-score (2.1) / Z-score (4.1) Findings are suggestive of normal bone density with a low fracture risk. Left Femur Total: g/cm2 (1.214) / T-score (2.2) / Z-score (3.6) Left Femoral Neck: g/cm2 (1.020) / T-score (1.5) / Z-score (3.2) Right Femur Total: g/cm2 (1.092) / T-score (1.2) / Z-score (2.6) Right Femoral Neck: g/cm2 (0.920) / T-score (0.6) / Z-score (2.3) BD/Dexa Bone Density Study IMPRESSION: The patient is considered normal as outlined below according to World Justin Organization (WHO) criteria with a low fracture risk. Reference Information: The T-score is the number of standard deviations above or below the standard which is normal for young adults at their peak bone mineral density. The World Health Organization (WHO) interprets the T-scores as follows: Above -1 Normal bone density Between -1 and -2.5 Osteopenia Equal to / or below -2.5 Osteoporosis As a practical clinical guideline, osteopenia may be graded as follows: Mild -1 through -1.5 Moderate -1.6 through -2.0 Severe -2.1 through -2.4 The Z-score is the number of standard deviations above or below age-matched controls. A Z-score of less than -1.5 would be considered abnormal. References: 1. NIH Osteoporosis and Related Bone Diseases www osteo.org 2. International Society for Clinical Densitometry www iscd.org 3. National Osteoporosis Foundation www nof.org Electronically Signed: North Lowe MD at 8:52 EDT ,
== END | disposition home or self-care (01) ==
LOC: OPBD 09:56
PROVIDERS: PCP Family Medicine; Referring Provider Family Medicine; Visit Provider Family Medicine
DX: Z12.31 Encounter for screening mammogram for malignant neoplasm of breast (principal); M81.0 Age-related osteoporosis without current pathological fracture
CPT/HCPCS: 77063; 77067; 77080

== ENCOUNTER → 2024-07-28 | Outpatient (CLI) | payer MEDICARE, OTHER, SELFPAY ==
[2024-07-28 11:58] LABS: Absolute Lymphocyte Count 2.23 X10^3/uL (0.83-4.51); Absolute Neutrophil Count 3.7 X10^3/uL (2.0-7.7); Basophil# 0.04 X10^3/uL; Basophil% 0.6 % (0-1); Eosinophil# 0.19 X10^3/uL; Eosinophils% 2.8 % (0-5); Hematocrit 41.5 % (37-47); Hemoglobin 13.9 g/dL (12.0-15.0); Lymphocyte # 2.23 X10^3/ul (0.83-4.51); Lymphocyte % 32.3 % (19-41); Mean Corp Hgb Conc 33.5 g/dL (32-36); Mean Corpuscular Hgb 29.8 pg (27.0-32.0); Mean Corpuscular Volume 89.1 fL (81-99); Mean Platelet Vol. 10.8 fl (6.2-12.0); Monocyte# 0.74 X10^3/uL; Monocyte% 10.7 % (0-10); NRBC Flagged by Analyzer 0 % (0-5); Neutrophil # 3.67 X10^3/uL (2.7-7.7); Neutrophil % 53.2 % (47-70); Platelet Count 281 K/mm3 (150-450); RBC Distribution Width CV 13.5 % (11.6-14.6); RBC Distribution Width SD 44.3 fl (35.1-43.9); Red Blood Count 4.66 M/mm3 (4.2-5.4); White Blood Count 6.9 K/mm3 (4.4-11.0)
[2024-07-28 12:41] LABS: ALB/GLOB Ratio 1.1 RATIO (0.9-2.4); AST(SGOT) 19 U/L (15-37); Alanine Aminotransfer ALT/SGPT 32 U/L (13-56); Albumin, Serum 3.8 g/dL (3.2-5.0); Alkaline Phosphatase 70 U/L (45-117); Anion Gap 4 (5-15); BUN 19 mg/dL (7-18); BUN/Creat Ratio 23.2 RATIO (10-20); Calcium,Total 9.2 mg/dL (8.5-10.1); Chloride 104 mmol/L (98-107); Cholesterol 205 mg/dL (200); Creatinine, Serum 0.82 mg/dL (0.55-1.02); EST Glomerular Filtration Rate 74 mL/min (>60); Est Glom Filt Rate - Afr Amer 89 mL/min (>60); Globulin 3.5 g/dL (2.2-4.2); Glucose 102 mg/dL (74-106); High Density Lipoprotein 61 mg/dL; Potassium 3.4 mmol/L (3.5-5.1); Protein, Total 7.3 g/dL (6.4-8.2); Sodium Level 138 mmol/L (136-145); T4 Free Direct 1.07 ng/dL (0.76-1.46); Thyroid Stim Hormone (TSH) 0.763 uIU/mL (0.358-3.740); Triglycerides 153 mg/dL; Very Low Density Lipoprotein 31 mg/dL (5-40)
== END | disposition home or self-care (01) ==
LOC: BFHLAB 10:35
PROVIDERS: PCP Family Medicine; Referring Provider Family Medicine; Visit Provider Family Medicine
DX: E03.9 Hypothyroidism, unspecified (principal); I10 Essential (primary) hypertension; R53.83 Other fatigue
CPT/HCPCS: 36415; 80053; 80061; 84439; 84443; 85025

== ENCOUNTER 2024-09-22 23:18 | Emergency (ER) | payer MEDICARE, OTHER, SELFPAY ==
[2024-09-22 23:18] VITALS: BP 144/93; PULSE 103; RESP 22; TEMP 37.9; O2SAT 94; BMI 41.3
[2024-09-22 23:38] VITALS: BP 144/93; PULSE 103; RESP 22; TEMP 37.9; O2SAT 94
--- NOTE | 2024-09-23 00:53 | RAD_ITS ---
INDICATION: cough EXAMINATION/TECHNIQUE: X-RAY - XR Chest 2 Views COMPARISON: No relevant prior comparison study available FINDINGS: LINES/DEVICES: None. LUNGS: Patchy infiltrate in the left lung base/lingula with small left pleural effusion. No pneumothorax. MEDIASTINUM: Unremarkable. CARDIAC SILHOUETTE: Not enlarged. BONES AND SOFT TISSUES: No acute abnormalities. RAD/Chest PA and Lateral IMPRESSION: Left basilar/lingular infiltrate with small pleural effusion consistent with pneumonia. Radiographic follow-up recommended in 8-12 weeks to confirm complete resolution. Electronically Signed: Jackie Christopher MD at 2:08 EST ,
--- NOTE | 2024-09-23 00:53 | CT_ITS ---
EXAM: CT Abdomen And Pelvis W/ Contrast Injection HISTORY: abd pain TECHNIQUE: Routine protocol CT abdomen pelvis. IV Contrast: IV 100mL Isovue-370 . Oral Contrast: without. Sagittal and coronal images were reconstructed. RADIATION DOSAGE (If Supplied By Facility): CTDIvol = ( 15.42 ) mGy, DLP = ( 1359.49 ) mGycm Individualized dose optimization techniques were used for this CT. COMPARISON: None. LIMITATIONS: None. FINDINGS: LOWER CHEST: Small left pleural effusion with dependent atelectasis left lower lobe. Small hiatal hernia. LIVER: Fatty infiltration. GALLBLADDER/BILE DUCTS: Unremarkable. PANCREAS: Unremarkable. SPLEEN: Unremarkable. ADRENAL GLANDS: Nodular thickening of the adrenal glands. KIDNEYS / URETERS: Unremarkable. BOWEL / MESENTERY: Mildly dilated small bowel in the lower abdomen with prominent folds. No distinct transition zone identified. No bowel obstruction. APPENDIX: Identified and normal. No evidence of acute appendicitis. PERITONEUM: No free air. No free fluid. VESSELS: Abdominal aorta is normal caliber. RETROPERITONEUM: Unremarkable. REPRODUCTIVE ORGANS: Uterus not identified.. BLADDER: Unremarkable. ABDOMINAL WALL: Unremarkable. BONES: No acute abnormality. Degenerative changes in the lumbar spine with anterolisthesis at L5-S1 OTHER: None. CT/Abdomen/Pelvis W IV Cont ONLY IMPRESSION: Mildly dilated small bowel in the lower abdomen with prominent folds may be consistent with acute enteritis. No definite bowel obstruction. Small left pleural effusion and dependent atelectasis.. Electronically Signed: Jackie Christopher MD at 2:02 EST ,
[2024-09-23] MEDS: Acetaminophen 500 MG Tablet 1000 MG PO (01:00)
[2024-09-23] MEDS: DiphenhydrAMINE 50 MG/ML Syringe 25 MG IV (01:01)
[2024-09-23] MEDS: Ketorolac 15 MG/ML Vial IV (01:01)
[2024-09-23] MEDS: Metoclopramide 10 MG/2 ML Vial IV (01:01)
[2024-09-23] MEDS: 0.9% Normal Saline (1000mL) 1,000 ML 999 ML IV (01:02)
[2024-09-23 01:04] VITALS: BP 156/71; PULSE 91; RESP 20; TEMP 37.7; O2SAT 91
[2024-09-23 01:20] LABS: AST(SGOT) 20 U/L (15-37); Alanine Aminotransfer ALT/SGPT 27 U/L (13-56); Albumin, Serum 3.4 g/dL (3.2-5.0); Alkaline Phosphatase 82 U/L (45-117); Anion Gap 7 (5-15); BUN 10 mg/dL (7-18); BUN/Creat Ratio 14.3 RATIO (10-20); Bilirubin, Direct 0.25 mg/dL (0.00-0.30); Calcium,Total 8.7 mg/dL (8.5-10.1); Chloride 99 mmol/L (98-107); EST Glomerular Filtration Rate 88 mL/min (>60); Est Glom Filt Rate - Afr Amer 107 mL/min (>60); Estimated Creatinine Clearance 96.22 ml/min; Globulin 4.1 g/dL (2.2-4.2); Glucose 132 mg/dL (74-106); Lipase 18 U/L (13-75); Magnesium 1.9 mg/dL (1.6-2.6); Potassium 3.1 mmol/L (3.5-5.1); Protein, Total 7.5 g/dL (6.4-8.2); Sodium Level 134 mmol/L (136-145)
[2024-09-23 01:31] LABS: Lactic Acid 0.9 mmol/L (0.4-1.9)
[2024-09-23 01:51] LABS: Absolute Lymphocyte Count 0.91 X10^3/uL (0.83-4.51); Absolute Neutrophil Count 12.5 X10^3/uL (2.0-7.7); Basophil# 0.06 X10^3/uL; Basophil% 0.4 % (0-1); Hematocrit 41.4 % (37-47); Lymphocyte # 0.91 X10^3/ul (0.83-4.51); Lymphocyte % 6.3 % (19-41); Mean Corp Hgb Conc 33.8 g/dL (32-36); Mean Corpuscular Hgb 29.5 pg (27.0-32.0); Mean Corpuscular Volume 87.2 fL (81-99); Mean Platelet Vol. 10.7 fl (6.2-12.0); Monocyte% 6.2 % (0-10); NRBC Flagged by Analyzer 0 % (0-5); Neutrophil # 12.46 X10^3/uL (2.7-7.7); Neutrophil % 86.5 % (47-70); Platelet Count 246 K/mm3 (150-450); RBC Distribution Width CV 13.4 % (11.6-14.6); RBC Distribution Width SD 42.7 fl (35.1-43.9); Red Blood Count 4.75 M/mm3 (4.2-5.4); White Blood Count 14.4 K/mm3 (4.4-11.0)
--- NOTE | 2024-09-23 02:40 | EX.ED.DYSGE1 ---
HPI History of Present Illness Chief Complaint: General Illness Informant: patient Narrative Narrative: Patient is a 68-year-old female with past medical history of hypertension hypothyroidism migraine headache and previous colon resection. She states that she initially got sick with cough and congestion followed by nausea. She states this lasted a few days and then she began to feel somewhat better. However her also became sick with similar symptoms and then her symptoms returned. She states she is unsure if she has developed an infection such as pneumonia making her sick and therefore comes in for evaluation [facility] Medical History (Reviewed 05/11/24 @ 09:56 by Mirtha Yuen APPEALS REVIEWER VETERAN, APPEALS REVIEWER VETERAN-C) Wears glasses Post-menopausal History of steroid therapy Thyroid disease Arthritis Restless legs Tremors of nervous system History of diverticulitis Non-smoker History of pain when walking Diverticulitis Migraines Abnormal CT scan, colon Hypertension Hypothyroidism Anxiety Depression Home Medications ?Medication ?Instructions ?Recorded ?Last Taken ?Type fluoxetine 40 mg capsule 40 mg PO DAILY depression 09/29/21 Unknown History hydrochlorothiazide 25 mg tablet 25 mg PO DAILY bp 09/29/21 02/19/22 History levothyroxine 125 mcg tablet 125 mcg PO DAILY thyroid 09/29/21 02/19/22 History acetaminophen 325 mg tablet 650 mg (2 x 325 mg) PO Q6H PRN PRN 10/13/21 Unknown Rx (Tylenol) PAIN 1-10 #0 tabs aspirin 81 mg capsule 81 mg PO DAILY 02/12/22 Unknown History losartan 25 mg tablet 25 mg PO DAILY 02/12/22 02/19/22 History cetirizine 10 mg capsule (Allergy 10 mg PO DAILY PRN 08/05/23 Unknown History Relief (cetirizine)) cholecalciferol (vitamin D3) 50 50 mcg PO DAILY 08/05/23 Unknown History mcg (2,000 unit) capsule multivitamin 1 tab PO DAILY 11/06/23 Unknown History pyridostigmine bromide 60 mg 60 mg PO .QID #360 tabs 04/11/24 Unknown Rx tablet (Mestinon) prednisone 10 mg tablet See Rx Instructions .Route 05/31/24 Unknown Rx .COMPLEX #28 tabs doxycycline hyclate 100 mg capsule 100 mg PO BID 10 days #20 caps 09/23/24 Unknown Rx ondansetron 4 mg disintegrating 4 mg PO TID PRN nausea and 09/23/24 Unknown Rx tablet vomiting #21 tabs Allergy/AdvReac Type Severity Reaction Status Date / Time lisinopril Allergy Severe Other Verified 09/22/24 23:18 Surgical History (Reviewed 05/11/24 @ 09:56 by Mirtha Yuen APPEALS REVIEWER VETERAN, APPEALS REVIEWER VETERAN-C) Hx of tonsillectomy Hx of hysterectomy S/P colectomy Social History (Updated 05/11/24 @ 09:58 by Mirtha Yuen APPEALS REVIEWER VETERAN, APPEALS REVIEWER VETERAN-C) Smoking Status: Never smoker ROS ROS ED Constitutional Constitutional ED: Reports chills and fever(s) ENT ENT ED: Reports rhinorrhea; Denies sore throat Cardiovascular Cardiovascular: Denies chest pain Respiratory/Chest Respiratory/Chest: Reports cough; Denies dyspnea Gastrointestinal Gastrointestinal: Reports abdominal pain, constipation, nausea and vomiting; Denies diarrhea Genitourinary Genitourinary ED: Denies dysuria Musculoskeletal Musculoskeletal: Reports myalgias Integumentary Denies rash Neurologic Neurologic: Reports headache(s) Hematologic/Lymphatic Hematologic/Lymphatic: Denies easy bleeding or easy bruising EXAM Physical Exam Const Vital Signs: 09/22/24 23:18 09/22/24 23:38 09/22/24 23:38 Temperature 100.3 F H 100.3 F H Temperature Source Oral Oral Pulse Rate 103 H 103 H Respiratory Rate 22 H 22 H Respiratory Effort Normal Non-Labored Blood Pressure 144/93 H 144/93 H Blood Pressure Mean 110 110 Pulse Ox 94 94 Oxygen Delivery Method Room Air Room Air 09/23/24 01:04 09/23/24 02:58 Temperature 100 F H 99 F Temperature Source Oral Pulse Rate 91 72 Respiratory Rate 20 H 18 Respiratory Effort Blood Pressure 156/71 H 135/62 H Blood Pressure Mean 99 86 Pulse Ox 91 95 Oxygen Delivery Method Room Air Positive well nourished, well developed and obese General Appearance ED: well developed; Negative for pallor Nutritional Appearance: obese HEENT HEENT Narrative: There is cobblestoning noted in the posterior pharynx consistent with sinus drainage No airway edema or compromise No secondary findings in the posterior pharynx to suggest infection Mucous membranes are slightly dry and tacky Eyes PERRL and EOMs intact bilaterally General Eye ED: Negative for scleral icterus Neck supple Neck Narrative: No nuchal rigidity or meningeal signs noted Resp normal respiratory effort Resp Narrative: Breath sounds are slight diminished throughout with faint rhonchi noted in the left lower lobe However no nasal flaring retractions tachypnea or accessory muscle use Cardio regular rate and regular rhythm GI non-distended and no masses GI Narrative: Abdomen is obese soft and nondistended with hyperactive bowel sounds. There is mild diffuse pain with palpation No voluntary guarding or rigidity or pulsatile mass Auscultation: hyperactive bowel sounds Palpation: soft Extremity normal to inspection Neuro oriented x3, CN's II-XII intact bilaterally and no sensory deficits noted Sensorium / Orientation: alert Motor Exam: strength 5/5 throughout Psych mental status grossly normal Skin no rashes or lesions noted Skin Narrative: Skin turgor is slightly increased General Skin Exam: Negative for jaundice or pallor MDM MDM MDM Narrative Medical decision making narrative: Patient arrived to the ER hypertensive and with low-grade fever. Constellation of symptoms is concerning for viral infection such as [place] versus rotavirus versus COVID versus influenza versus RSV. She also plans to have pneumonia or recurrent small bowel obstruction or viral stomach infection such as norovirus or rotavirus. Therefore elected to perform basic laboratory studies with a chest x-ray viral swab and CT scan of the abdomen and pelvis. Labs revealed leukocytosis with mild left shift. Otherwise there is no clinically significant finding. Chest x-ray showed changes concerning for developing pneumonia on the left lung consistent with her exam. CT abdomen pelvis did not show any signs of small bowel obstruction but did show mild inflammation which would correlate with her gastritis symptoms as well. After receiving IV fluids Toradol Benadryl and Reglan patient reported resolution of her headache her vitals stabilized and she reported feeling better. As she is not showing changes concerning for sepsis she is not hypoxic she is not in respiratory distress she is not having a bowel obstruction there is no need for further evaluation in the ER she is otherwise safe for discharge with symptomatic care. History & Record Review Discussion w/independent historian: Patient Lab Data Attestation: I reviewed the patient's lab results. Labs: Laboratory Results - last 24 hr 09/23/24 09/23/24 09/23/24 00:32 00:32 01:27 WBC 14.4 H Cancelled Corrected WBC APPEALS [employer]VIEWER [employer]ETERAN Cancelled RBC 4.75 Cancelled Hgb 14.0 Cancelled Hct 41.4 Cancelled MCV 87.2 Cancelled MCH 29.5 Cancelled MCHC 33.8 Cancelled RDW Std Deviation 42.7 Cancelled RDW Coeff of Marlee 13.4 Cancelled Plt Count 246 Cancelled MPV 10.7 Cancelled Immature Gran % (Auto) 0.600 Cancelled Neut % (Auto) 86.5 H Cancelled Lymph % (Auto) 6.3 L Cancelled [place] % (Auto) 6.2 Cancelled Eos % (Auto) 0.0 Cancelled Baso % (Auto) 0.4 Cancelled Absolute Neuts (auto) 12.5 H Cancelled Absolute Lymphs (auto) 0.91 Cancelled Total Counted [employer]VIEWER [employer]ERAN Cancelled Neutrophils % (Manual) APPEALS [employer]VIEWER [employer]ERAN Cancelled Band Neutrophils % APPEALS REVIEWER VETERAN Cancelled Lymphocytes % (Manual) APPEALS REVIEWER VETERAN Cancelled Monocytes % (Manual) APPEALS REVIEWER VETERAN Cancelled Eosinophils % (Manual) APPEALS REVIEWER VETERAN Cancelled Basophils % (Manual) APPEALS REVIEWER VETERAN Cancelled Metamyelocytes % APPEALS REVIEWER VETERAN Cancelled Myelocytes % APPEALS REVIEWER VETERAN Cancelled Promyelocytes % APPEALS REVIEWER VETERAN Cancelled Blast Cells % APPEALS REVIEWER VETERAN Cancelled Plasma Cell % (Manual) APPEALS REVIEWER VETERAN Cancelled Other Cells % APPEALS REVIEWER VETERAN Cancelled Nucleated RBC % 0 Cancelled Nucleated RBCs/100 WBC APPEALS REVIEWER VETERAN Cancelled Differential Comment APPEALS REVIEWER VETERAN Cancelled Diff Path Review APPEALS REVIEWER VETERAN Cancelled Hypersegmented Neuts APPEALS REVIEWER VETERAN Cancelled Atypical Lymphocytes APPEALS REVIEWER VETERAN Cancelled Reactive Lymphocytes APPEALS REVIEWER VETERAN Cancelled Smudge Cells APPEALS REVIEWER VETERAN Cancelled Toxic Granulation APPEALS REVIEWER VETERAN Cancelled Toxic Vacuolation APPEALS REVIEWER VETERAN Cancelled Dohle Bodies APPEALS REVIEWER VETERAN Cancelled Nash Rods APPEALS REVIEWER VETERAN Cancelled Platelet Estimate APPEALS REVIEWER VETERAN Cancelled Plt Morphology Comment APPEALS REVIEWER VETERAN Cancelled RBC Morphology APPEALS REVIEWER VETERAN APPEALS REVIEWER VETERAN Cancelled Polychromasia APPEALS REVIEWER VETERAN Hypochromasia APPEALS REVIEWER VETERAN Basophilic Stippling APPEALS REVIEWER VETERAN Anisocytosis APPEALS REVIEWER VETERAN Microcytosis APPEALS REVIEWER VETERAN Macrocytosis APPEALS REVIEWER VETERAN Spherocytes APPEALS REVIEWER VETERAN Sickle Cells APPEALS REVIEWER VETERAN Target Cells APPEALS REVIEWER VETERAN Tear Drop Cells APPEALS REVIEWER VETERAN Ovalocytes APPEALS REVIEWER VETERAN Stomatocytes APPEALS REVIEWER VETERAN [place] Bodies APPEALS REVIEWER VETERAN Buffalo Cells APPEALS REVIEWER VETERAN Bite Cells APPEALS REVIEWER VETERAN Crenated Cell APPEALS REVIEWER VETERAN Acanthocytes (Spur) APPEALS REVIEWER VETERAN Rouleaux APPEALS REVIEWER VETERAN Schistocytes APPEALS REVIEWER VETERAN ESR Sodium 134 L Potassium 3.1 L Chloride 99 Carbon Dioxide 29.0 Anion Gap 7 BUN 10 Creatinine 0.70 Estim Creat Clear Calc 96.22 Est GFR (MDRD) Af Amer 107 Est GFR (MDRD) Non-Af 88 BUN/Creatinine Ratio 14.3 Glucose 132 H Lactic Acid 0.9 Calcium 8.7 Magnesium 1.9 Total Bilirubin 0.80 Direct Bilirubin 0.25 AST 20 ALT 27 Alkaline Phosphatase 82 Total Protein 7.5 Albumin 3.4 Globulin 4.1 Lipase 18 09/23/24 01:27 WBC Corrected WBC RBC Hgb Hct MCV MCH MCHC RDW Std Deviation RDW Coeff of Marlee Plt Count MPV Immature Gran % (Auto) Neut % (Auto) Lymph % (Auto) [place] % (Auto) Eos % (Auto) Baso % (Auto) Absolute Neuts (auto) Absolute Lymphs (auto) Total Counted Neutrophils % (Manual) Band Neutrophils % Lymphocytes % (Manual) Monocytes % (Manual) Eosinophils % (Manual) Basophils % (Manual) Metamyelocytes % Myelocytes % Promyelocytes % Blast Cells % Plasma Cell % (Manual) Other Cells % Nucleated RBC % Nucleated RBCs/100 WBC Differential Comment Diff Path Review Hypersegmented Neuts Atypical Lymphocytes Reactive Lymphocytes Smudge Cells Toxic Granulation Toxic Vacuolation Dohle Bodies Nash Rods Platelet Estimate Plt Morphology Comment RBC Morphology Cancelled Polychromasia Cancelled Hypochromasia Cancelled Basophilic Stippling Cancelled Anisocytosis Cancelled Microcytosis Cancelled Macrocytosis Cancelled Spherocytes Cancelled Sickle Cells Cancelled Target Cells Cancelled Tear Drop Cells Cancelled Ovalocytes Cancelled Stomatocytes Cancelled [place] Bodies Cancelled Sia Cells Cancelled Bite Cells Cancelled Crenated Cell Cancelled Acanthocytes (Spur) Cancelled Rouleaux Cancelled Schistocytes Cancelled ESR Cancelled Sodium Potassium Chloride Carbon Dioxide Anion Gap BUN Creatinine Estim Creat Clear Calc Est GFR (MDRD) Af Amer Est GFR (MDRD) Non-Af BUN/Creatinine Ratio Glucose Lactic Acid Calcium Magnesium Total Bilirubin Direct Bilirubin AST ALT Alkaline Phosphatase Total Protein Albumin Globulin Lipase Radiography Diagnostic Testing: Clinical Impression(s) from Imaging Studies Abdomen/Pelvis CT 09/23/24 00:53 IMPRESSION: Mildly dilated small bowel in the lower abdomen with prominent folds may be consistent with acute enteritis. No definite bowel obstruction. Small left pleural effusion and dependent atelectasis.. Electronically Signed: Jackie Christopher MD at 2:02 EST , Chest X-Ray 09/23/24 00:53 IMPRESSION: Left basilar/lingular infiltrate with small pleural effusion consistent with pneumonia. Radiographic follow-up recommended in 8-12 weeks to confirm complete resolution. Electronically Signed: Jackie Christopher MD at 2:08 EST Reading Location ID and State: [id number] / [place] Tel , Service support , Chest x-ray as interpreted by the emergency medicine physician reveals hazy opacities in the left lower lung concerning for developing pneumonia Discharge Plan Triage Chief Complaint: General Illness ED Provider: Armando Tovar Dx/Rx/DC Orders Clinical Impression: Left lower lobe pneumonia, Nausea & vomiting, Mild dehydration, Myasthenia gravis, Hypertension Instructions: ED Dehydration (Adult), ED Pneumonia (Adult) Prescriptions: New ondansetron 4 mg tablet,disintegrating 4 mg PO TID PRN (Reason: nausea and vomiting) Qty: 21 0RF doxycycline hyclate 100 mg capsule 100 mg PO BID 10 Days Qty: 20 0RF No Action Allergy Relief (cetirizine) 10 mg capsule 10 mg PO DAILY PRN cholecalciferol (vitamin D3) 50 mcg (2,000 unit) capsule 50 mcg PO DAILY multivitamin Tablet 1 tab PO DAILY Patient Comments: no magnesium pyridostigmine bromide [Mestinon] 60 mg tablet 60 mg PO .QID Qty: 360 2RF fluoxetine 40 mg capsule 40 mg PO DAILY Patient Comments: t1 BY MOUTH DAILY levothyroxine 125 mcg tablet 125 mcg PO DAILY Patient Comments: TAKE 1 TABLET EVERY MORNING on an empty stomach. hydrochlorothiazide 25 mg tablet 25 mg PO DAILY Patient Comments: TAKE 1 TABLET BY MOUTH ONCE DAILY acetaminophen [Tylenol] 325 mg Tablet 650 mg PO Q6H PRN PRN (Reason: PAIN 1-10) Qty: 0 0RF losartan 25 mg tablet 25 mg PO DAILY Patient Comments: TAKE 1 TABLET BY MOUTH ONCE DAILY aspirin 81 mg Capsule 81 mg PO DAILY prednisone 10 mg tablet See Rx Instructions .Route .COMPLEX Qty: 28 0RF Rx Instructions: 6 tabs orally daily x 2 days then 5 tabs x 1 day then 4 tabs x 1 day then 3 tabs x 1 day then 2 tabs x 1 day then 1 tab x 1 day Primary Care Provider: Shon Smith Referrals: Shon Smith DO [Primary Care Provider] - Activity Restrictions/Additional Instructions: Your x-ray showed pneumonia in your left lower lung. Take the doxycycline to help resolve this. Use the Zofran to control further bouts of nausea and vomiting and keep yourself well-hydrated. Return to the ER should you have any further concerns or worsening of symptoms Print Language: French Disposition Disposition: Home, Self Care Discharge Date/Time: 09/23/24 03:01
[2024-09-23 02:58] VITALS: BP 135/62; PULSE 72; RESP 18; TEMP 37.2; O2SAT 95
[2024-09-23] MEDS: Doxycycline 100 MG CAPSULE PO (02:59)
== END 2024-09-23 03:01 | disposition home or self-care (01) ==
PROVIDERS: Emergency Provider Emergency Medicine; PCP Family Medicine; Visit Provider Emergency Medicine
DX: J18.9 Pneumonia, unspecified organism (principal); G70.00 Myasthenia gravis without (acute) exacerbation; I10 Essential (primary) hypertension; K29.70 Gastritis, unspecified, without bleeding; E86.0 Dehydration; R11.2 Nausea with vomiting, unspecified; E03.9 Hypothyroidism, unspecified; F32.A Depression, unspecified; Z79.899 Other long term (current) drug therapy; Z79.890 Hormone replacement therapy; Z79.82 Long term (current) use of aspirin; Z90.710 Acquired absence of both cervix and uterus; Z90.49 Acquired absence of other specified parts of digestive tract
CPT/HCPCS: 71046; 74177; 80048; 80076; 83605; 83690; 83735; 85025; 87631; 96361; 96374; 96375; 99283; Q9967; A4216

== ENCOUNTER → 2025-03-17 | Outpatient (CLI) | payer MEDICARE, OTHER, SELFPAY ==
--- NOTE | 2025-03-17 08:23 | BI_ITS ---
EXAM: SCRN MAMM (CAD)W/HERMAN BILAT DATE: 03/17/2025 CLINICAL HISTORY: F, Age 69 y/o , SCREENING TECHNIQUE: SCRN MAMM (CAD)W/HERMAN BILAT COMPARISON: Prior exam(s) dated 03/15/2024, 02/17/2023, 12/18/2021. FINDINGS: TISSUE DENSITY: There are scattered areas of fibroglandular density. Bilateral Breast Mammographic Findings: No significant masses, calcifications or other abnormalities are identified. BI/SCRN MAMM (CAD)W/HERMAN BILAT IMPRESSION: There is no mammographic evidence of malignancy. OVERALL FINAL ASSESSMENT BI-RADS 1: NEGATIVE. RECOMMEND ANNUAL MAMMOGRAPHIC SCREENING. RECOMMENDATION: Routine annual follow-up in 1 Year A letter with findings and recommendations will be mailed to the patient. Reading Location: [id number]
== END | disposition home or self-care (01) ==
LOC: OPBI 08:21
PROVIDERS: PCP Family Medicine; Referring Provider Family Medicine; Visit Provider Family Medicine
DX: Z12.31 Encounter for screening mammogram for malignant neoplasm of breast (principal)
CPT/HCPCS: 77063; 77067

== ENCOUNTER → 2025-07-27 | Outpatient (CLI) | payer MEDICARE, OTHER, SELFPAY ==
[2025-07-27 12:35] LABS: Hematocrit 40.3 % (37-47); Hemoglobin 13.3 g/dL (12.0-15.0); Immature Granulocytes Count 0.030 X10^3/uL (0.0-0.0); Mean Corp Hgb Conc 33.0 g/dL (32-36); Mean Corpuscular Volume 91.2 fL (81-99); Mean Platelet Vol. 10.4 fl (6.2-12.0); NRBC Flagged by Analyzer 0 % (0-5); Platelet Count 297 K/mm3 (150-450); RBC Distribution Width CV 13.8 % (11.6-14.6); RBC Distribution Width SD 46.9 fl (35.1-43.9); Red Blood Count 4.42 M/mm3 (4.2-5.4); White Blood Count 8.1 K/mm3 (4.4-11.0)
[2025-07-27 13:29] LABS: AST(SGOT) 24 U/L (<=31); Alanine Aminotransfer ALT/SGPT 26 U/L (<=34); Albumin, Serum 4.3 g/dL (3.4-4.8); Alkaline Phosphatase 70 U/L (35-104); Anion Gap 10 (5-15); BUN 15 mg/dL (4-19); BUN/Creat Ratio 23.6 RATIO (10-20); Calcium,Total 9.4 mg/dL (7.6-11.0); Carbon Dioxide 28.5 mmol/L (21.0-32.0); Chloride 102 mmol/L (98-108); Cholesterol 227 mg/dL (<=200); Globulin 2.7 g/dL (2.2-4.2); Glucose 88 mg/dL (70-99); Low Density Lipoprotein Calc. 137 mg/dL; Potassium 3.4 mmol/L (3.3-5.1); Triglycerides 153 mg/dL; Very Low Density Lipoprotein 31 mg/dL (5-40); Vitamin B12 556 pg/mL (180-914); Vitamin D,25 Hydroxy 50.4 ng/mL (30-100); cholesterol:hdl ratio screen 3.61
== END | disposition home or self-care (01) ==
LOC: BFHLAB 11:23
PROVIDERS: PCP Family Medicine; Visit Provider Family Medicine
DX: E03.9 Hypothyroidism, unspecified (principal); I10 Essential (primary) hypertension; R53.82 Chronic fatigue, unspecified; E55.9 Vitamin D deficiency, unspecified
CPT/HCPCS: 36415; 80053; 80061; 82306; 82607; 84439; 84443; 85025